=== PATIENT | female | born 1965 | race American Indian/Alaskan Native ===

== ENCOUNTER 2017-05-03 12:38 | Day surgery (SDC) | payer BC ==
[2017-05-03 13:35] LABS: BASO # 0.01 K/mm3 (0.0-2.0); BASO % 0.1 % (0.0-3.0); GRAN # 7.04 (1.4-6.5); GRAN % 89.2 % (50.0-68.0); HEMATOCRIT 32.2 % (36.0-48.0); LYMPH # 0.3 (1.2-3.4); LYMPH % 3.7 % (22.0-35.0); MEAN CELL VOLUME 77.6 fl (80.0-105.0); MEAN CORPUSCULAR HEMOGLOBIN 23.6 pg (25.0-35.0); MEAN CORPUSCULAR HGB CONC 30.4 g/dl (31.0-37.0); MEAN PLATELET VOLUME 8.8 fl (7.0-11.0); MONO # 0.6 (0.1-0.6); PLATELET COUNT 696 10^3/uL (120.0-450.0); RED CELL DISTRIBUTION WIDTH 20.5 % (11.5-14.5); WHITE BLOOD COUNT 7.9 10^3/ul (4.5-11.0)
[2017-05-03 13:39] LABS: BLOOD UREA NITROGEN 15 mg/dL (7-21); CALCIUM 9.4 mg/dL (8.4-10.5); CARBON DIOXIDE 27 mmol/L (21-33); CHLORIDE 98 mmol/L (98-107); GFR AFRICAN-AMERICAN > 60; GLUCOSE,RANDOM 92 mg/dL (70-110); POTASSIUM 3.5 mmol/L (3.6-5.0); SODIUM 139 mmol/L (132-148)
[2017-05-03 13:48] LABS: INR 1.19 (0.93-1.08); PARTIAL THROMBOPLASTIN TIME 30.7 Seconds (25.1-36.5)
[2017-05-03 14:02] VITALS: BMI 26.0
[2017-05-03 14:10] VITALS: BP 123/78; RESP 18; O2SAT 99
[2017-05-03 15:01] LABS: BAND 2 % (0-2); NEUTROPHIL 87 % (50.0-70.0); NUCLEATED RED BLOOD CELL 2 %; PLATELET ESTIMATE NORMAL (NORMAL)
[2017-05-03] MEDS ORDERED: Oxycodone/Acetaminophen 5/325 mg Tab PO PRN (15:01)
[2017-05-03 15:35] VITALS: PULSE 100; TEMP 98.5
--- NOTE | 2017-05-03 16:51 | US ---
PROCEDURE: Ultrasound guided left thoracentesis. CLINICAL HISTORY: Metastatic breast CA. New left pleural effusion. Evaluate for malignancy. Shortness of breath PHYSICIAN(S): Brennen Pool MD. TECHNIQUE: The relative risks and indications of the procedure were explained to the patient and consent obtained. The patient was placed in a sitting position on the stretcher and sonography of the right chest performed. This revealed a small leftpleural effusion. A left posterolateral intercostal approach was selected and the area prepped and draped usual sterile fashion. 1% Xylocaine was used to anesthetize the skin and soft tissues. A 7 Frisian thoracentesis catheter was trocared into the right pleural cavity and 475 ccof gallegos fluid aspirated. A cytology specimen was sent. IMPRESSION: 1. Ultrasound guided left thoracentesis. 475 cc of gallegos fluid were aspirated. A cytology specimen was sent
--- NOTE | 2017-05-04 09:17 | RAD ---
HISTORY: left thora COMPARISON: Correlations made to PET-CT performed 11/24/2015 TECHNIQUE: Chest PA and lateral FINDINGS: LUNGS: Left basilar atelectasis. PLEURA: Elevation of the left hemidiaphragm. No significant pleural effusion identified. No pneumothorax apparent. CARDIOVASCULAR: Normal. OSSEOUS STRUCTURES: No significant abnormalities. VISUALIZED UPPER ABDOMEN: Normal. OTHER FINDINGS: Right internal jugular access chest port redemonstrated. IMPRESSION: Left basilar atelectasis. No appreciable pneumothorax.
== END 2017-05-03 17:00 | disposition home or self-care (01) ==
LOC: SDS 12:38 → OPSURG 12:38
PROVIDERS: ATTEND Radiology Vascular & Interventional Radiology
DX: J90 Pleural effusion, not elsewhere classified (principal); Z85.3 Personal history of malignant neoplasm of breast
CPT/HCPCS: 32555; 36415; 71020; 80048; 85025; 85610; 85730; 88108; 88305; J2405

== ENCOUNTER 2017-06-09 16:42 | Inpatient (IN) | payer BC, MEDICARE ==
[2017-06-09 16:54] VITALS: BMI 25.8
--- NOTE | 2017-06-09 18:19 | ED PDOC ---
Arrival/HPI - General Chief Complaint: Chest Pain Time Seen by Provider: 06/09/17 17:59 Historian: Patient - History of Present Illness Narrative History of Present Illness (Text): 06/09/17 18:17 pt p/w + 1.5-2 weeks onset of worsening chest pain/pressure and weakness, + voice changes; pt states symptoms were initially intermittent, now the chest pain is constant over the last 3 days, rated at 7/10 pain; pt states + sob with exertion; + voice changes, no drooling and noted tongue deviating to the left; pt states no fever/chills/sweats, + weakness, no palpitations, no abd pain, no appetite, no n/v, no numbness/tingling, no urinary/bowel changes, no fall/trauma /sick contact, no travel; pt arrived to ED for further eval; pt's without other complaints 06/09/17 18:19 pt is an oncology patient, left Breast CA, stage 3 Time/Duration: > week Symptom Onset: Gradual Symptom Course: Worsening Quality: Tightness, Throbbing Severity Level: 7, Severe Activities at Onset: Rest Context: Home Past Medical History - Provider Review Nursing Documentation Reviewed: Yes - Travel History Have you recently traveled outside [place] w/in the past 3 mons?: No - Past History Past History: No Previous - Infectious Disease Hx of Infectious Diseases: None - Reproductive Menopause: Yes - Cardiac Hx Cardiac Disorders: No - Pulmonary Hx Respiratory Disorders: No - Neurological Hx Neurological Disorder: No - HEENT Hx HEENT Disorder: No - Renal Hx Renal Disorder: No - Endocrine/Metabolic Hx Endocrine Disorders: No - Hematological/Oncological Hx Blood Disorders: Yes Hx Cancer: Yes (BREAST CA 12/2012) Hx Chemotherapy: Yes - Integumentary Hx Dermatological Disorder: Yes Other/Comment: LEFT AXILLARY LESION - Musculoskeletal/Rheumatological Hx Musculoskeletal Disorders: No - Gastrointestinal Hx Gastrointestinal Disorders: Yes Other/Comment: CONSTIPATION - Genitourinary/Gynecological Hx Genitourinary Disorders: No - Psychiatric Hx Psychophysiologic Disorder: No Hx Substance Use: No - Surgical History Hx Mastectomy: Yes (bilateral) Other/Comment: L lynphadema - Anesthesia Hx Anesthesia Reactions: Yes (NAUSEOUS) Hx Malignant Hyperthermia: No Family/Social History - Physician Review Nursing Documentation Reviewed: Yes Family/Social History: No Known Family HX Smoking Status: Former Smoker Hx Alcohol Use: No Hx Substance Use: No Hx Substance Use Treatment: No Allergies/Home Meds Allergies/Adverse Reactions: Allergies No Known Allergies Allergy (Verified 03/26/15 13:38) Home Medications: Home Meds Medication Instructions Recorded Confirmed Percocet 10/325 mg Tab 1 tab PO Q6H PRN 05/03/17 06/09/17 Review of Systems - Review of Systems Constitutional: Fatigue. absent: Fevers Eyes: Normal ENT: Normal Respiratory: SOB Cardiovascular: Chest Pain, SALDANA Gastrointestinal: Normal Genitourinary Female: Normal Musculoskeletal: Normal Skin: Normal Neurological: Normal Endocrine: Normal Hemo/Lymphatic: Normal Psychiatric: Normal Physical Exam Vital Signs Reviewed: Yes Vital Signs Temp Pulse Resp BP Pulse Ox 06/09/17 22:00 116 H 18 118/76 97 06/09/17 20:00 113 H 18 118/70 97 06/09/17 18:50 115 H 18 114/72 97 06/09/17 16:42 9827 F H 134 H 20 110/72 97 Temperature: Afebrile Blood Pressure: Normal Pulse: Tachycardic Respiratory Rate: Normal Appearance: Positive for: Well-Appearing Pain Distress: None Mental Status: Positive for: Alert and Oriented X 3, other (uncomfortable, resting in bed, alert/awake, GCS = 15, oriented x 3, mild distress due to overall malaise, cooperative, follows commands with ease) - Systems Exam Head: Present: Atraumatic, Normocephalic Pupils: Present: PERRL, Other (wearing eyeglasses, no nystagmus, no photophobia) Extroacular Muscles: Present: EOMI Conjunctiva: Present: Normal Ears: Present: Normal Mouth: Present: Dry, Other (intact dentitions, no drooling/stridor, + slight hoarsness is noted to pt's voice, no exudate/lesions, no dysphonia, mild dry oral mucosa) Pharnyx: Present: Normal Nose (External): Present: Atraumatic Nose (Internal): Present: Normal Inspection Neck: Present: Normal Range of Motion, Trachea Midline. No: MIDLINE TENDERNESS Respiratory/Chest: Present: Clear to Auscultation, Good Air Exchange, Other ( CTA b/l, no w/r/r, faint decr breath sounds left sided; no accessory muscle use noted; + right port-a-cath is site is noted) Cardiovascular: Present: Other (+ S1, +S2, + tachy, no murmurs). No: Murmurs Abdomen: Present: Normal Bowel Sounds, Other (well nourished female, no focal tenderness, no masses/rebound/guarding/rigidity, no quintero's sign, no mcburney' s point tenderness) Back: Present: Normal Inspection. No: CVA Tenderness, Midline Tenderness Upper Extremity: Present: Other (+ left arm swelling (hx of lymphedema); intact ROM, neurovasc intact b/l, strength 5/5 grossly intact in all limbs, no focal tenderness on exam) Lower Extremity: Present: Normal Inspection, NORMAL PULSES, Normal ROM, Neurovascularly Intact, Capillary Refill < 2 s. No: Edema, CALF TENDERNESS, Chivo's Sign Neurological: Present: GCS=15, CN II-XII Intact, Speech Normal, Other (noted left tongue deviation, no slurr speech, no facial asymmetries) Skin: Present: Warm, Normal Color, Other (cap refill < 1sec, no ulcerations, no petechiae) Psychiatric: Present: Alert, Oriented x 3 Medical Decision Making ED Course and Treatment: 06/09/17 18:25 Impression: chest pain, r/o acs; tachycardia, r/o PE; r/o effusion, r/o worsening breast cancer i have consider all the differential diagnosis regarding pt's chief medical complaints/clinical findings, including but are not limited to: r/o PE, ACS, r/ o effusion, r/o infection A/P: chest pain, tachycardia - labs - iv - xray - ct - observe - supportive care 06/09/17 20:55- Discussed Case with Dr. Guzmán. Made aware of patient's complaints. Request Head CT with and without contrast be done. agrees with patient admission, to PCP/medicine 06/09/17 21:14- Dr. Pittman made aware of patient's emergent complaints, diagnostic finds, and emergency department management. Is agreeable with emergency department admission/observation placement. States that she will relinquish her admitting role on June 14, stated that hospitalist to be called for admission. I Will contact hospitalist for admission. 06/09/17 23:32 I spoke to hospitalists, Dr FOFANA mortgage operations manager, made aware, agrees with admission, would like patient admitted to DR CARDENAS (hospitalists) Dr VIERA is at bedsided/ADMITTING team is at bedside and evaluated patient pt is made aware of her medical results agrees with admission Re-evaluation Time: 23:32 Reassessment Condition: Improving,but remains with symptoms - Critical Care Critical Care Minutes: 45 minutes Critical Care Time: Excluding Proc Time Narrative Critical Care (Text): 06/09/17 23:35 critical care time: 45min, excluding procedure time, excluding time teaching residents/students/mid-level providers; including initial eval/diagnosis, diagnostic interpretation, re-eval, consultations, final disposition - Lab Interpretations Lab Results: 06/09/17 18:21 06/09/17 18:21 Lab Results 06/09/17 18:21: Phosphorus 2.3 L 06/09/17 18:21: PT 13.8 H, INR 1.21 H, APTT 56.0 H 06/09/17 18:21: Sodium 138, Chloride 94 L, Potassium 2.6 L* D, Carbon Dioxide 23 , Anion Gap 24 H, BUN 6 L, Creatinine 0.4 L, Est GFR ( Amer) > 60, Est GFR (Non-Af Amer) > 60, Random Glucose 59 L, Calcium 8.4, Total Bilirubin 0.8, AST 48 H, ALT 22, Alkaline Phosphatase 192 H, Lactate Dehydrogenase 1198 H, Total Creatine Kinase 105, Troponin I < 0.01, NT-Pro-B Natriuret Pep 228, Total Protein 6.0, Albumin 3.3, Globulin 2.7, Albumin/Globulin Ratio 1.2 06/09/17 18:21: WBC 34.2 H* D, RBC 3.78, Hgb 9.2 L, Hct 31.9 L, MCV 84.4 D, MCH 24.3 L, MCHC 28.8 L, RDW 24.3 H, Plt Count 507 H, MPV 9.3, Gran % 93.3 H, Lymph % (Auto) 2.5 L, Briscoe % (Auto) 3.9, Eos % (Auto) 0.1 L, Baso % (Auto) 0.2, Gran # 31.90 H, Lymph # 0.8 L, Briscoe # 1.4 H, Eos # 0.0, Baso # 0.07, Neutrophils % (Manual) 92 H, Band Neutrophils % 4 H, Lymphocytes % (Manual) 2 L , Monocytes % (Manual) 2, Nucleated RBC % 1, Platelet Evaluation High, Polychromasia Slight, Hypochromasia 2+, Poikilocytosis (manual Slight, Anisocytosis (manual) 1+, Tear Drop Cells Slight, Ovalocytes Slight 06/09/17 16:40: pO2 87 H, VBG pH 7.39, VBG pCO2 32.0 L, VBG HCO3 19.4 L, VBG Total CO2 20.4 L, VBG O2 Sat (Calc) 99.6 H, VBG Base Excess -4.6 L, VBG Potassium 1.8 L*, Sodium 141.0, Chloride 106.0, Glucose 53 L, Lactate 2.8 H, FiO2 21.0, Venous Blood Potassium 1.8 L* I have reviewed the lab results: Yes Interpretation: Abnormal lab values (elevated WBCs, elevated LDH, decr K) - RAD Interpretation Narrative RAD Interpretations (Text): 06/09/17 23:39 CXR: rotated, + left lung opacification, right rocio-cath, as read by me EXAM: CT Angiography Chest With Intravenous Contrast Dictated and Authenticated by: Nancy Bruno MD 06/09/2017 11:59 PM No pulmonary embolism although evaluation is limited by bolus timing (the aorta is optimally opacified rather than the pulmonary arteries). Dictated and Authenticated by: Nancy Bruno MD 06/09/2017 11:59 PM IMPRESSION: Bilateral breast implants. Loculated left pleural effusion with surrounding rim raising the possibility of empyema. Small right pleural effusion. Left axillary edema and soft tissue density. Left lower chest wall edema extending into the upper abdomen. Right lung nodules. Mediastinal and left hilar lymph nodes. Compression fractures age indeterminate. EXAM: CT Neck Without Intravenous Contrast Dictated and Authenticated by: Nancy Bruno MD 06/10/2017 12:26 AM IMPRESSION: Study limited by lack of intravenous contrast especially in patient with known malignancy. Left clavicular lymphadenopathy. Edema of the left trapezius muscle and surrounding fat. Heterogeneity C7 and T1 vertebrae EXAM: CT Head Without and With Intravenous Contrast Dictated and Authenticated by: Nancy Bruno MD 06/10/2017 1:05 AM IMPRESSION: No acute findings Radiology Orders: 06/09/17 18:12 CHEST ONE VIEW [RAD] Stat 06/09/17 18:14 ANGIO CHEST PE PROTOCOL [CT] Stat 06/09/17 18:15 NECK SOFT TISSUE W/O CONTRAST [CT] Stat 06/09/17 20:53 HEAD W/WO CONTRAST [CT] Stat Flamer After Lasting: ED Physician, Radiologist - EKG Interpretation EKG Interpretation (Text): 06/09/17 18:26 Sinus tach at 130 bpm, normal axis, no ectopy, inverted T in leads III, diffuse low voltage, non-specific st-t changes, ABNL EKG; mild changes compare with old ekg 05/201306/09/17 23:41 Interpreted by ED Physician: Yes Type: 12 lead EKG Comparison: Different from prev. EKG - Medication Orders Current Medication Orders: Famotidine (Pepcid) 40 mg PO HS KHARI Hydromorphone HCl (Dilaudid) 1 mg IVP Q4 PRN PRN Reason: Pain, severe (8-10) Last Admin: 06/10/17 10:57 Dose: 1 mg MAR Pain Assessment Document 06/10/17 10:57 [id number] (Rec: 06/10/17 10:57 [id number] [id number]) Pain Reassessment Is this a pain reassessment? No Sleep Is patient sleeping during reassessment? No Presence of Pain Presence of Pain Yes Pain Scale Used Pain Scale Used Numeric Location Left, Right or Bilateral Left Upper or Lower Upper Pain Location Body Site Arm Description Description Intermittent Intensity of Pain at present 8 Pain Behavior Perspiration Facial Grimacing Aggravating Factors None Alleviating Factors/Management Medication Techniques Position Change Alleviating Factors Medication IVP Administration Document 06/10/17 10:57 [id number] (Rec: 06/10/17 10:57 [id number] [id number]) Charges for Administration # of IVP Administrations 2 Sodium Chloride (Sodium Chloride 0.9%) 1,000 mls @ 100 mls/hr IV .Q10H KHARI Last Admin: 06/10/17 01:44 Dose: 100 mls/hr eMAR Start Stop Document 06/10/17 01:44 KTR (Rec: 06/10/17 01:44 KTR [id number]) Intravenous Solution Start Date 06/10/17 Start Time 01:44 Potassium Chloride (Potassium Chloride 10 Meq/100 Ml) 10 meq in 100 mls @ 50 mls/hr IVPB Q3H KHARI Stop: 06/10/17 16:44 Last Admin: 06/10/17 10:57 Dose: 50 mls/hr eMAR Start Stop Document 06/10/17 10:57 [id number] (Rec: 06/10/17 10:58 [id number]) Intravenous Solution Start Date 06/10/17 Start Time 10:58 Meropenem (Merrem Iv 1 Gm Premix) 50 mls @ 100 mls/hr IVPB Q8 KHARI PRN Reason: Protocol Stop: 06/19/17 14:01 Vancomycin HCl (Vancomycin 1gm) 1 gm in 250 mls @ 167 mls/hr IVPB Q12H KHARI PRN Reason: Protocol Stop: 06/19/17 10:46 Last Admin: 06/10/17 10:59 Dose: 167 mls/hr eMAR Start Stop Document 06/10/17 10:59 [id number] (Rec: 06/10/17 11:00 [email or web address] [id number]) Intravenous Solution Start Date 06/10/17 Start Time 11:00 End Date 06/10/17 Nystatin (Nystop Topical Powder) 1 gm TOP DAILY KHARI Discontinued Medications Aspirin (Aspirin Supp) 300 mg RC STAT STA Stop: 06/09/17 18:47 Last Admin: 06/09/17 19:05 Dose: 300 mg Diphenhydramine HCl (Benadryl) 10 mg IVP STAT STA Stop: 06/10/17 01:38 Last Admin: 06/10/17 01:45 Dose: 10 mg Comments: 0.2ml drawn IVP Administration Document 06/10/17 01:45 KTR (Rec: 06/10/17 01:45 KTR [id number]) Charges for Administration # of IVP Administrations 1 Diphenhydramine HCl (Benadryl) 25 mg IVP STAT STA Stop: 06/10/17 02:10 Last Admin: 06/10/17 02:19 Dose: Hydrocortisone Sodium Succinate (Solu-Cortef) 100 mg IVP ONCE ONE Stop: 06/10/17 02:12 Last Admin: 06/10/17 03:19 Dose: 100 mg IVP Administration Document 06/10/17 03:19 KTR (Rec: 06/10/17 03:19 KTR [id number]) Charges for Administration # of IVP Administrations 1 Hydromorphone HCl (Dilaudid) 1 mg IVP STAT STA Stop: 06/09/17 20:34 Last Admin: 06/09/17 20:37 Dose: 1 mg MAR Pain Assessment Document 06/09/17 20:37 JOL (Rec: 06/09/17 20:37 [id number] Pain Reassessment Is this a pain reassessment? Yes Sleep Is patient sleeping during reassessment? No Presence of Pain Presence of Pain Yes Pain Scale Used Pain Scale Used Numeric Description Intensity of Pain at present 7 IVP Administration Document 06/09/17 20:37 JOL (Rec: 06/09/17 20:37 [id number] Charges for Administration # of IVP Administrations 1 Hydromorphone HCl (Dilaudid) 1 mg IVP Q4 KHARI Potassium Chloride (Potassium Chloride 10 Meq/100 Ml) 10 meq in 100 mls @ 50 mls/hr IVPB Q2H KHARI Stop: 06/09/17 23:29 Last Admin: 06/09/17 23:01 Dose: 50 mls/hr eMAR Start Stop Document 06/09/17 23:01 JOL (Rec: 06/09/17 23:02 [id number] Intravenous Solution Start Date 06/09/17 Start Time 23:02 End Date 06/10/17 End time 01:02 Total Infusion Time 120 Lactated Ringer's (Lactated Ringer's) 1,000 mls @ 100 mls/hr IV .Q10H [facility] Last Admin: 06/09/17 23:20 Dose: 100 mls/hr eMAR Start Stop Document 06/09/17 23:20 JOL (Rec: 06/09/17 23:20 [id number] Intravenous Solution Start Date 06/09/17 Start Time 23:20 Vancomycin HCl (Vancomycin 1gm) 1 gm in 250 mls @ 167 mls/hr IVPB Q12H KHARI PRN Reason: Protocol Last Admin: 06/10/17 01:43 Dose: 167 mls/hr eMAR Start Stop Document 06/10/17 01:43 KTR (Rec: 06/10/17 01:44 KTR [id number]) Intravenous Solution Start Date 06/10/17 Start Time 01:44 Piperacillin Sod/Tazobactam Sod (Zosyn 4.5 Gm In Ns 100ml) 4.5 gm in 100 mls @ 200 mls/hr IVPB Q6 KHARI PRN Reason: Protocol Stop: 06/10/17 12:29 Last Admin: 06/10/17 06:14 Dose: 200 mls/hr eMAR Start Stop Document 06/10/17 06:14 KTR (Rec: 06/10/17 06:14 KTR [id number]) Intravenous Solution Start Date 06/10/17 Start Time 06:14 Lactated Ringer's (Lactated Ringer's) 1,000 mls @ 999 mls/hr IV .Q1H1M KHARI Stop: 06/10/17 02:30 Last Admin: 06/10/17 03:19 Dose: 999 mls/hr eMAR Start Stop Document 06/10/17 03:19 KTR (Rec: 06/10/17 03:20 KTR [id number]) Intravenous Solution Start Date 06/10/17 Start Time 03:20 Ketorolac Tromethamine (Toradol) 15 mg IVP STAT STA Stop: 06/10/17 00:35 Last Admin: 06/10/17 01:11 Dose: 15 mg MAR Pain Assessment Document 06/10/17 01:11 [place] (Rec: 06/10/17 01:13 [place] [id number]) Pain Reassessment Is this a pain reassessment? No Sleep Is patient sleeping during reassessment? No Presence of Pain Presence of Pain Yes Pain Scale Used Pain Scale Used Numeric Location Left, Right or Bilateral Left Pain Location Body Site Chest Back Arm Hip Description Description Constant Intensity of Pain at present 10 Pain Behavior Moaning IVP Administration Document 06/10/17 01:11 [place] (Rec: 06/10/17 01:13 [place] [id number]) Charges for Administration # of IVP Administrations 1 Morphine Sulfate (Morphine) 4 mg IVP STAT STA Stop: 06/09/17 18:27 Last Admin: 06/09/17 19:01 Dose: 4 mg MAR Pain Assessment Document 06/09/17 19:01 RG (Rec: 06/09/17 19:12 RG [id number]) Pain Reassessment Is this a pain reassessment? Yes Sleep Is patient sleeping during reassessment? No Presence of Pain Presence of Pain Yes Pain Scale Used Pain Scale Used Numeric Location Left, Right or Bilateral Bilateral Upper or Lower Upper Pain Location Body Site Chest Description Description Constant Pain Behavior Irritability IVP Administration Document 06/09/17 19:01 GIOVANI (Rec: 06/09/17 19:12 GIOVANI ROBERT-PC) Charges for Administration # of IVP Administrations 1 Potassium Chloride (Potassium Chloride Oral Soln) 40 meq PO ONCE ONE Stop: 06/10/17 01:32 Last Admin: 06/10/17 01:44 Dose: 40 meq Disposition/Present on Arrival - Present on Arrival Any Indicators Present on Arrival: No History of DVT/PE: No History of Uncontrolled Diabetes: No Urinary Catheter: No History of Decub. Ulcer: No History Surgical Site Infection Following: None - Disposition Have Diagnosis and Disposition been Completed?: Yes Diagnosis: Chest pain with moderate risk for cardiac etiology, Pleural effusion, Breast cancer, Dysphagia, Leukocytosis, Hypokalemia Disposition: HOSPITALIZED Disposition Time: 23:42 Patient Plan: Admission, Telemetry Patient Problems: Current Active Problems Problem Status Onset Chest pain with moderate risk for cardiac etiology Acute Pleural effusion Acute Breast cancer Acute Dysphagia Acute Leukocytosis Acute Hypokalemia Acute Condition: STABLE
[2017-06-09] MEDS ORDERED: Morphine 4 mg/ml ISec IVP STA (18:26)
[2017-06-09 18:31] LABS: BASO # 0.07 K/mm3 (0.0-2.0); BASO % 0.2 % (0.0-3.0); EOS % 0.1 % (1.5-5.0); GRAN % 93.3 % (50.0-68.0); HEMOGLOBIN 9.2 g/dL (12.0-16.0); LYMPH # 0.8 (1.2-3.4); LYMPH % 2.5 % (22.0-35.0); MEAN CELL VOLUME 84.4 fl (80.0-105.0); MEAN CORPUSCULAR HEMOGLOBIN 24.3 pg (25.0-35.0); MEAN CORPUSCULAR HGB CONC 28.8 g/dl (31.0-37.0); MEAN PLATELET VOLUME 9.3 fl (7.0-11.0); MONO # 1.4 (0.1-0.6); MONO % 3.9 % (1.0-6.0); PLATELET COUNT 507 10^3/uL (120.0-450.0); RBC 3.78 10^6/uL (3.5-6.1); RED CELL DISTRIBUTION WIDTH 24.3 % (11.5-14.5)
[2017-06-09 18:43] LABS: WHITE BLOOD COUNT 34.2 10^3/ul (4.5-11.0)
[2017-06-09 19:01] LABS: INR 1.21 (0.93-1.08); PROTHROMBIN TIME 13.8 SECONDS (9.4-12.5)
[2017-06-09 19:08] LABS: B-TYPE NATRIURETIC PEPTIDE 228 pg/mL (0-450); TROPONIN I < 0.01 ng/mL
[2017-06-09 19:18] LABS: ANISOCYTOSIS 1+; BAND 4 % (0-2); HYPOCHROMIA 2+; LYMPHOCYTE 2 % (22.0-35.0); MONOCYTE 2 % (1.0-6.0); NEUTROPHIL 92 % (50.0-70.0); NUCLEATED RED BLOOD CELL 1 %; OVALOCYTES SLIGHT; PLATELET ESTIMATE HIGH (NORMAL); POIKILOCYTOSIS SLIGHT; POLYCHROMASIA SLIGHT; TEAR DROP CELLS SLIGHT
[2017-06-09 19:19] LABS: ALB/GLOB RATIO 1.2 (1.1-1.8); ALBUMIN 3.3 g/dL (3.0-4.8); ALT/SGPT 22 U/L (7-56); AST/SGOT 48 U/L (14-36); BLOOD UREA NITROGEN 6 mg/dL (7-21); CALCIUM 8.4 mg/dL (8.4-10.5); GFR AFRICAN-AMERICAN > 60; GFR NON-AFRICAN AMERICAN > 60
[2017-06-09 19:33] LABS: VENOUS BLOOD GAS BASE EXCESS -4.6 mmol/L (0.0-2.0); VENOUS BLOOD GAS PO2 87 mm/Hg (30-55); VENOUS BLOOD PH 7.39 (7.32-7.43)
[2017-06-09] MEDS ORDERED: HYDROmorphone 0.5 mg/0.5 ml ISec IVP STA (20:33)
[2017-06-09] MEDS ORDERED: HYDROmorphone 1 mg/ml ISec ONE (20:36)
[2017-06-09] MEDS ORDERED: Iodixanol 320 mg/ml 150 ml Bottle IV ONE (21:15)
--- NOTE | 2017-06-09 21:33 | CP.PCM.HP ---
<Bari Piña - Last Filed: 06/10/17 00:35> History of Present Illness - History of Present Illness History of Present Illness: CC: Chest Discomfort + Dysphagia/hoarseness of voice Subjective: HPI: Patient is a 51 year old female with past medical history of stage 4 breast who presents to the emergency department for evaluation and treatment of chest discomfort and dysphagia/hoarseness of voice. States the dysphagia/hoarseness of voice began 3 days ago and denies specific provoking events. Admits to progressive dysphagia starting with difficultly swallowing solids and progressing to fluids. Currently is undergoing chemotherapy, last session was 2 weeks ago. Also admits to chest discomfort that remains localized to parasternal region and is described as being dull/aching with associated with diaphoresis. Denies exacerbating/remitting factors. Also admits to chronic left sided tongue deviation since April 2017. Patient states that Dr. Butts is aware of the deviation and attributes it to radiation therapy. Admits to baseline dyspnea on exertion. Admits to fungal rash in left axillary region. Denies recent travel and sick contacts. Patient denies intractable headache, fever, chills, dizziness, blurry vision, ringing in the ears, abdominal pain, nausea, vomiting, diarrhea, constipation, and urinary symptoms. ROS: 12 point review of systems negative except as indicated in HPI PMHx: stage 4 breast cancer currently undergoing chemotherapy PSHx: double mastectomy, right wall chest port instertion Family Hx: sister- breast cancer, grandparents- HTN, DM Social Hx: denies ETOH use, tobacco use, former marijuana use, quit within last year Medications: Please see medication reconciliation PMD: Dr. Obrien Pharmacy: [facility] Oncologist: Dr. Butts Physical Examination: - Constitutional Appears: Non-toxic, No Acute Distress - Head Exam Head Exam: atraumatic, normocephalic - Eye Exam Eye Exam: Normal appearance, PERRL. absent: Scleral icterus - ENT Exam ENT Exam: Mucous Membranes Moist - Neck Exam Neck exam: Normal Inspection - Respiratory Exam Respiratory Exam: Normal Breathing Pattern, diminshed breath sounds left lobe - Cardiovascular Exam Cardiovascular Exam: tachycardic +S1, +S2. absent: Gallop, JVD - GI/Abdominal Exam GI & Abdominal Exam: Normal Bowel Sounds, absent: Distended, Guarding, Pulsatile Mass, Rebound, Rigid - Extremities Exam Extremities exam: Negative for: calf tenderness - Neurological Exam Neurological exam: Patient is awake, alert, responds to verbal stimuli, answers questions appropriately, follows commands; cannot move left UE, left tongue deviation - Psychiatric Exam Psychiatric exam: Normal Affect, Normal Mood - Skin Skin Exam: right chest wall port, no erythema no swelling around port site; left arm swelling; rash present left axilla Assessment and Plan: Patient is a 51 year old female with past medical history of who was admitted for evaluation and treatment of chest discomfort and dysphagia/hoarseness of voice. Dysphagia, Hoarseness of Voice - head CT- No acute findings - soft tissue neck CT- Left clavicular lymphadenopathy. Edema of the left trapezius muscle and surrounding fat. Heterogeneity C7 and T1 vertebrae - consider soft tissue neck and chest CT with IV contrast pending findings of modified barium swallow evaluation and patient's clinical course - speech swallow evaluation - NPO - modified barium swallow ordered and pending - GI consulted- appreciate recommendations Sepsis, Empyema - tachycadia, leukocytosis, elevated lactic acid - blood cultures x 2 - urine culture - IVF NS @ 100 - vancomycin and zosyn - UA ordered and pending at the time of admission - CT surgery consulted- Dr. Balderrama, appreciate recommendations - Infectious disease consulted- appreciate recommendations Chest Pain - rule out ACS - EKG reviewed and appreciated - sinus tachycardia, low voltage QRS, HR 129, Qtc 436 - cardiac enzymes q8h x 3, first troponins negative - lipid profile and A1C pending - CT angiography- No pleural embolism, Bilateral breast implants. Loculated left pleural effusion with surrounding rim raising the possibility of empyema. Small right pleural effusion. Left axillary edema and soft tissue density. Left lower chest wall edema extending into the upper abdomen. Right lung nodules. Mediastinal and left hilar lymph nodes. Compression fractures age indeterminate. - consider cardiology consult pending patient's clinical course Rash - nystatin Stage IV Breast Cancer - hematology/oncology consulted- appreciate reocommendations Hypokalemia - repleted - monitor closely via CMP - mag/phos levels ordered and pending Elevated LFTs - avoid hepatotoxins - monitor closely via CMP Anemia - Hgb reviewed, trended, and appreciated - monitor closely via CBC Prophylaxis - DVT ppx- scds - GI ppx- famotidine Patient case discussed with and plan approved by attending physician. 06/09/17 21:29 Present on Admission - Present on Admission Any Indicators Present on Admission: No Past Patient History - Infectious Disease Hx of Infectious Diseases: None - Past Medical History & Family History Past Medical History?: Yes - Past Social History Smoking Status: Former Smoker - CARDIAC Hx Cardiac Disorders: No - PULMONARY Hx Respiratory Disorders: No - NEUROLOGICAL Hx Neurological Disorder: No - HEENT Hx HEENT Problems: No - RENAL Hx Chronic Kidney Disease: No - ENDOCRINE/METABOLIC Hx Endocrine Disorders: No - HEMATOLOGICAL/ONCOLOGICAL Hx Blood Disorders: Yes Hx Cancer: Yes (BREAST CA 12/2012) Hx Chemotherapy: Yes - INTEGUMENTARY Hx Dermatological Problems: Yes Other/Comment: LEFT AXILLARY LESION - MUSCULOSKELETAL/RHEUMATOLOGICAL Hx Musculoskeletal Disorders: No - GASTROINTESTINAL Hx Gastrointestinal Disorders: Yes Other/Comment: CONSTIPATION - GENITOURINARY/GYNECOLOGICAL Hx Genitourinary Disorders: No - PSYCHIATRIC Hx Psychophysiologic Disorder: No Hx Substance Use: No - SURGICAL HISTORY Hx Mastectomy: Yes (bilateral) Other/Comment: L lynphadema - ANESTHESIA Hx Anesthesia Reactions: Yes (NAUSEOUS) Hx Malignant Hyperthermia: No Meds Allergies/Adverse Reactions: Allergies Allergy/AdvReac Type Severity Reaction Status Date / Time No Known Allergies Allergy Verified 03/26/15 13:38 Results - Vital Signs Recent Vital Signs: Last Vital Signs Temp 9827 F H 06/09/17 16:42 Pulse 115 H 06/09/17 18:50 Resp 18 06/09/17 18:50 BP 114/72 06/09/17 18:50 Pulse Ox 97 06/09/17 18:50 - Labs Result Diagrams: 06/09/17 18:21 06/09/17 18:21 Labs: Laboratory Results - last 24 hr 06/09/17 06/09/17 06/09/17 16:40 18:21 18:21 WBC 34.2 H* D RBC 3.78 Hgb 9.2 L Hct 31.9 L MCV 84.4 D MCH 24.3 L MCHC 28.8 L RDW 24.3 H Plt Count 507 H MPV 9.3 Gran % 93.3 H Lymph % (Auto) 2.5 L [place] % (Auto) 3.9 Eos % (Auto) 0.1 L Baso % (Auto) 0.2 Gran # 31.90 H Lymph # 0.8 L [place] # 1.4 H Eos # 0.0 Baso # 0.07 Neutrophils % (Manual) 92 H Band Neutrophils % 4 H Lymphocytes % (Manual) 2 L Monocytes % (Manual) 2 Nucleated RBC % 1 Platelet Evaluation High Polychromasia Slight Hypochromasia 2+ Poikilocytosis (manual Slight Anisocytosis (manual) 1+ Tear Drop Cells Slight Ovalocytes Slight PT INR APTT pO2 87 H VBG pH 7.39 VBG pCO2 32.0 L VBG HCO3 19.4 L VBG Total CO2 20.4 L VBG O2 Sat (Calc) 99.6 H VBG Base Excess -4.6 L VBG Potassium 1.8 L* Sodium 141.0 138 Chloride 106.0 94 L Glucose 53 L Lactate 2.8 H FiO2 21.0 Potassium 2.6 L* D Carbon Dioxide 23 Anion Gap 24 H BUN 6 L Creatinine 0.4 L Est GFR ( Amer) > 60 Est GFR (Non-Af Amer) > 60 Random Glucose 59 L Calcium 8.4 Total Bilirubin 0.8 AST 48 H ALT 22 Alkaline Phosphatase 192 H Lactate Dehydrogenase 1198 H Total Creatine Kinase 105 Troponin I < 0.01 NT-Pro-B Natriuret Pep 228 Total Protein 6.0 Albumin 3.3 Globulin 2.7 Albumin/Globulin Ratio 1.2 Venous Blood Potassium 1.8 L* 06/09/17 18:21 WBC RBC Hgb Hct MCV MCH MCHC RDW Plt Count MPV Gran % Lymph % (Auto) [place] % (Auto) Eos % (Auto) Baso % (Auto) Gran # Lymph # [place] # Eos # Baso # Neutrophils % (Manual) Band Neutrophils % Lymphocytes % (Manual) Monocytes % (Manual) Nucleated RBC % Platelet Evaluation Polychromasia Hypochromasia Poikilocytosis (manual Anisocytosis (manual) Tear Drop Cells Ovalocytes PT 13.8 H INR 1.21 H APTT 56.0 H pO2 VBG pH VBG pCO2 VBG HCO3 VBG Total CO2 VBG O2 Sat (Calc) VBG Base Excess VBG Potassium Sodium Chloride Glucose Lactate FiO2 Potassium Carbon Dioxide Anion Gap BUN Creatinine Est GFR ( Amer) Est GFR (Non-Af Amer) Random Glucose Calcium Total Bilirubin AST ALT Alkaline Phosphatase Lactate Dehydrogenase Total Creatine Kinase Troponin I NT-Pro-B Natriuret Pep Total Protein Albumin Globulin Albumin/Globulin Ratio Venous Blood Potassium <Mino Ann Q - Last Filed: 06/10/17 06:21> Results - Vital Signs Recent Vital Signs: Last Vital Signs Temp 98.2 F 06/10/17 06:00 Pulse 109 H 06/10/17 06:00 Resp 2 L 06/10/17 06:00 BP 113/70 06/10/17 06:00 Pulse Ox 97 06/10/17 06:00 - Labs Result Diagrams: 06/09/17 18:21 06/09/17 18:21 Labs: Laboratory Results - last 24 hr 06/09/17 06/10/17 23:15 01:24 pO2 56 H VBG pH 7.38 VBG pCO2 41.0 VBG HCO3 24.3 VBG Total CO2 25.6 VBG O2 Sat (Calc) 93.1 H VBG Base Excess -0.8 L VBG Potassium 2.8 L Sodium 139.0 Chloride 97.0 L Glucose 62 L Lactate 3.3 H FiO2 21.0 Lactate Dehydrogenase 1095 H Total Creatine Kinase 114 Troponin I < 0.01 Venous Blood Potassium 2.8 L Attending/Attestation - Attestation I have personally seen and examined this patient.: Yes I have fully participated in the care of the patient.: Yes I have reviewed all pertinent clinical information: Yes Notes (Text): 06/10/17 06:18 I agree with the above note and exam by the resident with the addition/ exception of the followin51 y/o female with a recurrence of Breast Ca x 3 since her original diagnosis in 2009 presents to the ED with 3 days of hoarse voice and approximately 1 week of dysphagia to solids progressing to liquids. Patient underwent a noncontrast CT of her neck ordered by the ED Physician without any significant findings to explain her current symptoms; will obtain a modified barrium swallow and consider repeating CT neck/chest with IV contrast to further evaluate her posterior pharynx and larynx. Also found to have leukocytosis with an empyema which will likely need to be drained if she is not entirely responsive to IV Abx (Vanco/Zosyn started for empiric coverage). Also with profound hypokalemia, without reports of excessive diuresis or diarrhea; aggressive replacement therapy was given overnight; awaiting repeat labwork this morning.
[2017-06-09] MEDS ORDERED: Lactated Ringer's 1,000 ML IV SCH (22:30)
[2017-06-09 23:30] LABS: VENOUS BLOOD GAS BASE EXCESS -0.8 mmol/L (0.0-2.0); VENOUS BLOOD GAS PO2 56 mm/Hg (30-55); VENOUS BLOOD PH 7.38 (7.32-7.43)
--- NOTE | 2017-06-09 23:59 | CT ---
EXAM: CT Angiography Chest With Intravenous Contrast EXAM DATE/TIME: 06/09/2017 6:14 PM CLINICAL HISTORY: 51 years old, female; Signs and symptoms; Other: Stage 3 breast cancer, left cp/ r. O p. E TECHNIQUE: Axial computed tomographic angiography images of the chest with intravenous contrast using pulmonary embolism protocol. All CT scans at this facility use one or more dose reduction techniques, viz.: automated exposure control; ma/kV adjustment per patient size (including targeted exams where dose is matched to indication; i.e. head); or iterative reconstruction technique. MIP reconstructed images were created and reviewed. Coronal and sagittal reformatted images were created and reviewed. CONTRAST: 80 mL of [id number] administered intravenously. COMPARISON: DX - CHEST TWO VIEWS (PA/LAT) 2017-05-03 15:08 FINDINGS: There is a right-sided portacatheter with tip in the SVC. There is artifact from the patient's arms. There are bilateral breast implants. A loculated left pleural effusion is present. There is suggestion of a rim-enhancing tissue raising the possibility of empyema. There is a small right pleural effusion. There is edema and ill defined soft tissue density in the left axillary region. Per prior report, the patient has a history of metastatic lymph nodes in this region. There is edema and fluid in the left lateral lower chest. The fluid and edema extends into the upper abdomen. The inferior extent is not included on this study. No pulmonary embolism although evaluation is limited by bolus timing (the aorta is optimally opacified rather than the pulmonary arteries). No aortic dissection or aneurysm. There is a 8mm nodule in the right mid lung image 147 series 2 and a 9 x 13 mm nodule image 98. Recommend correlation with prior studies and subsequent follow up based on Wilfred criteria. Mediastinal and left hilar lymph nodes are present. Without prior studies, it is difficult to determine this represents a change from the patient's baseline. The visualized solid organs of the upper abdomen appear normal. There is decreased height of the T11 vertebral body with slight anterior angulation consistent with compression fracture age indeterminate. There is also slight depression of the superior endplate of T12. Heterogeneity of the C7 vertebral body IMPRESSION: Bilateral breast implants. Loculated left pleural effusion with surrounding rim raising the possibility of empyema. Small right pleural effusion. Left axillary edema and soft tissue density. Left lower chest wall edema extending into the upper abdomen. Right lung nodules. Mediastinal and left hilar lymph nodes. Compression fractures age indeterminate.
--- NOTE | 2017-06-10 00:27 | CT ---
EXAM: CT Neck Without Intravenous Contrast EXAM DATE/TIME: 06/09/2017 6:15 PM CLINICAL HISTORY: 51 years old, female; Signs and symptoms; Other: + voice change, + l side something is blocking; Additional info: + voice change, + l side something is blocking TECHNIQUE: Axial computed tomography images of the neck without intravenous contrast. All CT scans at this facility use one or more dose reduction techniques, viz.: automated exposure control; ma/kV adjustment per patient size (including targeted exams where dose is matched to indication; i.e. head); or iterative reconstruction technique. Coronal and sagittal reformatted images were created and reviewed. COMPARISON: No relevant prior studies available. FINDINGS: Catheter entering the SVC. Dental fillings produce artifact. Small amount of fluid in the mastoid air cells bilaterally. Heterogeneity of the C7 and T1 vertebrae. Metastatic disease cannot be excluded. Multiple left supraclavicular lymph nodes. Without prior studies, I cannot determine whether this represents a change from the patient's baseline. The airway is patent. A normal epiglottis is identified. There is no abnormality identified within the laryngeal region to account for the patient's reported voice change however evaluation is limited by lack of intravenous contrast. There is extensive edema of the left trapezius muscle and surrounding fat. IMPRESSION: Study limited by lack of intravenous contrast especially in patient with known malignancy. Left clavicular lymphadenopathy. Edema of the left trapezius muscle and surrounding fat. Heterogeneity C7 and T1 vertebrae.
[2017-06-10] MEDS ORDERED: HYDROmorphone 0.5 mg/0.5 ml ISec IVP PRN ×2 (00:50→18:18)
[2017-06-10] MEDS ORDERED: Dextrose 50% SYRINGE Inj (50 ml) ONE (00:59)
--- NOTE | 2017-06-10 01:06 | CT ---
EXAM: CT Head Without and With Intravenous Contrast EXAM DATE/TIME: 06/09/2017 8:53 PM CLINICAL HISTORY: 51 years old, female; Signs and symptoms; Other: R/O CVA, R/O masses/lesions TECHNIQUE: Axial computed tomography images of the head/brain without and with intravenous contrast. All CT scans at this facility use one or more dose reduction techniques, viz.: automated exposure control; ma/kV adjustment per patient size (including targeted exams where dose is matched to indication; i.e. head); or iterative reconstruction technique. Coronal and sagittal reformatted images were created and reviewed. CONTRAST: 60 mL of visipaque 320 administered intravenously. COMPARISON: No relevant prior studies available. FINDINGS: There is mild atrophy and mild chronic small vessel ischemic disease. There is no hemorrhage or edema. No abnormal areas of enhancement. No significant fluid in the sinuses. The osseous structures are normal. IMPRESSION: No acute findings.
[2017-06-10] MEDS ORDERED: Vancomycin 1gm in NS 250ml 1 GM/250 ML BAG IVPB SCH (01:30)
[2017-06-10] MEDS ORDERED: Lactated Ringer's 1,000 ML IV SCH (01:30)
[2017-06-10] MEDS ORDERED: Potassium Chloride 40 mEq/30 ml LIQ UD PO ONE ×2 (01:31→22:58)
[2017-06-10] MEDS ORDERED: DiphenhydrAMINE 50 mg/ml Inj IVP STA ×2 (01:37→02:09)
[2017-06-10] MEDS: Sodium Chloride 0.9% 1,000 ML IV SCH ×2 (01:44→22:49)
[2017-06-10 02:15] LABS: TROPONIN I < 0.01 ng/mL
[2017-06-10] MEDS: HYDROmorphone 0.5 mg/0.5 ml ISec IVP PRN ×4 (03:19→15:21)
[2017-06-10] MEDS ORDERED: HYDROmorphone 0.5 mg/0.5 ml ISec IVP SCH (04:00)
[2017-06-10] MEDS ORDERED: Piperacill/Tazo 4.5gm in NS 4.5 GM/100 ML BAG IVPB SCH (06:00)
--- NOTE | 2017-06-10 06:14 | CON ---
DATE: COVERING FOR: Dr. Butts. Consultation was requested for the patient, Teodora Cheng. HISTORY OF PRESENT ILLNESS: Teodora Cheng is a 51-year-old -Indian female with history of breast cancer dating back to 2013. In that year, the patient states that she was treated for either stage II or III breast cancer to completion, but had a relapse of her disease in the left axilla in 02/2014. She also notes that she developed metastasis to the lumbar spine in 02/2017. She also received proton beam therapy to the left chest and axilla in 12/2016. Ms. Cheng presents to the Emergency Department complaining of hoarseness for 3 days associated with dry mouth. She notes that she has had deviated tongue for sometime. She does have some dysphagia of solids and liquids over the past 3 days as well. Over the past few months, she noticed some dyspnea on exertion and this has increased in recent days. She also experienced some chest discomfort in the mid region of her chest, describes as dull and aching associated with some diaphoresis. An MRI of brain was done in 04/2017 that was negative for metastatic disease. The patient states that MRI was not performed here at [facility] The patient denies hemoptysis, cough, fevers, chills, nausea, vomiting, diarrhea, myalgias, headache, change in vision, confusion or memory loss. PAST MEDICAL HISTORY: Metastatic breast cancer. PAST SURGICAL HISTORY: Mastectomy, right internal jugular Port-A-cath. FAMILY HISTORY: Her sister has breast cancer. Grandparents have hypertension and diabetes. SOCIAL HISTORY: The patient denies ethanol abuse or drug abuse. She smoked in the remote past. CURRENT MEDICATIONS: Percocet 10/325 one tablet p.o. q.6 hours p.r.n. ALLERGIES: NO KNOWN ALLERGIES. THE PATIENT HAD CONTRAST BEFORE WITHOUT ANY PROBLEMS, SHE STATES. REVIEW OF SYSTEMS: A 12-point review of system is negative other than HPI. The patient denies history of diabetes, stroke, blood clot, bleeding disorders, or other malignancies. In the Emergency Room, the patient received Lactated Ringer's, famotidine 40 mg p.o., aspirin and Dilaudid 1 mg IV and morphine 1 mg IV push. PHYSICAL EXAMINATION GENERAL: The patient is awake, alert and oriented x3. Her voice is slightly hoarse. Speech is not slurred. There is no aphasia. HEENT: No facial droop or cranial nerve abnormality. There is deviation of the tongue; however, to the left, there is no mucosal swelling of the tongue or buccal mucosa. Lips are not swollen. VITAL SIGNS: Temperature 98, pulse rate 134 down to 115 two hours after admission, blood pressure 110/72, respirations 20 and O2 saturation 97 on room air. NECK: The right IJ Port-A-cath is palpated in the right neck. There is no JVD. Neck is supple. No swelling of the neck or face. BREASTS: Not examined. The patient was being taken to CAT scan, only partial exam was done. ABDOMEN: Soft. EXTREMITIES: No cyanosis, clubbing or edema; however, there was significant lymphedema of the left upper extremity, which is chronic. LABORATORY DATA: White count 34, hemoglobin 9.2, platelets 507, granulocytes 93.3, 2.5, eosinophil 1.0, neutrophils 92, bands 4, and lymphocytes 2. One nucleated RBC was noted on the smear evaluation with elevated platelets and some polychromasia or hypochromasia, 1+ anisocytosis and slight teardrop. PT 13.8, INR 1.21, PTT 56. Potassium was 2.6. AST was 48, alk phos 182, LDH 1198. Phosphorus was slightly low at 2.3, glucose was 59, BUN 6, creatinine 0.4, anion gap 24. PO2 on blood gas was 87, pCO2 of 32, pH 7.39. EKG read as sinus tach with low voltage, heart rate 129. First troponins were negative. IMPRESSION: Teodora Cheng is a 51-year-old female stage IV metastatic carcinoma of the breast, who presents with multiple complaints, the more acute complaints have been chest pain, progression of chronic dyspnea, and new-onset hoarseness over the last 3 days. Two weeks ago, the patient had her second dose of unknown chemotherapeutic agent. The patient has had some dysphagia of solids and then liquids. She also complained of dry mouth. The plan is to rule out pulmonary embolus, pericardial effusion, progressive malignant pleural effusion. Rule out progressive disease in the chest cavity, possibly involving laryngeal nerve, rule out metastatic disease in the neck, rule out meningeal disease to explain deviated tongue and dysphagia, rule out superior vena cava syndrome to explain hoarseness, though her arm swelling since her recent chemotherapy has improved somewhat and there was no obvious facial swelling or neck swelling, and this may be less likely. Leukocytosis, rule out sepsis, rule out filgrastim drug effect, rule out hypersensitivity to purely new chemotherapeutic agent. She has received new drugs twice, last dose was 2 weeks ago. She will also obtain her oncologic records to evaluate the exact location of her radiation port and determine if such treatment would effect her swallowing, vocal cord function. PLAN: CT angiogram test with CT head included and CT scan of the soft tissues of the neck. Chest x-ray, procalcitonin, repeat PTT. This patient requires anticoagulation therapy and will need to have accurate baseline, perhaps was heparin contamination from the port when it was drawn, and also if the patient is to undergo procedures, we would need more accurate coagulation profile, anticipating interventions. Chest x-ray shows whiteout of the left lung suggesting of pleural effusion, this was done in semi-erect position. She will need a Pulmonary consultation. We await CT scan results. The patient also need an echocardiogram due to her low voltage EKG, and after that, compare EKGs to her prior visit if possible, which will able to evaluate the precordium CT angiogram of the chest. More than likely her LDH is related to progressive metastatic disease. Trice Sosa MD
[2017-06-10 07:25] LABS: VENOUS BLOOD GAS BASE EXCESS -0.8 mmol/L (0.0-2.0); VENOUS BLOOD GAS PO2 185 mm/Hg (30-55); VENOUS BLOOD PH 7.41 (7.32-7.43)
[2017-06-10 07:31] LABS: BASO # 0.06 K/mm3 (0.0-2.0); BASO % 0.2 % (0.0-3.0); GRAN # 34.93 (1.4-6.5); GRAN % 95.5 % (50.0-68.0); HEMOGLOBIN 9.1 g/dL (12.0-16.0); LYMPH # 0.8 (1.2-3.4); LYMPH % 2.1 % (22.0-35.0); MEAN CELL VOLUME 84.1 fl (80.0-105.0); MEAN CORPUSCULAR HEMOGLOBIN 24.6 pg (25.0-35.0); MEAN CORPUSCULAR HGB CONC 29.3 g/dl (31.0-37.0); MONO # 0.8 (0.1-0.6); MONO % 2.2 % (1.0-6.0); RBC 3.7 10^6/uL (3.5-6.1); RED CELL DISTRIBUTION WIDTH 24.1 % (11.5-14.5)
[2017-06-10 07:38] LABS: PH,URINE 6.5 (4.7-8.0); URINE BILIRUBIN SMALL (NEGATIVE); URINE BLOOD NEGATIVE (NEGATIVE); URINE GLUCOSE (UA) NEGATIVE (NEGATIVE); URINE LEUKOCYTE ESTERASE NEGATIVE Leu/uL (NEGATIVE); URINE NITRATE NEGATIVE (NEGATIVE); URINE PROTEIN TRACE mg/dL (<30 mg/dL); URINE UROBILINOGEN 0.2 E.U./dL (<1 E.U./dL)
[2017-06-10 07:39] LABS: WHITE BLOOD COUNT 36.6 10^3/ul (4.5-11.0)
[2017-06-10 07:40] LABS: INR 1.14 (0.93-1.08); PARTIAL THROMBOPLASTIN TIME 30.1 Seconds (25.1-36.5); PROTHROMBIN TIME 13.1 SECONDS (9.4-12.5)
[2017-06-10 07:42] LABS: URINE APPEARANCE CLEAR (CLEAR); URINE COLOR YELLOW (YELLOW)
[2017-06-10 07:57] LABS: BLOOD UREA NITROGEN 4 mg/dL (7-21); CALCIUM 8.7 mg/dL (8.4-10.5); GFR AFRICAN-AMERICAN > 60; GFR NON-AFRICAN AMERICAN > 60; HDL CHOLESTEROL 30 mg/dL (29-60)
[2017-06-10 07:58] LABS: ALB/GLOB RATIO 1.2 (1.1-1.8); ALBUMIN 3.4 g/dL (3.0-4.8); ALT/SGPT 23 U/L (7-56); AST/SGOT 46 U/L (14-36)
[2017-06-10 08:00] LABS: LDL CHOLESTEROL 47 mg/dL (0-129); TROPONIN I < 0.01 ng/mL
[2017-06-10 08:15] LABS: URINE RBC NEGATIVE /hpf (0-2); URINE WBC NEGATIVE /hpf (0-6)
[2017-06-10 08:16] LABS: URINE BACTERIA TRACE (NEG); URINE EPITHELIAL CELLS 0 - 2 /hpf (0-5)
--- NOTE | 2017-06-10 09:43 | RAD ---
PROCEDURE: CHEST RADIOGRAPH, 1 VIEW HISTORY: sob, hx of left breast cancer COMPARISON: 05/03/2017 FINDINGS: The right MediPort terminates at the cavoatrial junction. LUNGS: There is complete opacification of the left hemithorax and a large pleural-based opacity in the lower lobe. The right lung is clear. PLEURA: No pneumothorax or pleural fluid seen. CARDIOVASCULAR: Normal. OSSEOUS STRUCTURES: No significant abnormalities. VISUALIZED UPPER ABDOMEN: Normal. OTHER FINDINGS: None. IMPRESSION: Worsening large left pleural effusion with likely loculated fluid versus pleural based mass in the left lower lobe.
--- NOTE | 2017-06-10 10:14 | CP.PCM.CON ---
History of Present Illness - History of Present Illness History of Present Illness: Thoracic Surgery Consult note. Dr. Das 51yo F with PMHx of metastatic breast CA on Chemo/Radiation, here for evaluation of dysphagia (solids), worsening dyspnea, and dysphasia (hoarseness) . Patient states that she has had worsening SOB for 1 week now and difficulty swallowing for the past 3 days, also associated with hoarseness of voice. She denies any F/C. No N/V/D. Difficulty swallowing solids at this time and getting worse to where she is unable to swallow thick liquids. She denies any recent illness. She does report similar shortness of breath last month and had a thoracenthesis performed at that time by Dr. Brennen Pool, IR. 500cc of gallegos colored fluid removed at that time. She denies any headaches. She is currently still receiving chemo and radiation as per Dr. Butts, her primary oncologist. In ED, CT chest shows evidence of left-sided loculated pleural effusion PMHx: Metastatic breast CA PSHx: Bilateral Mastectomy 2013, Portacath placement 2013, Left sided thoracenthesis Social Hx: Lives at home, decreased mobility due to lower extremity weakness 2/ 2 spinal met. Denies Tobacco; Denies ETOH; Previous Marijuana use NKDA Review of Systems - Constitutional Constitutional: absent: Chills, Fever - EENT Nose/Mouth/Throat: Change in Voice, Dysphagia, Hoarsness - Cardiovascular Cardiovascular: Dyspnea, Dyspnea on Exertion - Respiratory Respiratory: Dyspnea - Gastrointestinal Gastrointestinal: absent: Abdominal Pain, Nausea, Vomiting - Genitourinary Genitourinary: absent: Dysuria - Musculoskeletal Musculoskeletal: Back Pain Past Patient History - Infectious Disease Hx of Infectious Diseases: None - Past Medical History & Family History Past Medical History?: Yes - Past Social History Smoking Status: Former Smoker - CARDIAC Hx Cardiac Disorders: No - PULMONARY Hx Respiratory Disorders: No - NEUROLOGICAL Hx Neurological Disorder: No - HEENT Hx HEENT Problems: No - RENAL Hx Chronic Kidney Disease: No - ENDOCRINE/METABOLIC Hx Endocrine Disorders: No - HEMATOLOGICAL/ONCOLOGICAL Hx Blood Disorders: Yes Hx Cancer: Yes (BREAST CA 12/2012) Hx Chemotherapy: Yes - INTEGUMENTARY Hx Dermatological Problems: Yes Other/Comment: LEFT AXILLARY LESION - MUSCULOSKELETAL/RHEUMATOLOGICAL Hx Musculoskeletal Disorders: No - GASTROINTESTINAL Hx Gastrointestinal Disorders: Yes Other/Comment: CONSTIPATION - GENITOURINARY/GYNECOLOGICAL Hx Genitourinary Disorders: No - PSYCHIATRIC Hx Psychophysiologic Disorder: No Hx Substance Use: No - SURGICAL HISTORY Hx Mastectomy: Yes (bilateral) Other/Comment: L lynphadema - ANESTHESIA Hx Anesthesia Reactions: Yes (NAUSEOUS) Hx Malignant Hyperthermia: No Meds Allergies/Adverse Reactions: Allergies Allergy/AdvReac Type Severity Reaction Status Date / Time No Known Allergies Allergy Verified 03/26/15 13:38 - Medications Medications: Current Medications Famotidine (Pepcid) 40 mg PO HS KHARI Hydromorphone HCl (Dilaudid) 1 mg IVP Q4 PRN PRN Reason: Pain, severe (8-10) Last Admin: 06/10/17 07:05 Dose: 1 mg Vancomycin HCl (Vancomycin 1gm) 1 gm in 250 mls @ 167 mls/hr IVPB Q12H KHARI PRN Reason: Protocol Last Admin: 06/10/17 01:43 Dose: 167 mls/hr Piperacillin Sod/Tazobactam Sod (Zosyn 4.5 Gm In Ns 100ml) 4.5 gm in 100 mls @ 200 mls/hr IVPB Q6 KHARI PRN Reason: Protocol Stop: 06/10/17 12:29 Last Admin: 06/10/17 06:14 Dose: 200 mls/hr Sodium Chloride (Sodium Chloride 0.9%) 1,000 mls @ 100 mls/hr IV .Q10H KHARI Last Admin: 06/10/17 01:44 Dose: 100 mls/hr Potassium Chloride (Potassium Chloride 10 Meq/100 Ml) 10 meq in 100 mls @ 50 mls/hr IVPB Q3H KHARI Stop: 06/10/17 16:44 Last Admin: 06/10/17 09:32 Dose: 50 mls/hr Nystatin (Nystop Topical Powder) 1 gm TOP DAILY KHARI Physical Exam - Constitutional Appears: Older Than Stated Age, Chronically Ill - Head Exam Head Exam: ATRAUMATIC, NORMAL INSPECTION, NORMOCEPHALIC - Eye Exam Eye Exam: EOMI. absent: Scleral icterus - ENT Exam ENT Exam: Mucous Membranes Dry Additional comments: symmetrical elevation of posterior palate. Tongue deviation to left No apparent palpable lymphadenopathy in neck region - Neck Exam Neck exam: Positive for: Full Rom - Respiratory Exam Additional comments: mildly short of breath during patient encounter Dullness to percussion on left lower bases decreased breath sounds left base No accessory muscle use - Cardiovascular Exam Cardiovascular Exam: absent: JVD - GI/Abdominal Exam GI & Abdominal Exam: Soft. absent: Distended, Firm, Guarding, Rebound, Rigid, Tenderness - Extremities Exam Extremities exam: Negative for: calf tenderness Additional comments: left upper extremity axillary lymphadenopathy with lymphedema - Neurological Exam Neurological exam: Alert, Oriented x3 - Psychiatric Exam Psychiatric exam: Flat Affect - Skin Skin Exam: Dry, Intact, Normal Color, Warm Results - Vital Signs Recent Vital Signs: Last Vital Signs Temp 98.2 F 06/10/17 06:00 Pulse 109 H 06/10/17 06:00 Resp 2 L 06/10/17 06:00 BP 113/70 06/10/17 06:00 Pulse Ox 97 06/10/17 06:00 - Labs Result Diagrams: 06/10/17 07:10 06/10/17 07:10 Labs: Laboratory Results - last 24 hr 06/09/17 06/10/17 06/10/17 23:15 00:18 01:24 WBC RBC Hgb Hct MCV MCH MCHC RDW Plt Count MPV Gran % Lymph % (Auto) Mason % (Auto) Eos % (Auto) Baso % (Auto) Gran # Lymph # Mason # Eos # Baso # PT INR APTT pO2 56 H VBG pH 7.38 VBG pCO2 41.0 VBG HCO3 24.3 VBG Total CO2 25.6 VBG O2 Sat (Calc) 93.1 H VBG Base Excess -0.8 L VBG Potassium 2.8 L Sodium 139.0 Chloride 97.0 L Glucose 62 L Lactate 3.3 H FiO2 21.0 Potassium Carbon Dioxide Anion Gap BUN Creatinine Est GFR ( Amer) Est GFR (Non-Af Amer) POC Glucose (mg/dL) 61 L Random Glucose Calcium Phosphorus Magnesium Total Bilirubin AST ALT Alkaline Phosphatase Lactate Dehydrogenase 1095 H Total Creatine Kinase 114 Troponin I < 0.01 Total Protein Albumin Globulin Albumin/Globulin Ratio Triglycerides Cholesterol LDL Cholesterol Direct HDL Cholesterol Venous Blood Potassium 2.8 L Urine Color Urine Appearance Urine pH Ur Specific Lenox Urine Protein Urine Glucose (UA) Urine Ketones Urine Blood Urine Nitrate Urine Bilirubin Urine Urobilinogen Ur Leukocyte Esterase Urine RBC Urine WBC Ur Epithelial Cells Urine Bacteria Urine Other 06/10/17 06/10/17 06/10/17 06:30 07:10 07:10 WBC 36.6 H* RBC 3.70 Hgb 9.1 L Hct 31.1 L MCV 84.1 MCH 24.6 L MCHC 29.3 L RDW 24.1 H Plt Count 508 H MPV 9.0 Gran % 95.5 H Lymph % (Auto) 2.1 L Mason % (Auto) 2.2 Eos % (Auto) 0.0 L Baso % (Auto) 0.2 Gran # 34.93 H Lymph # 0.8 L Mason # 0.8 H Eos # 0.0 Baso # 0.06 PT INR APTT pO2 VBG pH VBG pCO2 VBG HCO3 VBG Total CO2 VBG O2 Sat (Calc) VBG Base Excess VBG Potassium Sodium 140 Chloride 98 Glucose Lactate FiO2 Potassium 2.8 L* Carbon Dioxide 24 Anion Gap 22 H BUN 4 L Creatinine 0.4 L Est GFR ( Amer) > 60 Est GFR (Non-Af Amer) > 60 POC Glucose (mg/dL) Random Glucose 84 Calcium 8.7 Phosphorus 2.3 L Magnesium 2.0 Total Bilirubin 0.8 AST 46 H ALT 23 Alkaline Phosphatase 170 H Lactate Dehydrogenase 1128 H Total Creatine Kinase 110 Troponin I < 0.01 Total Protein 6.4 Albumin 3.4 Globulin 3.0 Albumin/Globulin Ratio 1.2 Triglycerides 270 H Cholesterol 120 L LDL Cholesterol Direct 47 HDL Cholesterol 30 Venous Blood Potassium Urine Color Yellow Urine Appearance Clear Urine pH 6.5 Ur Specific Lenox 1.010 Urine Protein Trace H Urine Glucose (UA) Negative Urine Ketones >=80 Urine Blood Negative Urine Nitrate Negative Urine Bilirubin Small H Urine Urobilinogen 0.2 Ur Leukocyte Esterase Negative Urine RBC Negative Urine WBC Negative Ur Epithelial Cells 0 - 2 Urine Bacteria Trace Urine Other Uyeast 06/10/17 06/10/17 07:10 07:10 WBC RBC Hgb Hct MCV MCH MCHC RDW Plt Count MPV Gran % Lymph % (Auto) Mason % (Auto) Eos % (Auto) Baso % (Auto) Gran # Lymph # Mason # Eos # Baso # PT 13.1 H INR 1.14 H APTT 30.1 pO2 185 H VBG pH 7.41 VBG pCO2 37.0 L VBG HCO3 23.5 VBG Total CO2 24.6 VBG O2 Sat (Calc) 100.3 H VBG Base Excess -0.8 L VBG Potassium 2.7 L Sodium 140.0 Chloride 100.0 Glucose 84 Lactate 3.3 H FiO2 21.0 Potassium Carbon Dioxide Anion Gap BUN Creatinine Est GFR ( Amer) Est GFR (Non-Af Amer) POC Glucose (mg/dL) Random Glucose Calcium Phosphorus Magnesium Total Bilirubin AST ALT Alkaline Phosphatase Lactate Dehydrogenase Total Creatine Kinase Troponin I Total Protein Albumin Globulin Albumin/Globulin Ratio Triglycerides Cholesterol LDL Cholesterol Direct HDL Cholesterol Venous Blood Potassium 2.7 L Urine Color Urine Appearance Urine pH Ur Specific Lenox Urine Protein Urine Glucose (UA) Urine Ketones Urine Blood Urine Nitrate Urine Bilirubin Urine Urobilinogen Ur Leukocyte Esterase Urine RBC Urine WBC Ur Epithelial Cells Urine Bacteria Urine Other Assessment & Plan - Assessment and Plan (Free Text) Assessment: 51yo F with left sided loculated pleural effusion, progressive dysphagia and dyspasia - CT Chest noted - CT neck noted - Severe leukocytosis Plan: - Continue Abx as per ID - Recommend Pulmonology consult - Recommend IR thoracenthesis for evaluation of pleural fluid analysis - F/u GI recs - May consider ENT eval if patient would like aggressive workup - Further surgical recs pending pleural fluid analysis - We will follow Further recs as per Dr. Pippa Lieberman PGY1 surgery pager: [phone]
[2017-06-10] MEDS: Vancomycin 1gm in NS 250ml 1 GM/250 ML BAG IVPB SCH ×2 (10:59→22:17)
[2017-06-10] MEDS: Nystatin 100,000 Units/gm Topical Pow(15 gm) TOP SCH (11:32)
[2017-06-10] MEDS: Meropenem IV 1 gm in NS 50 ML IVPB SCH ×2 (15:21→21:19)
--- NOTE | 2017-06-10 15:29 | CP.PCM.PN ---
<Dino Mar - Last Filed: 06/10/17 15:20> Subjective - Date & Time of Evaluation Date of Evaluation: 06/10/17 Time of Evaluation: 08:15 - Subjective Subjective: IM Progress Note for Hospitalist Service Patient seen and examined at bedside. No acute events overnight since admission. Today, complains of some persisting hoarseness and difficultly swallowing, as well as dry throat. Denies acute chest pain, shortness of breath , productive cough, nausea, emesis, diarrhea, or focal weakness. Baseline left arm swelling and immobility 2/2 lymphedema as per pt. Has very poor insight into her condition and overall prognosis, as she states her only goal is "to get better." Objective - Vital Signs/Intake and Output Vital Signs (last 24 hours): Temp Pulse Resp BP Pulse Ox 99 F 137 H 24 125/83 98 06/10/17 14:09 06/10/17 14:09 06/10/17 14:09 06/10/17 14:09 06/10/17 14:09 - Medications Medications: Current Medications Famotidine (Pepcid) 40 mg PO HS KHARI Hydromorphone HCl (Dilaudid) 1 mg IVP Q4 PRN PRN Reason: Pain, severe (8-10) Last Admin: 06/10/17 10:57 Dose: 1 mg Sodium Chloride (Sodium Chloride 0.9%) 1,000 mls @ 100 mls/hr IV .Q10H KHARI Last Admin: 06/10/17 01:44 Dose: 100 mls/hr Potassium Chloride (Potassium Chloride 10 Meq/100 Ml) 10 meq in 100 mls @ 50 mls/hr IVPB Q3H KHARI Stop: 06/10/17 16:44 Last Admin: 06/10/17 10:57 Dose: 50 mls/hr Meropenem (Merrem Iv 1 Gm Premix) 50 mls @ 100 mls/hr IVPB Q8 KHARI PRN Reason: Protocol Stop: 06/19/17 14:01 Vancomycin HCl (Vancomycin 1gm) 1 gm in 250 mls @ 167 mls/hr IVPB Q12H KHARI PRN Reason: Protocol Stop: 06/19/17 10:46 Last Admin: 06/10/17 10:59 Dose: 167 mls/hr Nystatin (Nystop Topical Powder) 1 gm TOP DAILY KHARI Last Admin: 06/10/17 11:32 Dose: 1 appl - Labs Labs: 06/10/17 07:10 06/10/17 07:10 PT 13.1 SECONDS (9.4-12.5) H 06/10/17 07:10 INR 1.14 (0.93-1.08) H 06/10/17 07:10 APTT 30.1 Seconds (25.1-36.5) 06/10/17 07:10 - Constitutional Appears: Non-toxic, No Acute Distress - Head Exam Head Exam: ATRAUMATIC, NORMAL INSPECTION, NORMOCEPHALIC - Eye Exam Eye Exam: EOMI, Normal appearance. absent: Conjunctival injection, Scleral icterus Pupil Exam: absent: Irregular, Unequal - ENT Exam ENT Exam: Mucous Membranes Moist Additional comments: no oral thrush appreciated - Neck Exam Neck Exam: absent: Lymphadenopathy, Tenderness Additional comments: fullness/edematousness at region of left SCM and scalene muscles - Respiratory Exam Respiratory Exam: Decreased Breath Sounds (mildly decreased breath sounds along bilateral bases, L>R), NORMAL BREATHING PATTERN. absent: Accessory Muscle Use, Chest Wall Tenderness, Clear to Ausculation Bilateral, Rales, Rhonchi, Wheezes - Cardiovascular Exam Cardiovascular Exam: REGULAR RHYTHM, RRR, +S1, +S2. absent: Bradycardia, Tachycardia, Irregular Rhythm, JVD, +S4 - GI/Abdominal Exam GI & Abdominal Exam: Soft, Normal Bowel Sounds. absent: Distended, Firm, Rigid , Tenderness - Extremities Exam Extremities Exam: absent: Calf Tenderness, Pedal Edema Additional comments: grossly edematous and taut left upper extremity (as per patient, edematous at baseline, arm is currently at mildly better than baseline, no acute changes) non-edematous bilateral lower extremities - Neurological Exam Additional comments: awake and alert, moving RUE and bilateral LE spontaneously, some spontaneous movement of left hand uses right hand and arm to lift left arm when auscultating left lateral lung denis - Psychiatric Exam Psychiatric exam: Normal Affect, Normal Mood - Skin Skin Exam: Dry, Intact, Normal Color, Warm Additional comments: increased warmth along left arm and shoulder, where extremity is grossly edematous Assessment and Plan - Assessment and Plan (Free Text) Assessment: Patient is a 51 year old female with past medical history of who was admitted for evaluation and treatment of chest discomfort and dysphagia/hoarseness of voice. She is currently being managed for odonophagia and hoarseness in setting of metastatic breast cancer, and left sided pleural effusion vs possible empyema. Plan: 1) Dysphagia, Hoarseness of Voice - head CT- No acute findings - soft tissue neck CT- Left clavicular lymphadenopathy. Edema of the left trapezius muscle and surrounding fat. Heterogeneity C7 and T1 vertebrae - consider soft tissue neck and chest CT with IV contrast pending findings of modified barium swallow evaluation and patient's clinical course - Seen by speech, requires Barium swallow study, pureed with thin liquids okay' ed prior to barium study - GI consulted- appreciate recommendations - ENT consulted 2) Sepsis, Empyema - tachycadia, leukocytosis, elevated lactic acid; worsening leukocytosis today - blood cultures x 2, urine culture pending, procal pending - IVF NS @ 100 - UA not indicative of urinary infection - CT surgery consulted- Dr. Balderrama, appreciate recommendations; recs Pulm consult, IR to diagnostic tap to confirm if empyema; if positive for empyema will likely require thoracotomy; dysphagia/odonophagia likely requires EGD, defer to GI for this - Infectious disease consulted- appreciate recommendations; pt now on Vanc/ Merrem - Pulm consulted, appreciate all recs 3) Chest Pain - rule out ACS - EKG reviewed and appreciated - sinus tachycardia, low voltage QRS, HR 129, Qtc 436; repeat EKG today shows sinus tachy to 139 - trops x3 negative - lipid profile reviewed, elevated TG at 270, HDL low at 30; A1C pending - CT angiography- No pleural embolism, Bilateral breast implants. Loculated left pleural effusion with surrounding rim raising the possibility of empyema. Small right pleural effusion. Left axillary edema and soft tissue density. Left lower chest wall edema extending into the upper abdomen. Right lung nodules. Mediastinal and left hilar lymph nodes. Compression fractures age indeterminate. 4) Rash - continue nystatin 5) Stage IV Breast Cancer - hematology/oncology consulted- appreciate recommendations - prognosis is poor, palliative consulted - per pt, was pending another chemotherapy tx on Sunday06/13/17; will likely need to be deferred given possible empyema 6) Hypokalemia - repleted overnight, but still hypoK to 2.8, additional PO and IV potassium ordered - continue to monitor 7) Elevated LFTs - stable - essentially unchanged from admission, continue to monitor - avoid hepatotoxins 8) Anemia - stable - Hgb 9.1, was 9.2 - continue to monitor 9) Left upper extremity swell Dispo: Tele; pending IR eval and possible thoracentesis, pending Heme-onc recs, pending palliative eval and recs FEN: Pureed with thin liquids, pending barium swallow study Access: Peripheral IV, R chest port Consults: GI, ENT, Heme-onc, CT surgery, Palliative, IR, Pulm Ppx: Protonix for GI, Heparin for DVT (will transfer to [facility] after potential procedures completed) Patient seen, reviewed, and discussed with attending, Dr. Major <Jermaine Major - Last Filed: 06/10/17 16:35> Objective - Vital Signs/Intake and Output Vital Signs (last 24 hours): Temp Pulse Resp BP Pulse Ox 99 F 137 H 24 125/83 98 06/10/17 14:09 06/10/17 14:09 06/10/17 14:09 06/10/17 14:09 06/10/17 14:09 - Medications Medications: Current Medications Famotidine (Pepcid) 40 mg PO HS KHARI Heparin Sodium (Porcine) (Heparin) 5,000 units SC Q8 KHARI PRN Reason: Protocol Hydromorphone HCl (Dilaudid) 1 mg IVP Q4 PRN PRN Reason: Pain, severe (8-10) Last Admin: 06/10/17 15:21 Dose: 1 mg Sodium Chloride (Sodium Chloride 0.9%) 1,000 mls @ 100 mls/hr IV .Q10H KHARI Last Admin: 06/10/17 01:44 Dose: 100 mls/hr Potassium Chloride (Potassium Chloride 10 Meq/100 Ml) 10 meq in 100 mls @ 50 mls/hr IVPB Q3H KHARI Stop: 06/10/17 16:44 Last Admin: 06/10/17 15:19 Dose: 50 mls/hr Meropenem (Merrem Iv 1 Gm Premix) 50 mls @ 100 mls/hr IVPB Q8 KHARI PRN Reason: Protocol Stop: 06/19/17 14:01 Last Admin: 06/10/17 15:21 Dose: 100 mls/hr Vancomycin HCl (Vancomycin 1gm) 1 gm in 250 mls @ 167 mls/hr IVPB Q12H KHARI PRN Reason: Protocol Stop: 06/19/17 10:46 Last Admin: 06/10/17 10:59 Dose: 167 mls/hr Nystatin (Nystop Topical Powder) 1 gm TOP DAILY KHARI Last Admin: 06/10/17 11:32 Dose: 1 appl - Labs Labs: 06/10/17 07:10 PT 13.1 SECONDS (9.4-12.5) H 06/10/17 07:10 INR 1.14 (0.93-1.08) H 06/10/17 07:10 APTT 30.1 Seconds (25.1-36.5) 06/10/17 07:10 Attending/Attestation - Attestation I have personally seen and examined this patient.: Yes I have fully participated in the care of the patient.: Yes I have reviewed all pertinent clinical information, including history, physical exam and plan: Yes Notes (Text): 06/10/17 16:30 Patient was seen and examined with medical scientific liaison. Family is at bed side Agreed with resident assessment and plan. 51 yrs old female with a recurrence of Breast Cancer since her original diagnosis in 2009 presents to the ED yesterday with 3 days of hoarse voice and approximately 1 week of dysphagia to solids progressing to liquids Patient has odynophagia, no H/O nausea or vomiting, has mild hoarseness, Patient underwent a noncontrast CT of her neck ordered by the ED Physician last night is without any significant findings to explain her current symptoms; CT chest showed loculated left Pleural effusion,we will consult IR for thoracentesis to , rule out empyema .Patient has Leukocytosis, on IV antibiotics as per ID.We will follow up cultures. We will also get 2D Echo. Prognosis is guarded. Management plan was discussed in detail with patient Education was provided. .
--- NOTE | 2017-06-10 15:33 | RAD ---
PROCEDURE: Radiographs of the Left Shoulder HISTORY: Metastatic breast to bone and pain left arm and shoulder COMPARISON: No prior. FINDINGS: BONES: There is diffuse bone demineralization. There is no acute displaced fracture or bone destruction. Bone alignment is normal. JOINTS: There is mild degenerative osteoarthrosis in the acromioclavicular joint. The glenohumeral joint is normal SOFT TISSUES: Normal. OTHER FINDINGS: None. IMPRESSION: No acute fracture or bone destruction.
--- NOTE | 2017-06-10 15:37 | RAD ---
PROCEDURE: Radiographs of the Chest and Left Ribs. HISTORY: pain left chest COMPARISON: CTA chest from 06/09/2017 TECHNIQUE: Frontal radiograph of the chest and multiple oblique radiographs of the left ribs were obtained. FINDINGS: LEFT RIBS: There is no acute rib fracture or bone destruction. LUNGS: There is redemonstration of small left pleural effusion and large loculated effusion along the lateral chest wall with compressive atelectasis in the left lung. PLEURA: No pneumothorax . CARDIOVASCULAR: Normal sized heart. No pulmonary vascular congestion. OTHER FINDINGS: None. IMPRESSION: No acute rib fracture or bone destruction. Large loculated effusion along the left lateral chest wall with compressive atelectasis of the lung and small left pleural effusion.
[2017-06-10 16:04] LABS: VENOUS BLOOD GAS BASE EXCESS -1.5 mmol/L (0.0-2.0); VENOUS BLOOD GAS PO2 49 mm/Hg (30-55)
[2017-06-10 16:27] LABS: TROPONIN I < 0.01 ng/mL
[2017-06-10 16:45] LABS: BLOOD UREA NITROGEN 5 mg/dL (7-21); CALCIUM 8.6 mg/dL (8.4-10.5); GFR AFRICAN-AMERICAN > 60; GFR NON-AFRICAN AMERICAN > 60
[2017-06-10] MEDS ORDERED: HYDROmorphone 1 mg/ml ISec IVP STA (18:17)
[2017-06-10] MEDS ORDERED: HYDROmorphone 0.5 mg/0.5 ml ISec IVP STA (18:25)
--- NOTE | 2017-06-10 19:10 | CARD ---
APPROVED REPORT EKG Measurement Heart [id number] <Conclusion> Poor data quality, interpretation may be adversely affected Sinus tachycardia Low voltage QRS Nonspecific T wave abnormality Abnormal ECG
--- NOTE | 2017-06-10 19:34 | CARD ---
APPROVED REPORT EKG Measurement Heart [id number] ID [id number] <Conclusion> Sinus tachycardia Low voltage QRS Septal infarct, age undetermined Abnormal ECG
--- NOTE | 2017-06-10 19:36 | CARD ---
APPROVED REPORT EKG Measurement Heart [id number] <Conclusion> Sinus tachycardia T wave abnormality, consider inferior ischemia T wave abnormality, consider anterior ischemia Abnormal ECG
[2017-06-10] MEDS: HYDROmorphone 1 mg/ml ISec IVP PRN (21:19)
--- NOTE | 2017-06-10 22:15 | CON ---
DATE: 06/10/2017 LOCATION: The patient was seen earlier today in 374, bed 2. CHIEF COMPLAINT: Left-sided arm edema, erythema and chest pain. HISTORY OF PRESENT ILLNESS: This is a 51-year-old female with history of breast cancer and who had bilateral mastectomy in the past resulting in a left arm chronic lymphedema. The patient was seen in the emergency room. The patient has undergone chemotherapy for her stage IV breast cancer with diabetes and hypertension. PAST MEDICAL HISTORY: Metastatic stage IV breast cancer. The patient had low-grade fevers. No chills, no abdominal pain. She did have chest pain. Past medical history is significant for stage IV breast cancer and left arm chronic lymphedema. PAST SURGICAL HISTORY: Significant for bilateral mastectomy, had a right chest wall Port-A-Cath. ALLERGIES: THE PATIENT HAS NO KNOWN ALLERGIES. FAMILY HISTORY: Significant for diabetes and hypertension. The patient is currently on chemotherapy. PHYSICAL EXAMINATION VITAL SIGNS: The patient's temperature is 98, blood pressure is 113/70, respiratory rate of 20, heart rate of 111. HEENT: Unremarkable. NECK: Supple. LUNGS: Have decreased breath sounds. HEART: Normal S1 and S2. ABDOMEN: Soft and nontender. No rebound or guarding. EXTREMITIES: Examination of the left arm reveals edema and erythema and warm to touch. Pulse is intact. LABORATORY DATA: Laboratory examination reveals a white count of 34,000, hemoglobin of 9, platelets of 507, 93% granulocytosis. Coagulation is noted. Chemistries reveal a BUN of 4, creatinine of 0.4 and urinalysis is noted. The patient had a chest x-ray, which shows a complete opacification of left hemithorax and right lung is clear. There is pleural based opacity noted in the left lower lobe. The patient had a CAT scan of the chest, loculated left pleural effusion, possibility of an empyema, small right pleural effusion, breast implants. There is a right-sided [id number] seen in the tip in SVC. ASSESSMENT AND PLAN: This is a 51-year-old female with stage IV breast cancer, who is status post chemotherapy, left arm chronic lymphedema, presenting with left-sided pleuritic chest pain and left arm erythema and edema with positive chest x-ray with sepsis with left arm cellulitis and healthcare-associated pneumonia. We will treat the patient with vancomycin and meropenem. Discontinue the Zosyn and we will order a procalcitonin. Blood and urine cultures have been ordered. We will review the CAT scan of the chest and we will make further recommendations pending panculture results, procalcitonin, and review of the old microbiology. If there is no microbiology available, we will also order an HIV test because of the patient's age of 51. Arthur Rodriguez MD
[2017-06-10 22:44] LABS: VENOUS BLOOD GAS BASE EXCESS -1.7 mmol/L (0.0-2.0); VENOUS BLOOD GAS PO2 65 mm/Hg (30-55); VENOUS BLOOD PH 7.34 (7.32-7.43)
[2017-06-11] MEDS: HYDROmorphone 1 mg/ml ISec IVP PRN ×8 (00:57→23:32)
--- NOTE | 2017-06-11 01:23 | CON ---
DATE: 06/10/2017 REQUESTING PHYSICIAN: CHIEF COMPLAINT: She presented with dysphagia and worsening dyspnea and has a history of breast CA. HISTORY OF PRESENT ILLNESS: Ms. Cheng, she is a 51-year-old -Italian female with history of breast CA and bilateral mastectomy in 2013. The patient also was treated with radiation and chemotherapy. The patient presents to the emergency room for dysphagia with solid foods and worsening shortness of breath on exertion. She also has noted hoarseness over the last several days as well. The patient states that she is having trouble swallowing solids for 3 days as well as hoarseness in her voice. She has shortness of breath over the last week or so that is increased with exertion. No fever, chills. No nausea or vomiting. No severe chest pain, abdominal pain or diarrhea. The patient does have history of spinal mets and decreased mobility due to extremity weakness. She on CAT scan is noted to have large loculated left pleural effusion and a small right-sided pleural effusion. There is also a right lung nodule and left hilar and mediastinal lymph nodes. It has been recommended by surgery that she has thoracentesis by IR and for evaluation of possible empyema. Note, that with the hoarseness and dysphagia, it is possible that there is left-sided recurrent laryngeal nerve involvement as the etiology of the hoarseness. PAST MEDICAL HISTORY: As above. ALLERGIES: SHE HAS NO KNOWN ALLERGIES. CURRENT MEDICATIONS: Can be evaluated as per the nurse's intake form. SOCIAL HISTORY: Patient has a history of smoking in the past as well as previous marijuana and no EtOH abuse. No drug abuse. FAMILY HISTORY: Noncontributory. REVIEW OF SYSTEMS: CONSTITUTIONAL: All negative. HEENT: Note that she has the hoarseness and the dysphagia. CARDIOVASCULAR: Does have some dyspnea on exertion. RESPIRATORY: There is dyspnea on exertion as well. GASTROINTESTINAL: All negative. MUSCULOSKELETAL: Has weakness in the lower extremities and back pain. GENITALIA: All negative. NEUROPSYCHIATRIC: Note that she has the dysphagia and hoarseness as well as weakness in the lower extremities. ENDOCRINE: All negative. HEMATOLOGIC: All negative. INTEGRITY: All negative. PHYSICAL EXAMINATION: VITAL SIGNS: Note that her temperature is 97.1, her pulse is 74, respirations are 20, and BP is 130/87. SKIN: Warm and dry. HEENT: Head is atraumatic, normocephalic. Eyes are reactive to light. Ears, nose, and throat seem to be within normal limits. NECK: Supple. No JVD. No thyroid enlargement. No lymph nodes. HEART: Has regular rate and rhythm. Normal S1, S2. LUNGS: Revealed decreased breath sounds on the left at the base, no significant rhonchi. ABDOMEN: Soft, decreased bowel sounds. GENITALIA AND RECTAL: Deferred. MUSCULOSKELETAL: No joint deformities. EXTREMITIES: Revealed trace lower extremity edema. NEUROLOGICALLY: She does have the weakness in lower extremities. She does have the hoarseness. LABORATORY DATA: As far as her laboratories are concerned, her white count is 36.6, hemoglobin is 9.1, hematocrit of 31.1 with platelets of 508,000. The patient's PT is 13.1, INR is 1.14, and PTT is 30.1. Venous blood gas reveals a pH of 7.41, pO2 of 100 and 85 and a pCO2 of 37. Note that may be an arterial blood gas. Her sodium is 140, potassium 2.8, chloride 98, CO2 of 24 with a BUN of 4 and creatinine of 0.4, glucose of 84. As far as her CT of the chest, it reveals bilateral left breast implants. The patient has a loculated left pleural effusion with surrounding rim rising the possibility of empyema. She has a small right pleural effusion, left axilla edema and soft tissue densities and left lower chest wall edema extending into the upper abdomen. There is a right lung nodule and there are mediastinal and left hilar lymph nodes and there is compression fractures age indeterminate. IMPRESSION: This patient has a large left loculated pleural effusion, rule out empyema. There is a left-sided hilar as well as mediastinal lymph nodes. The patient has a small right-sided pleural effusion and right lung nodule as well. She has a history of breast CA, bilateral mastectomy and presents with hoarseness, dyspnea on exertion, and dysphagia. Note that with the hoarseness, there may be involvement of the left recurrent laryngeal nerve due to the left hilar and mediastinal lymph nodes involvement. The patient has spinal mets as well with lower extremity weakness. PLAN: We will continue with O2 p.r.n. and bronchodilators if needed. The patient will be scheduled for IR for thoracentesis to evaluate for possible empyema and we will continue with aggressive pulmonary toilet. We will follow closely and treat aggressively along with the other consultants and the primary care doctor. Mino Genao MD
--- NOTE | 2017-06-11 01:56 | CON ---
DATE: 06/10/2017 GASTROENTEROLOGY CONSULTATION REQUESTING PHYSICIAN: Jermaine Major MD REASON FOR CONSULTATION: I have been asked to see this 51-year-old female with history of breast cancer diagnosed back in 2012, who was initially diagnosed with stage II disease and apparently had recurrent cancer in her left axilla in 2013 as well as recently diagnosed as having metastasis to the lumbar spine in 02/2017 who comes to the hospital with chest discomfort, hoarseness, dysphagia to solids and liquids for approximately the last week. HISTORY OF PRESENT ILLNESS: She states that she has been worse for approximately the last 3 days. She also admits to some dyspnea on exertion. The patient had radiation to the left chest and neck and axilla in 12/2016. The patient apparently had a thoracentesis for pleural effusion several months' ago. I have been asked to see this patient for dysphagia. PAST MEDICAL HISTORY: Notable for stage IV breast cancer. PAST SURGICAL HISTORY: Notable for mastectomy and Port-A-Cath placement. SOCIAL HISTORY: She denies cigarette smoking or alcohol use. FAMILY HISTORY: Noncontributory. REVIEW OF SYSTEMS: A 14-point review of systems is notable for oropharyngeal dysphagia, hoarseness in her voice dyspnea on exertion, and chest discomfort. MEDICATIONS AT HOME: Includes Percocet 1 tablet q. 6 hours. PHYSICAL EXAMINATION: GENERAL: A well-developed female lying in bed in no acute distress. VITAL SIGNS: Reveal temperature of 98.2, blood pressure of 113/70, and heart rate of 109. HEENT: Reveals sclerae to be white. Conjunctivae are pink. There is no thrush or lesions in the oral mucosa or throat. Her tongue on protrusion deviates to the left. NECK: Supple. There were no palpable nodes. CHEST: Revealed decreased breath sounds at the bases with some scattered rhonchi. HEART: Exam reveals a regular rate and rhythm. GASTROINTESTINAL: Abdomen is soft and nontender. No mass. EXTREMITIES: Show no edema. LABORATORY DATA: Revealed white blood cell count of 36.6 and hemoglobin of 9.1. Chemistries revealed potassium of 2.8, BUN of 4, and creatinine of 0.4. AST of 46, ALT of 23, and alkaline phosphatase of 170. LDH of 1128. DIAGNOSTIC DATA: A CT scan of the chest reveals a loculated left pleural effusion with surrounding rim with small right pleural effusion with left lower chest wall edema and left axillary edema, mediastinal and left hilar lymph nodes compression fracture of T11 as well as 8 mm to 9 mm nodules in the right mid lung. IMPRESSION: This is a 51-year-old female with: 1. Stage IV breast cancer with left pleural effusion elevated white blood cell count, one must rule out empyema. 2. Oropharyngeal dysphagia possibly related to radiation therapy, her tongue does deviate to the left on protrusion. This may be related to soft tissue swelling in the oropharynx. RECOMMENDATIONS: 1. We will request ENT evaluation for oropharyngeal dysphagia. 2. Continue IV antibiotics for possible empyema. 3. CT-guided thoracentesis of the loculated left pleural effusion. 4. Infectious Diseases evaluation for elevated white blood cell count. Jesus Rodriguez MD
[2017-06-11] MEDS: Meropenem IV 1 gm in NS 50 ML IVPB SCH ×3 (05:28→21:53)
[2017-06-11 07:07] LABS: BASO # 0.04 K/mm3 (0.0-2.0); BASO % 0.1 % (0.0-3.0); GRAN # 35.55 (1.4-6.5); GRAN % 94.2 % (50.0-68.0); LYMPH # 0.4 (1.2-3.4); MEAN CELL VOLUME 84.5 fl (80.0-105.0); MEAN CORPUSCULAR HEMOGLOBIN 24.4 pg (25.0-35.0); MEAN CORPUSCULAR HGB CONC 28.8 g/dl (31.0-37.0); MEAN PLATELET VOLUME 8.9 fl (7.0-11.0); MONO # 1.8 (0.1-0.6); MONO % 4.7 % (1.0-6.0); RBC 3.16 10^6/uL (3.5-6.1); RED CELL DISTRIBUTION WIDTH 24.7 % (11.5-14.5)
[2017-06-11 07:25] LABS: VENOUS BLOOD GAS BASE EXCESS -0.5 mmol/L (0.0-2.0); VENOUS BLOOD GAS PO2 70 mm/Hg (30-55); VENOUS BLOOD PH 7.32 (7.32-7.43)
[2017-06-11 07:32] LABS: ALB/GLOB RATIO 1.1 (1.1-1.8); ALT/SGPT 20 U/L (7-56); AST/SGOT 45 U/L (14-36); BLOOD UREA NITROGEN 6 mg/dL (7-21); CALCIUM 8.1 mg/dL (8.4-10.5); GFR AFRICAN-AMERICAN > 60; GFR NON-AFRICAN AMERICAN > 60
--- NOTE | 2017-06-11 07:59 | CP.PCM.PN ---
Subjective - Date & Time of Evaluation Date of Evaluation: 06/11/17 Time of Evaluation: 07:25 - Subjective Subjective: Thoracic Surgery consult note. Dr. Das Pt seen and examined at bedside. Does report increased pain and states that the pain meds do not last as long. Denies N/V/D. No Abd pain, no new complaints. Objective - Vital Signs/Intake and Output Vital Signs (last 24 hours): Temp Pulse Resp BP Pulse Ox 98.7 F 120 H 19 132/88 98 06/11/17 06:00 06/11/17 06:00 06/11/17 06:00 06/11/17 06:00 06/11/17 06:00 Intake and Output: 06/11/17 06/11/17 06:59 18:59 Intake Total 1320 Output Total 900 Balance 420 - Medications Medications: Current Medications Famotidine (Pepcid) 40 mg PO HS [facility] Last Admin: 06/10/17 21:18 Dose: 40 mg Heparin Sodium (Porcine) (Heparin) 5,000 units SC Q8 [facility] PRN Reason: Protocol Last Admin: 06/11/17 05:26 Dose: 5,000 units Hydromorphone HCl (Dilaudid) 1 mg IVP Q3 PRN PRN Reason: PAIN SEVERE [8-10] Last Admin: 06/11/17 06:50 Dose: 1 mg Sodium Chloride (Sodium Chloride 0.9%) 1,000 mls @ 100 mls/hr IV .Q10H [facility] Last Admin: 06/10/17 22:49 Dose: Not Given Meropenem (Merrem Iv 1 Gm Premix) 50 mls @ 100 mls/hr IVPB Q8 [facility] PRN Reason: Protocol Stop: 06/19/17 14:01 Last Admin: 06/11/17 05:28 Dose: 100 mls/hr Vancomycin HCl (Vancomycin 1gm) 1 gm in 250 mls @ 167 mls/hr IVPB Q12H [facility] PRN Reason: Protocol Stop: 06/19/17 10:46 Last Admin: 06/10/17 22:17 Dose: 167 mls/hr Nystatin (Nystop Topical Powder) 1 gm TOP DAILY [facility] Last Admin: 06/10/17 11:32 Dose: 1 appl - Labs Labs: 06/10/17 07:10 06/11/17 06:30 PT 13.1 SECONDS (9.4-12.5) H 06/10/17 07:10 INR 1.14 (0.93-1.08) H 06/10/17 07:10 APTT 30.1 Seconds (25.1-36.5) 06/10/17 07:10 - Constitutional Appears: No Acute Distress, Older Than Stated Age, Chronically Ill - Head Exam Head Exam: ATRAUMATIC, NORMAL INSPECTION, NORMOCEPHALIC - Eye Exam Eye Exam: EOMI - ENT Exam ENT Exam: Mucous Membranes Moist - Respiratory Exam Respiratory Exam: NORMAL BREATHING PATTERN. absent: Accessory Muscle Use, Respiratory Distress Additional comments: Decreased breath sounds left base. Dullness to percussion on left base. - GI/Abdominal Exam GI & Abdominal Exam: Soft. absent: Distended, Firm, Guarding, Rigid, Tenderness - Extremities Exam Extremities Exam: Normal Inspection. absent: Calf Tenderness - Neurological Exam Neurological Exam: Alert, Awake, Oriented x3 - Psychiatric Exam Psychiatric exam: Flat Affect, Normal Mood - Skin Skin Exam: Dry, Intact, Normal Color, Warm Assessment and Plan - Assessment and Plan (Free Text) Assessment: 51yo F with left sided loculated pleural effusion, progressive dysphagia and dyspasia Plan: - To IR suite for left thoracenthesis today. Send for fluid analysis - Continue Abx as per ID - F/u GI recs - f/u Pulmonology recs - f/u ENT recs - Further surgical recs pending pleural fluid analysis Further recs as per Dr. Pippa Lieberman PGY1 surgery pager: [phone]
[2017-06-11 08:16] LABS: WHITE BLOOD COUNT 37.8 10^3/ul (4.5-11.0)
[2017-06-11 08:17] LABS: HEMOGLOBIN 7.7 g/dL (12.0-16.0)
[2017-06-11] MEDS: Sodium Chloride 0.9% 1,000 ML IV SCH ×2 (08:25→17:30)
--- NOTE | 2017-06-11 08:53 | US ---
PROCEDURE: Left upper extremity venous ultrasound HISTORY: Arm pain and swelling. Evaluate for deep venous thrombosis. PHYSICIAN(S): Brennen Pool MD. FINDINGS: The exam is limited by edematous tissues. The visualized leftinternal jugular vein is sonographically normal and compressible. No evidence of obstruction or thrombus is seen. The visualized segments of the left subclavian vein are patent with normal waveforms. No sonographic evidence of obstruction or thrombosis is seen. The visualized deep venous system of the proximal leftupper extremity is sonographically normal and compressible. IMPRESSION: 1. No sonographic evidence for deep venous thrombosis in the visualized segments of the left upper extremity.
[2017-06-11] MEDS: Nystatin 100,000 Units/gm Topical Pow(15 gm) TOP SCH (09:07)
[2017-06-11] MEDS: Oxycodone/Acetaminophen 5/325 mg Tab PO PRN ×3 (09:21→21:30)
[2017-06-11 11:11] LABS: VENOUS BLOOD GAS BASE EXCESS 0.5 mmol/L (0.0-2.0); VENOUS BLOOD GAS PO2 74 mm/Hg (30-55); VENOUS BLOOD PH 7.38 (7.32-7.43)
[2017-06-11] MEDS: Vancomycin 1gm in NS 250ml 1 GM/250 ML BAG IVPB SCH ×2 (11:42→21:54)
--- NOTE | 2017-06-11 11:49 | CP.PCM.PN ---
Subjective - Date & Time of Evaluation Date of Evaluation: 06/11/17 Time of Evaluation: 07:35 Objective - Vital Signs/Intake and Output Vital Signs (last 24 hours): Temp Pulse Resp BP Pulse Ox 98.7 F 134 H 19 132/88 98 06/11/17 06:00 06/11/17 10:00 06/11/17 06:00 06/11/17 06:00 06/11/17 06:00 Intake and Output: 06/11/17 06/11/17 06:59 18:59 Intake Total 1320 Output Total 900 Balance 420 - Medications Medications: Current Medications Famotidine (Pepcid) 40 mg PO HS [facility] Last Admin: 06/10/17 21:18 Dose: 40 mg Heparin Sodium (Porcine) (Heparin) 5,000 units SC Q8 [facility] PRN Reason: Protocol Last Admin: 06/11/17 05:26 Dose: 5,000 units Hydromorphone HCl (Dilaudid) 1 mg IVP Q3 PRN PRN Reason: PAIN SEVERE [8-10] Last Admin: 06/11/17 10:15 Dose: 1 mg Sodium Chloride (Sodium Chloride 0.9%) 1,000 mls @ 100 mls/hr IV .Q10H [facility] Last Admin: 06/11/17 08:25 Dose: 100 mls/hr Meropenem (Merrem Iv 1 Gm Premix) 50 mls @ 100 mls/hr IVPB Q8 [facility] PRN Reason: Protocol Stop: 06/19/17 14:01 Last Admin: 06/11/17 05:28 Dose: 100 mls/hr Vancomycin HCl (Vancomycin 1gm) 1 gm in 250 mls @ 167 mls/hr IVPB Q12H [facility] PRN Reason: Protocol Stop: 06/19/17 10:46 Last Admin: 06/10/17 22:17 Dose: 167 mls/hr Potassium Chloride (Potassium Chloride 20 Meq/100 Ml) 20 meq in 100 mls @ 50 mls/hr IVPB Q2H [facility] Stop: 06/11/17 13:29 Last Admin: 06/11/17 09:34 Dose: 50 mls/hr Nystatin (Nystop Topical Powder) 1 gm TOP DAILY [facility] Last Admin: 06/11/17 09:07 Dose: 1 appl Oxycodone/Acetaminophen (Percocet 5/325 Mg Tab) 1 tab PO Q6H PRN PRN Reason: Pain, moderate (4-7) Stop: 06/14/17 07:59 Last Admin: 06/11/17 09:21 Dose: 1 tab Polyethylene Glycol (Miralax) 17 gm PO BID [facility] - Labs Labs: 06/11/17 06:30 06/11/17 06:30 PT 13.1 SECONDS (9.4-12.5) H 06/10/17 07:10 INR 1.14 (0.93-1.08) H 06/10/17 07:10 APTT 30.1 Seconds (25.1-36.5) 06/10/17 07:10
[2017-06-11] MEDS: POLYETHYLENE GLYCOL 3350 17 GM/Dose PACKET PO SCH ×2 (12:29→19:00)
--- NOTE | 2017-06-11 13:12 | CP.PCM.PN ---
<Lary Dodd - Last Filed: 06/11/17 13:06> Subjective - Date & Time of Evaluation Date of Evaluation: 06/11/17 Time of Evaluation: 13:06 - Subjective Subjective: Medicine note for Dr. Greer Patient seen and examined at bedside. Patient resting in bed but appears uncomfortable. Patient is complaining of pain in her left arm and low back that is only relieved for 1 hour by her current pain management regimen. She is asking for something to help with breakthrough pain. She also complains of left sided chest pain that only occurs when her left arm pain has been uncontrolled for too long. Patient does not want to undergo anymore testing without adequate pain control. She is asking about lymphadema therapy for her left arm. She denies SOB, cough, palpitations, headaches, abdominal pain, n/v/d/c, and LE pain /swelling. Objective - Vital Signs/Intake and Output Vital Signs (last 24 hours): Temp Pulse Resp BP Pulse Ox 98.2 F 116 H 16 113/74 98 06/11/17 12:00 06/11/17 12:00 06/11/17 12:00 06/11/17 12:00 06/11/17 06:00 Intake and Output: 06/11/17 06/11/17 06:59 18:59 Intake Total 1320 Output Total 900 Balance 420 - Medications Medications: Current Medications Darbepoetin Joe (Aranesp) 100 mcg IVP QWK [facility] Famotidine (Pepcid) 40 mg PO HS [facility] Last Admin: 06/10/17 21:18 Dose: 40 mg Heparin Sodium (Porcine) (Heparin) 5,000 units SC Q8 [facility] PRN Reason: Protocol Last Admin: 06/11/17 05:26 Dose: 5,000 units Hydromorphone HCl (Dilaudid) 1 mg IVP Q3 PRN PRN Reason: PAIN SEVERE [8-10] Last Admin: 06/11/17 10:15 Dose: 1 mg Sodium Chloride (Sodium Chloride 0.9%) 1,000 mls @ 100 mls/hr IV .Q10H [facility] Last Admin: 06/11/17 08:25 Dose: 100 mls/hr Meropenem (Merrem Iv 1 Gm Premix) 50 mls @ 100 mls/hr IVPB Q8 [facility] PRN Reason: Protocol Stop: 06/19/17 14:01 Last Admin: 06/11/17 05:28 Dose: 100 mls/hr Vancomycin HCl (Vancomycin 1gm) 1 gm in 250 mls @ 167 mls/hr IVPB Q12H [facility] PRN Reason: Protocol Stop: 06/19/17 10:46 Last Admin: 06/11/17 11:42 Dose: 167 mls/hr Potassium Chloride (Potassium Chloride 20 Meq/100 Ml) 20 meq in 100 mls @ 50 mls/hr IVPB Q2H [facility] Stop: 06/11/17 13:29 Last Admin: 06/11/17 09:34 Dose: 50 mls/hr Nystatin (Nystop Topical Powder) 1 gm TOP DAILY [facility] Last Admin: 06/11/17 09:07 Dose: 1 appl Oxycodone/Acetaminophen (Percocet 5/325 Mg Tab) 1 tab PO Q6H PRN PRN Reason: Pain, moderate (4-7) Stop: 06/14/17 07:59 Last Admin: 06/11/17 09:21 Dose: 1 tab Polyethylene Glycol (Miralax) 17 gm PO BID [facility] Last Admin: 06/11/17 12:29 Dose: 17 gm - Labs Labs: 06/11/17 06:30 06/11/17 06:30 PT 13.1 SECONDS (9.4-12.5) H 06/10/17 07:10 INR 1.14 (0.93-1.08) H 06/10/17 07:10 APTT 30.1 Seconds (25.1-36.5) 06/10/17 07:10 - Constitutional Appears: Non-toxic, No Acute Distress - Head Exam Head Exam: ATRAUMATIC, NORMAL INSPECTION, NORMOCEPHALIC - Eye Exam Eye Exam: EOMI, Normal appearance, PERRL - ENT Exam ENT Exam: Mucous Membranes Moist - Respiratory Exam Respiratory Exam: Clear to Ausculation Bilateral. absent: Accessory Muscle Use , Rales, Rhonchi, Wheezes, Respiratory Distress Additional comments: breath sounds R>L - Cardiovascular Exam Cardiovascular Exam: Tachycardia, REGULAR RHYTHM, +S1, +S2. absent: Murmur - GI/Abdominal Exam GI & Abdominal Exam: Soft, Normal Bowel Sounds. absent: Distended, Tenderness - Extremities Exam Extremities Exam: Tenderness (LUE ). absent: Calf Tenderness, Pedal Edema Additional comments: Left arm lymphedema - Neurological Exam Neurological Exam: Alert, Awake, Oriented x3 - Psychiatric Exam Psychiatric exam: Normal Affect, Normal Mood - Skin Skin Exam: Dry, Intact, Normal Color, Warm Assessment and Plan - Assessment and Plan (Free Text) Assessment: 51 year old female with PMH of metastatic breast CA to lung and bone who was admitted for evaluation and treatment of chest discomfort and dysphagia/ hoarseness of voice. CT chest shows left sided pleural effusion vs possible empyema. Plan: Dysphagia, Hoarseness of Voice - head CT- No acute findings - soft tissue neck CT- Left clavicular lymphadenopathy. Edema of the left trapezius muscle and surrounding fat. Heterogeneity C7 and T1 vertebrae - consider soft tissue neck and chest CT with IV contrast pending findings of modified barium swallow evaluation and patient's clinical course - Seen by speech * f/u barium swallow study * pureed with thin liquids recommended per speech - GI consulted (Michael), recs appreciated * will do EGD when anemia improved - ENT consulted (Ledy), recs appreciated Empyema vs pleural effusion - tachycadia, leukocytosis, elevated lactic acid - currently afebrile - blood cultures negative x 2, - urine culture negative - procal elevated at 0.80 - IVF NS @ 100 - UA not indicative of urinary infection - CT surgery consulted (Dr. Balderrama), recs Pulm consult, IR to diagnostic tap to confirm if empyema; if positive for empyema will likely require thoracotomy; dysphagia/odonophagia likely requires EGD, defer to GI for this -IR consilted (Dr. Pool), recs appreciated - Infectious disease consulted, recs appreciated * Currently on Vanc/Merrem - Pulm consulted (Mary Anne), recs appreciated Chest Pain - ACS ruled out - EKG reviewed and appreciated - sinus tachycardia, low voltage QRS, HR 129, Qtc 436; repeat EKG today shows sinus tachy to 139 - trops x3 negative - lipid profile reviewed, elevated TG at 270, HDL low at 30 -A1C 5.4 - CT angiography- No pleural embolism, Bilateral breast implants. Loculated left pleural effusion with surrounding rim raising the possibility of empyema. Small right pleural effusion. Left axillary edema and soft tissue density. Left lower chest wall edema extending into the upper abdomen. Right lung nodules. Mediastinal and left hilar lymph nodes. Compression fractures age indeterminate. - f/u 2D echo Anemia - stable - Hgb dropped to 7.7 from 9.1 * will repeat - Pt refusing blood transfusion - f/u iron studies, vit B12, and folate - f/u FOBT - Heme/Onc (Beckie) consulted, recs appreciated * started Aranesp 100 mg weekly - continue to monitor Rash - continue nystatin Stage IV Breast Cancer - hematology/oncology consulted- appreciate recommendations - prognosis is poor, palliative consulted due to lack of patient insight - per pt, was pending another chemotherapy tx on Sunday06/13/17; will likely need to be deferred given possible empyema -pain control: dilaudid and percocet Lymphedema of LUE -secondary to above -compression stocking for LUE -elevation - f/u venous duplex -pain control as above Hypokalemia - repleted but remains low at 2.9, additional potassium ordered - continue to monitor Elevated LFTs - stable - essentially unchanged from admission, continue to monitor - avoid hepatotoxins Dispo: Tele; pending palliative care eval and recs due to lack of insight on severity of disease FEN: Pureed with thin liquids, pending barium swallow study Access: Peripheral IV, R chest port Consults: GI, ENT, Heme-onc, CT surgery, Palliative, IR, Pulm Ppx: Protonix for GI, Heparin for DVT (will transfer to [facility] after potential procedures completed) Patient seen, reviewed, and discussed with attending, Dr. Greer <Christi Greer - Last Filed: 06/11/17 15:02> Objective - Vital Signs/Intake and Output Vital Signs (last 24 hours): Temp Pulse Resp BP Pulse Ox 98.2 F 116 H 16 113/74 98 06/11/17 12:00 06/11/17 12:00 06/11/17 12:00 06/11/17 12:00 06/11/17 06:00 Intake and Output: 06/11/17 06/11/17 06:59 18:59 Intake Total 1320 Output Total 900 Balance 420 - Medications Medications: Current Medications Darbepoetin Joe (Aranesp) 100 mcg IVP QWK [facility] Famotidine (Pepcid) 40 mg PO HS [facility] Last Admin: 06/10/17 21:18 Dose: 40 mg Heparin Sodium (Porcine) (Heparin) 5,000 units SC Q8 [facility] PRN Reason: Protocol Last Admin: 06/11/17 13:21 Dose: 5,000 units Hydromorphone HCl (Dilaudid) 1 mg IVP Q3 PRN PRN Reason: PAIN SEVERE [8-10] Last Admin: 06/11/17 13:21 Dose: 1 mg Sodium Chloride (Sodium Chloride 0.9%) 1,000 mls @ 100 mls/hr IV .Q10H [facility] Last Admin: 06/11/17 08:25 Dose: 100 mls/hr Meropenem (Merrem Iv 1 Gm Premix) 50 mls @ 100 mls/hr IVPB Q8 [facility] PRN Reason: Protocol Stop: 06/19/17 14:01 Last Admin: 06/11/17 13:22 Dose: 100 mls/hr Vancomycin HCl (Vancomycin 1gm) 1 gm in 250 mls @ 167 mls/hr IVPB Q12H [facility] PRN Reason: Protocol Stop: 06/19/17 10:46 Last Admin: 06/11/17 11:42 Dose: 167 mls/hr Nystatin (Nystop Topical Powder) 1 gm TOP DAILY [facility] Last Admin: 06/11/17 09:07 Dose: 1 appl Oxycodone/Acetaminophen (Percocet 5/325 Mg Tab) 1 tab PO Q6H PRN PRN Reason: Pain, moderate (4-7) Stop: 06/14/17 07:59 Last Admin: 06/11/17 09:21 Dose: 1 tab Polyethylene Glycol (Miralax) 17 gm PO BID [facility] Last Admin: 06/11/17 12:29 Dose: 17 gm - Labs Labs: 06/11/17 14:14 06/11/17 14:14 PT 13.1 SECONDS (9.4-12.5) H 06/10/17 07:10 INR 1.14 (0.93-1.08) H 06/10/17 07:10 APTT 30.1 Seconds (25.1-36.5) 06/10/17 07:10 Attending/Attestation - Attestation I have personally seen and examined this patient.: Yes I have fully participated in the care of the patient.: Yes I have reviewed all pertinent clinical information, including history, physical exam and plan: Yes Notes (Text): 06/11/17 14:56 51 year old female with past medical history of metastatic breast cancer who presented with dysphagia and chest discomfort. CT chest was obtained which showed left sided pleural effusion vs possible empyema. GI evaluation was appreciated; recommended barium stud and possible EGD. ENT and pulmonary evaluation were also requested along with IR for possible thoracocentesis. Continue with iv antiobiotics as per ID. Will follow up with pulmonary recommendations. Hematology/oncology evaluation was requested for breast cancer, anemia and leukocytosis. Anemia workup is ordered along with aranesp as per pizza maker. Patient refused blood transfusion. Will replete and repeat potassium. Continue to monitor LFTs closely. Christi Greer MD Hospitalist.
[2017-06-11] MEDS ORDERED: Darbepoetin Alfa 100 mcg/ml Inj IVP SCH (13:47)
[2017-06-11 14:18] LABS: BASO # 0.06 K/mm3 (0.0-2.0); BASO % 0.2 % (0.0-3.0); GRAN # 35.98 (1.4-6.5); GRAN % 94.6 % (50.0-68.0); LYMPH # 0.5 (1.2-3.4); LYMPH % 1.3 % (22.0-35.0); MEAN CELL VOLUME 84.4 fl (80.0-105.0); MEAN CORPUSCULAR HEMOGLOBIN 24.7 pg (25.0-35.0); MEAN CORPUSCULAR HGB CONC 29.3 g/dl (31.0-37.0); MEAN PLATELET VOLUME 8.6 fl (7.0-11.0); MONO # 1.5 (0.1-0.6); MONO % 3.9 % (1.0-6.0); RBC 3.2 10^6/uL (3.5-6.1); RED CELL DISTRIBUTION WIDTH 24.4 % (11.5-14.5)
[2017-06-11 14:26] LABS: IRON 51 ug/dL (45-180); MAGNESIUM 1.9 mg/dL (1.7-2.2)
[2017-06-11 14:32] LABS: HEMOGLOBIN 7.9 g/dL (12.0-16.0)
[2017-06-11 14:35] LABS: % IRON SATURATION 25 % (20-55); TOTAL IRON BINDING CAPACITY 206 ug/dL (265-497)
[2017-06-11 15:31] LABS: VENOUS BLOOD GAS BASE EXCESS 1.2 mmol/L (0.0-2.0); VENOUS BLOOD GAS PO2 95 mm/Hg (30-55); VENOUS BLOOD PH 7.39 (7.32-7.43)
--- NOTE | 2017-06-11 15:52 | PN ---
DATE: 06/11/2017 SUBJECTIVE: The patient is lying in bed. She complains of pain throughout her torso and body. She has no appetite due to her pain. She has not had a bowel movement in several days. She denies any fevers, chills, or shortness of breath. MEDICATIONS: Currently, include Dilaudid 1 mg IV q. 3 hours p.r.n. pain, meropenem 1 g IV q. 8 hours, Pepcid 40 mg at bedtime, oxycodone 5/325 one tab q. 6 hours p.r.n. pain, potassium chloride 20 mEq IV, and vancomycin 1 g IV q. 12 hours. PHYSICAL EXAMINATION: VITAL SIGNS: Reveal temperature of 98.7, blood pressure 132/88, heart rate of 120. HEENT: Reveals sclerae to be white. Conjunctivae pink. Her tongue deviates to the left on extrusion. NECK: Supple. CHEST: Reveals decreased breath sounds in the left base. HEART: Reveals a tachycardia. ABDOMEN: Soft, nontender. EXTREMITIES: Show 2+ edema of her left arm to the left shoulder. There is no pedal edema. LABORATORY DATA: Reveal white blood cell count 37.8, hemoglobin 7.7. Chemistries reveal potassium 2.9, AST 45, alkaline phosphatase of 142. IMPRESSION: This is a 51-year-old female with a history of breast cancer, now with metastasis with dysphagia, elevated white blood cell count, loculated pleural effusion on CAT scan, rule out empyema, and swelling of her left arm, one must rule out deep vein thrombosis in the left subclavian vein or left arm. RECOMMENDATIONS: 1. ENT evaluation for oropharyngeal dysphagia. 2. I will start the patient on MiraLax 17 g twice a day for constipation. 3. We will request a left upper extremity venous and arterial duplex scan to rule out DVT. Her prognosis is unfortunately poor. Jesus Rodriguez MD MTDMakenzie
[2017-06-11] MEDS: Darbepoetin Alfa 100 mcg/ml Inj IVP SCH (17:17)
[2017-06-11 18:41] LABS: BODY FLUID TYPE PLEURAL
--- NOTE | 2017-06-11 18:41 | CP.PCM.PN ---
Subjective - Date & Time of Evaluation Date of Evaluation: 06/11/17 Time of Evaluation: 11:20 - Subjective Subjective: Still with left arm swelling but a little better, no fevers overnight, still having problems with swallowing. Objective - Vital Signs/Intake and Output Vital Signs (last 24 hours): Temp Pulse Resp BP Pulse Ox 98.2 F 125 H 16 113/74 98 06/11/17 12:00 06/11/17 14:00 06/11/17 12:00 06/11/17 12:00 06/11/17 06:00 Intake and Output: 06/11/17 06/11/17 06:59 18:59 Intake Total 1320 Output Total 900 Balance 420 - Medications Medications: Current Medications Darbepoetin Joe (Aranesp) 100 mcg IVP MON [facility] Last Admin: 06/11/17 17:17 Dose: 100 mcg Famotidine (Pepcid) 40 mg PO HS [facility] Last Admin: 06/10/17 21:18 Dose: 40 mg Heparin Sodium (Porcine) (Heparin) 5,000 units SC Q8 [facility] PRN Reason: Protocol Last Admin: 06/11/17 13:21 Dose: 5,000 units Hydromorphone HCl (Dilaudid) 1 mg IVP Q3 PRN PRN Reason: PAIN SEVERE [8-10] Last Admin: 06/11/17 17:13 Dose: 1 mg Sodium Chloride (Sodium Chloride 0.9%) 1,000 mls @ 100 mls/hr IV .Q10H [facility] Last Admin: 06/11/17 08:25 Dose: 100 mls/hr Meropenem (Merrem Iv 1 Gm Premix) 50 mls @ 100 mls/hr IVPB Q8 [facility] PRN Reason: Protocol Stop: 06/19/17 14:01 Last Admin: 06/11/17 13:22 Dose: 100 mls/hr Vancomycin HCl (Vancomycin 1gm) 1 gm in 250 mls @ 167 mls/hr IVPB Q12H [facility] PRN Reason: Protocol Stop: 06/19/17 10:46 Last Admin: 06/11/17 11:42 Dose: 167 mls/hr Nystatin (Nystop Topical Powder) 1 gm TOP DAILY [facility] Last Admin: 06/11/17 09:07 Dose: 1 appl Oxycodone/Acetaminophen (Percocet 5/325 Mg Tab) 1 tab PO Q6H PRN PRN Reason: Pain, moderate (4-7) Stop: 06/14/17 07:59 Last Admin: 06/11/17 15:25 Dose: 1 tab Polyethylene Glycol (Miralax) 17 gm PO BID [facility] Last Admin: 06/11/17 12:29 Dose: 17 gm - Labs Labs: 06/11/17 14:14 06/11/17 14:14 PT 13.1 SECONDS (9.4-12.5) H 06/10/17 07:10 INR 1.14 (0.93-1.08) H 06/10/17 07:10 APTT 30.1 Seconds (25.1-36.5) 06/10/17 07:10 - Constitutional Appears: Chronically Ill - Head Exam Head Exam: NORMAL INSPECTION - Neck Exam Neck Exam: absent: Meningismus - Respiratory Exam Respiratory Exam: Decreased Breath Sounds - Cardiovascular Exam Cardiovascular Exam: +S1, +S2 - GI/Abdominal Exam GI & Abdominal Exam: Soft. absent: Tenderness - Extremities Exam Additional comments: left arm with sleeve in place, with swelling Assessment and Plan - Assessment and Plan (Free Text) Plan: Assessment Sepsis due to left arm cellulitis in this patient with chronic lymphedema breasst cancer stage 4 S/P bilateral mastectomy S/P chest port placement DM HTN Plan Blood cx are negative x 1 day - continue Vancomycin and Merrem for now will continue to monitor clinical response overall prognosis is poor
[2017-06-11] MEDS ORDERED: Albuterol-Ipratrop 3 mg / 0.5 (3 ml) UD IH PRN (20:43)
[2017-06-11 20:46] LABS: BF GROSS APPEARANCE CLOUDY (CLEAR)
[2017-06-11 20:47] LABS: BODY FLUID MONO/MACROPHAGE 0 % (0-0); BODY FLUID TOTAL COUNT 100 (0-0)
[2017-06-11 21:38] LABS: FOLATE 5.4 ng/mL
--- NOTE | 2017-06-12 01:34 | CON ---
DATE: 06/11/2017 REASON FOR CONSULTATION: Dysphagia. HISTORY OF PRESENT ILLNESS: The patient is a 51-year-old female with a history of breast cancer. She was initially treated for her breast cancer few years ago, and subsequently had sudden development of supraclavicular lymphadenopathy. She was then treated with Proton radiation therapy to this area which completed in 12/2016. She continues to suffer from lymphedema related to her breast cancer diagnosis. She presented to the emergency room with complaints of chest tightness as well as dysphagia and hoarseness that has developed over the past 10 days or so. She is currently undergoing chemotherapy. The last session was about two weeks ago. Upon admission, she underwent a CT of the neck which did not demonstrate any tumor burden within the neck. It did show some left supraclavicular lymphadenopathy as well as some edema to the left trapezius muscle and . This CAT scan of note was reviewed with the radiologist. Upon our evaluation, the patient notes that she has had some intermittent dysphonia for the past 10 days. She feels like her voice quality has changed and has become slightly breathy in quality. She also notes dysphagia more to liquids and to solids and notes coughing with swallowing liquids. This has also been present for the about the past 10 days. She also notes that her tongue motion has changed. This has been present for about one month. Otherwise, she denies other odynophagia or pain in the throat or odynophonia or other ear, nose, and throat complaints at this time. PAST MEDICAL HISTORY: As above. PAST SURGICAL HISTORY: Significant for mastectomy. ALLERGIES: NO KNOWN DRUG ALLERGIES. PHYSICAL EXAMINATION: VITAL SIGNS: Blood pressure 113/74, heart rate 116, temperature 98.2, respiratory rate 16, saturating 98% on room air. GENERAL: The patient is awake and alert. She is oriented x3. Slightly breathy quality of voice but able to be understood easily. Able to speak in full sentences and answers questions appropriately. HEENT: Head: Normocephalic, atraumatic. Ears: External auricles without mass or lesions. Nose: Nares are patent bilaterally. No purulent discharge noted. Oral cavity/Oropharynx: Moist mucous membranes. Upon extrusion of the tongue, there is left deviation of the tip of the tongue and marked atrophy of the left hand side of the tongue. On palpation, no masses or lesions are felt at the base of tongue or along the glossotonsillar sulcus bilaterally. There is symmetric palate elevation. NECK: No tenderness. Trachea midline. There is a small palpable node in level 5 on the left hand side as well as some non discrete fullness within the left supraclavicular area. Left trapezius is enlarged and contagious with lymphedema extending down the entirety of her left upper extremity, which has a compression dressing on it. ASSESSMENT: 1. Flexible fiberoptic laryngoscopy. 2. Flexible fiberoptic scope was then inserted into the right naris. No mass or lesions were seen in the middle meatus. The scope was then passed posteriorly to the nasopharynx. No masses or lesions were seen. The scope was then flexed down and entered the oropharynx. There was noted to be some pooling of secretions which were cleared. Base of tongue was noted to be normal in appearance without obvious mass or lesion of the epiglottis, questionable both lingular and laryngeal surfaces. Arytenoids were normal in appearance. AE folds normal in appearance. True vocal cords were without masses or lesions. However, the left true cord was slightly medialized and did not move with phonation or respiration. It did have some slightly paretic motion and was not completely paralyzed however had very minimal motion; and there was some glottic gapping posteriorly with phonation. The right cord had full mobility. Piriform sinuses were without obvious masses or lesions. At this point, the scope was withdrawn. The patient tolerated the procedure well with no complications. IMAGING: CT of the neck as described above. It was reviewed with the radiologist who does not see any obvious tumor burden within the neck to explain the patient's physical exam finding although of note the study was performed without contrast. The patient's most recent PET CT was back in 2016. 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 The above findings would suggest patient's current symptoms of dysphonia and dysphagia. We would recommend a barium swallow to evaluate the patient's swallowing status. We would recommend also evaluation by the speech and swallow team and patient may need aspiration precautions pending these findings. The patient may also benefit from a PET CT scan to further delineate and rule out any tumor causing these nerve dysfunction, would also recommend that patient follow up as an outpatient with the ear, nose, and throat team. Should she not improve, she may benefit from an injection laryngoplasty to improve her voice and swallowing function. This was discussed extensively with the patient and her family at the bedside and discussed with the patient's nurse as well. Thank you for allowing us to participate in this patient's care. Marcelo Abel DO
[2017-06-12] MEDS: HYDROmorphone 1 mg/ml ISec IVP PRN ×3 (02:43→08:50)
--- NOTE | 2017-06-12 03:32 | CON ---
DATE: 06/11/2017 PULMONARY CONSULTATION REFERRING PHYSICIAN: Dr. Greer. REASON FOR CONSULT: Shortness of breath, cough, left pleural effusion. HISTORY OF PRESENT ILLNESS: This is a 51-year-old female with stage IV breast cancer with left upper extremity lymphedema, originally admitted to the hospital with dysphagia and hoarseness. She is on chemotherapy. The patient sees Dr. Butts as an outpatient, found to have a large pleural effusion on the left side. She had a history of pleural effusion before and had a volume thoracentesis, but reoccurred, presently scheduled to go for thoracentesis today. No hemoptysis. No hematochezia. No hematuria. No diarrhea reported. PAST MEDICAL HISTORY: Metastatic breast cancer, on chemotherapy. Otherwise, no cardiopulmonary disease before this. FAMILY HISTORY: Positive for breast cancer, hypertension, and diabetes. SOCIAL HISTORY: No history of smoking or alcohol use. In the past, she uses marijuana. ALLERGIES: NONE KNOWN. MEDICATIONS: She is on Aranesp 100 mcg weekly, Dilaudid 1 mg q. 3 hours p.r.n., heparin 5000 units subcu q. 8 hours, meropenem 1 gm IV q. 8 hours, MiraLax 17 gm p.o. twice a day, Pepcid 40 mg at bedtime, Percocet 5/325 one tab q. 6 hours p.r.n., IV fluids normal saline at 100 mL per hour, vancomycin 1 gm q. 12 hours. REVIEW OF SYSTEMS: No headache. Not much rhinitis. Had some issue with swallowing discomfort. No nausea or vomiting. No diarrhea. No leg pain or swelling. She has left upper extremity lymphedema. PHYSICAL EXAMINATION: GENERAL: Lying in bed, in no acute distress. VITAL SIGNS: Temperature is 98, heart rate is 160, respiratory rate is 16, blood pressure 113/74, and pulse oximetry is 97% on nasal cannula. HEENT: Moist mucous membranes. Crowded airway. NECK: Supple. No JVD. LUNGS: Have two-third of decreased breath sounds on the left side, has bilateral mastectomy. HEART: S1 and S2. ABDOMEN: Soft, nontender, no organomegaly. EXTREMITIES: No edema of the lower extremity. Left upper extremity has lymphedema. NEUROLOGICAL: Awake, alert, follows simple commands. LABORATORY DATA: Shows hemoglobin 7.9, .hematocrit 27.7, WBC 38,000, platelet count is 403. VBG shows pH of 7.39, pCO2 of 44, O2 of 95, potassium 3.3, iron is 51, ferritin is pending. Sodium 143, chloride 102, bicarbonate 25, BUN 6, creatinine 0.4, glucose 77, calcium 8.1, AST 45, ALT 20, alkaline phosphatase is 142, albumin is 3.0, procalcitonin is 0.80. Urinalysis shows wbc negative, rbc negative. Microbiology, blood culture and urine culture, there is no growth. Had a rib x-ray done yesterday, which shows large loculated effusion along the left lateral chest wall with progressive atelectasis of the lung and small left pleural effusion. Also, the left shoulder x-ray done yesterday which shows no acute fracture or bone destruction. CAT scan of the head done, which shows no acute finding. CT scan of the chest done, which shows bilateral breast implants, loculated left pleural effusion with surrounding rim raising the possibility of empyema, small right pleural effusion, left axillary edema and soft tissue densities, left lower chest wall edema extending into the upper abdomen, right lung nodule, mediastinal and left hilar lymph node, compression of fracture, age indeterminate. IMPRESSION AND PLAN: Metastatic breast cancer, recurrent pleural effusion with shortness of breath, odynophagia, being followed by Infectious Disease, Gastroenterology, scheduled for volume thoracentesis. This is a reoccurring pleural effusion. If this is not empyema, we will consider PleurX catheter or pleurodesis. I spoke to the patient about it. Continue bronchodilator, keep head at 45 degrees, gastric prophylaxis and deep venous thrombosis prophylaxis. Thank you and we will follow with you. Jermaine North MD
[2017-06-12] MEDS: Meropenem IV 1 gm in NS 50 ML IVPB SCH ×3 (05:46→21:18)
[2017-06-12 06:19] LABS: BASO # 0.05 K/mm3 (0.0-2.0); BASO % 0.2 % (0.0-3.0); GRAN # 30.08 (1.4-6.5); LYMPH # 0.7 (1.2-3.4); LYMPH % 2.2 % (22.0-35.0); MEAN CELL VOLUME 84.8 fl (80.0-105.0); MEAN CORPUSCULAR HEMOGLOBIN 24.5 pg (25.0-35.0); MEAN CORPUSCULAR HGB CONC 28.9 g/dl (31.0-37.0); MEAN PLATELET VOLUME 8.7 fl (7.0-11.0); MONO # 1.2 (0.1-0.6); MONO % 3.6 % (1.0-6.0); RBC 3.22 10^6/uL (3.5-6.1); RED CELL DISTRIBUTION WIDTH 24.7 % (11.5-14.5)
[2017-06-12 06:25] LABS: HEMOGLOBIN 7.9 g/dL (12.0-16.0)
[2017-06-12 06:55] LABS: ALB/GLOB RATIO 1.1 (1.1-1.8); ALBUMIN 2.9 g/dL (3.0-4.8); ALT/SGPT 24 U/L (7-56); AST/SGOT 44 U/L (14-36); BLOOD UREA NITROGEN 6 mg/dL (7-21); CALCIUM 7.9 mg/dL (8.4-10.5); GFR AFRICAN-AMERICAN > 60; GFR NON-AFRICAN AMERICAN > 60
[2017-06-12 07:09] LABS: VENOUS BLOOD GAS BASE EXCESS 1.5 mmol/L (0.0-2.0); VENOUS BLOOD GAS PO2 101 mm/Hg (30-55); VENOUS BLOOD PH 7.38 (7.32-7.43)
[2017-06-12] MEDS: Oxycodone/Acetaminophen 5/325 mg Tab PO PRN ×2 (07:50→18:08)
--- NOTE | 2017-06-12 09:10 | RAD ---
HISTORY: S/P Thoracentesis-left COMPARISON: 06/09/2017 FINDINGS: LUNGS: Persistent almost complete opacification of left bethany thorax. PLEURA: Left pleural effusion. Decreased from prior. No pneumothorax. CARDIOVASCULAR: Right central venous infusion port. No cardiomegaly. OSSEOUS STRUCTURES: No significant abnormalities. VISUALIZED UPPER ABDOMEN: Normal. OTHER FINDINGS: None. IMPRESSION: Decreased left pleural effusion.
[2017-06-12] MEDS: POLYETHYLENE GLYCOL 3350 17 GM/Dose PACKET PO SCH ×2 (09:22→17:12)
[2017-06-12] MEDS: Nystatin 100,000 Units/gm Topical Pow(15 gm) TOP SCH (09:22)
--- NOTE | 2017-06-12 09:52 | US ---
PROCEDURE: Ultrasound guided left thoracentesis. CLINICAL HISTORY: Metastatic breast CA. Complex left pleural effusion with shortness of breath. Needs thoracentesis. PHYSICIAN(S): Brennen Pool MD. TECHNIQUE: The relative risks and indications of the procedure were explained to the patient and consent obtained. The patient was placed in a sitting position on the stretcher and sonography of the right chest performed. This revealed a small to moderate complex leftpleural effusion. A left posterolateral intercostal approach was selected and the area prepped and draped usual sterile fashion. 1% Xylocaine was used to anesthetize the skin and soft tissues. A 7 [place] thoracentesis catheter was trocared into the left pleural cavity and 3 and 50 cc of thin chocolate fluid aspirated. The appropriate labs were sent IMPRESSION: 1. Ultrasound guided left thoracentesis. 350 cc of fluid were removed
[2017-06-12] MEDS: Vancomycin 1gm in NS 250ml 1 GM/250 ML BAG IVPB SCH ×2 (11:39→23:07)
[2017-06-12] MEDS ORDERED: HYDROmorphone 2 mg/ml ISec IVP PRN (11:54)
[2017-06-12] MEDS: HYDROmorphone 2 mg/ml ISec IVP PRN ×5 (12:10→23:07)
--- NOTE | 2017-06-12 12:49 | CARD ---
APPROVED REPORT EXAM: Two-dimensional and M-mode echocardiogram with Doppler and color Doppler. INDICATION RVSP/SOB/LV FX 2D DIMENSIONS Left Atrium (2D)2.6 (1.6-4.0cm)IVSd1.0 (0.7-1.1cm) LVDd3.6 (3.9-5.9cm)PWd1.0 (0.7-1.1cm) LVDs2.5 (2.5-4.0cm)FS (%) 29.3 % LVEF (%)57.2 (>50%) M-Mode DIMENSIONS Aortic Root2.50 (2.2-3.7cm)Aortic Cusp Exc.2.00 (1.5-2.0cm) Aortic Valve AoV Peak Afudzjjw885.0cm/Anita Peak GR.6mmHg Mitral Valve MV E Kax[place]78.8cm/sMV A Odsvlmqi07.1cm/sE/A ratio0.6 TDI E/Lateral E'0.0E/Medial E'0.0 Tricuspid Valve TR Peak [id number]/sRAP [id number] Peak Gr.27mmHg [id number] LEFT VENTRICLE The left ventricle is normal size. There is normal left ventricular wall thickness. The left ventricular function is normal.EF-55-60% There is normal LV segmental wall motion. Transmitral Doppler flow pattern is Grade III-reversible restrictive diastolic dysfunction. No left ventricle thrombus noted on this study. There is no ventricular septal defect visualized. There is no left ventricular aneurysm. There is no mass noted in the left ventricle. RIGHT VENTRICLE The right ventricle is normal size. There is normal right ventricular wall thickness. The right ventricular systolic function is normal. ATRIA The left atrium size is normal. The right atrium size is normal. The interatrial septum is intact with no evidence for an atrial septal defect. AORTIC VALVE The aortic valve is not well visualized. There is trace aortic regurgitation. There is no aortic valvular stenosis. There is no aortic valvular vegetation. MITRAL VALVE The mitral valve is thickened but opens well. Mitral regurgitation is trace. There is no mitral valve stenosis. There is no evidence of mitral valve prolapse. TRICUSPID VALVE The tricuspid valve leaflets are thickened , but open well. There is trace to mild tricuspid regurgitation.RVSDP-27 mm of Hg. There is no tricuspid valve stenosis. There is no tricuspid valve prolapse or vegetation. PULMONIC VALVE The pulmonary valve is normal in structure. There is trace pulmonic valvular regurgitation. There is no pulmonic valvular stenosis. GREAT VESSELS The aortic root is normal in size. The ascending aorta is normal in size. The pulmonary artery is normal. The IVC is normal in size and collapses >50% with inspiration. PERICARDIAL EFFUSION There is no pleural effusion. There is no pericardial effusion. <Conclusion> Normal chamber Size. EF-55-60% Trace MR/AR/PI Trace to mild TR. RVSP-27 mmofHg. No vegetation Poor Sonic window, Pt has breast Implant. No Obvious vegetation noted.
--- NOTE | 2017-06-12 12:51 | CP.PCM.PN ---
Subjective - Date & Time of Evaluation Date of Evaluation: 06/12/17 Time of Evaluation: 07:25 - Subjective Subjective: Thoracic surgery Progress note. Dr. Das Pt seen and examined at bedside. No acute events overnight. s/p thoracenthesis by IR yesterday with 300cc or serosang output, pending fluid analysis. Patient report mild improvement in dyspnea, pain well controlled. No N/V/D. No Abd pain. Objective - Vital Signs/Intake and Output Vital Signs (last 24 hours): Temp Pulse Resp BP Pulse Ox 98.1 F 119 H 20 130/85 96 06/12/17 06:00 06/12/17 06:00 06/12/17 06:00 06/12/17 06:00 06/12/17 06:00 Intake and Output: 06/12/17 06/12/17 06:59 18:59 Intake Total 2350 360 Balance 2350 360 - Medications Medications: Current Medications Albuterol/Ipratropium (Duoneb 3 Mg/0.5 Mg (3 Ml) Ud) 3 ml IH [id number] PRN PRN Reason: Shortness of Breath Darbepoetin Joe (Aranesp) 100 mcg IVP MON [facility] Last Admin: 06/11/17 17:17 Dose: 100 mcg Famotidine (Pepcid) 40 mg PO HS [facility] Last Admin: 06/11/17 21:53 Dose: 40 mg Heparin Sodium (Porcine) (Heparin) 5,000 units SC Q8 [facility] PRN Reason: Protocol Last Admin: 06/12/17 05:40 Dose: 5,000 units Hydromorphone HCl (Dilaudid) 1 mg IVP Q3H PRN PRN Reason: Pain, severe (8-10) Last Admin: 06/12/17 12:10 Dose: 1 mg Sodium Chloride (Sodium Chloride 0.9%) 1,000 mls @ 100 mls/hr IV .Q10H [facility] Last Admin: 06/11/17 17:30 Dose: Not Given Meropenem (Merrem Iv 1 Gm Premix) 50 mls @ 100 mls/hr IVPB Q8 [facility] PRN Reason: Protocol Stop: 06/19/17 14:01 Last Admin: 06/12/17 05:46 Dose: 100 mls/hr Vancomycin HCl (Vancomycin 1gm) 1 gm in 250 mls @ 167 mls/hr IVPB Q12H [facility] PRN Reason: Protocol Stop: 06/19/17 10:46 Last Admin: 06/12/17 11:39 Dose: 167 mls/hr Potassium Chloride (Potassium Chloride 20 Meq/100 Ml) 20 meq in 100 mls @ 50 mls/hr IVPB Q2H [facility] Stop: 06/12/17 16:29 Nystatin (Nystop Topical Powder) 1 gm TOP DAILY [facility] Last Admin: 06/12/17 09:22 Dose: 1 appl Oxycodone/Acetaminophen (Percocet 5/325 Mg Tab) 1 tab PO Q6H PRN PRN Reason: Pain, moderate (4-7) Stop: 06/14/17 07:59 Last Admin: 06/12/17 07:50 Dose: 1 tab Polyethylene Glycol (Miralax) 17 gm PO BID [facility] Last Admin: 06/12/17 09:22 Dose: 17 gm - Labs Labs: 06/12/17 06:14 06/12/17 06:14 PT 13.1 SECONDS (9.4-12.5) H 06/10/17 07:10 INR 1.14 (0.93-1.08) H 06/10/17 07:10 APTT 30.1 Seconds (25.1-36.5) 06/10/17 07:10 - Constitutional Appears: Non-toxic - Head Exam Head Exam: ATRAUMATIC, NORMAL INSPECTION, NORMOCEPHALIC - Eye Exam Eye Exam: EOMI, Normal appearance - ENT Exam ENT Exam: Mucous Membranes Moist - Respiratory Exam Respiratory Exam: NORMAL BREATHING PATTERN. absent: Accessory Muscle Use, Respiratory Distress - Cardiovascular Exam Cardiovascular Exam: absent: JVD - GI/Abdominal Exam GI & Abdominal Exam: Soft. absent: Distended, Firm, Guarding, Tenderness - Extremities Exam Extremities Exam: Normal Inspection. absent: Calf Tenderness - Neurological Exam Neurological Exam: Alert, Awake, Oriented x3 - Skin Skin Exam: Dry, Intact, Normal Color, Warm Assessment and Plan - Assessment and Plan (Free Text) Assessment: 51yo F with left sided loculated pleural effusion, progressive dysphagia and dyspasia. S/p thoracenthesis on 06/12 by IR. Plan: - f/u Thoracenthesis fluid analysis - Continue Abx as per ID - F/u GI recs - f/u Pulmonology recs - f/u ENT recs - No plans for acute surgical intervention at this time Further recs as per Dr. Pippa Lieberman PGY1 surgery pager: [phone]
[2017-06-12] MEDS: Sodium Chloride 0.9% 1,000 ML IV SCH ×2 (13:30→23:13)
[2017-06-12] MEDS ORDERED: Barium Sulfate for Susp 96% w/w 176g Bottle PR ONE (15:13)
--- NOTE | 2017-06-12 16:00 | US ---
PROCEDURE: Upper extremity wrist-brachial index and PVR exam HISTORY: Peripheral vascular disease. Pain. Previous smoker. PHYSICIAN(S): Brennen Pool MD. FINDINGS: The resting WBI's are normal: right, 1.01and left, 1.04. No significant segmental gradients are seen. Upper arm PVR waveforms are normal and symmetric. The right forearm and wrist PVR waveforms are normal. The left forearm and wrist PVR waveforms are moderately blunted. This could represent occlusive disease in the left brachial artery or trifurcation. However, without a pressure drop its clinical significance is uncertain. IMPRESSION: 1. Normal wrist-brachial indices at rest 2. The left forearm and wrist PVR waveforms are blunted compared to the right. This could represent occlusive disease the left brachial level or trifurcation. Correlation with the pulse exam is recommended
[2017-06-12] MEDS ORDERED: HYDROmorphone 2 mg/ml ISec IM PRN (18:39)
--- NOTE | 2017-06-12 18:55 | PN ---
DATE: 06/12/2017 SUBJECTIVE: Patient continues to feel weak. She has no appetite. She underwent a thoracentesis yesterday by Interventional Radiology, which revealed presence of a dark chocolate-colored fluid. Venous duplex scan of left upper extremity was negative for DVT. MEDICATIONS: Her medications currently include Aranesp 100 mcg weekly, Dilaudid 1 mg IV q. 3 hours as needed, DuoNeb 3 mL inhaled q. 6 hours as needed for shortness of breath, heparin 5000 units subcu q. 8 hours, meropenem 1 g IV q. 8 hours, polyethylene glycol 17 g b.i.d., Pepcid 40 mg at bedtime, Percocet 5/325 one q. 6 hours as needed for pain, potassium chloride 20 mEq IV piggyback, and vancomycin 1 g IV q. 12. PHYSICAL EXAMINATION: VITAL SIGNS: Reveal temperature of 98.1, blood pressure 130/85, and heart rate 119. HEENT: Reveals sclerae to be white. Conjunctivae pale. NECK: Supple. CHEST: Reveals distant breath sounds. HEART: Exam reveals tachycardia. ABDOMEN: Soft and nontender. EXTREMITIES: Reveal 2+ pitting edema of the left arm to the shoulder. LABORATORY DATA: Revealed white blood cell count 32,000, hemoglobin 7.9, and platelet count 443,000. Pleural fluid showed 11 wbc's per high-power field with a total cell count of 100, 80% neutrophils. It was dark in color. Pleural pH was 10. Chemistries revealed potassium of 3.2. AST 44, ALT 24, and alkaline phosphatase of 131. 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 There were secretions in the hypopharynx, which were suctioned. IMPRESSION: 1. Breast cancer with metastasis. 2. Oropharyngeal dysphagia. 3. Loculated left pleural effusion, rule out empyema. 4. Left upper extremity edema secondary to lymphedema. RECOMMENDATIONS: 1. We will request a modified video barium swallow. 2. Continue IV antibiotics and await cultures of pleural fluid for possible empyema. 3. I have asked the patient to wear a compression sleeve on her left arm for her lymphedema. 4. Continue Pepcid at bedtime. Her long-term prognosis unfortunately is extremely poor. 5. We will request that the patient be placed on a pureed diet. Jesus Rodriguez MD [facility] # [id number]
--- NOTE | 2017-06-12 19:04 | CP.PCM.PN ---
<Lary Dodd - Last Filed: 06/12/17 20:18> Subjective - Date & Time of Evaluation Date of Evaluation: 06/12/17 Time of Evaluation: 19:01 - Subjective Subjective: Patient seen and examined at bedside. Patient resting in bed with no new complaints at this time. Patient still complaining of left arm, chest, and low back pain. Patient still having difficulty swallowing. She denies SOB, abdominal pain, n/v/d/c. Objective - Vital Signs/Intake and Output Vital Signs (last 24 hours): Temp Pulse Resp BP Pulse Ox 98.1 F 119 H 20 130/85 96 06/12/17 06:00 06/12/17 06:00 06/12/17 06:00 06/12/17 06:00 06/12/17 06:00 Intake and Output: 06/12/17 06/13/17 18:59 06:59 Intake Total 360 Balance 360 - Medications Medications: Current Medications Albuterol/Ipratropium (Duoneb 3 Mg/0.5 Mg (3 Ml) Ud) 3 ml IH [id number] PRN PRN Reason: Shortness of Breath Darbepoetin Joe (Aranesp) 100 mcg IVP MON [facility] Last Admin: 06/11/17 17:17 Dose: 100 mcg Famotidine (Pepcid) 40 mg PO HS [facility] Last Admin: 06/11/17 21:53 Dose: 40 mg Heparin Sodium (Porcine) (Heparin) 5,000 units SC Q8 [facility] PRN Reason: Protocol Last Admin: 06/12/17 13:21 Dose: 5,000 units Hydromorphone HCl (Dilaudid) 2 mg IM Q2H PRN PRN Reason: Pain, moderate (4-7) Sodium Chloride (Sodium Chloride 0.9%) 1,000 mls @ 100 mls/hr IV .Q10H [facility] Last Admin: 06/12/17 13:30 Dose: Not Given Meropenem (Merrem Iv 1 Gm Premix) 50 mls @ 100 mls/hr IVPB Q8 [facility] PRN Reason: Protocol Stop: 06/19/17 14:01 Last Admin: 06/12/17 13:20 Dose: 100 mls/hr Vancomycin HCl (Vancomycin 1gm) 1 gm in 250 mls @ 167 mls/hr IVPB Q12H [facility] PRN Reason: Protocol Stop: 06/19/17 10:46 Last Admin: 06/12/17 11:39 Dose: 167 mls/hr Nystatin (Nystop Topical Powder) 1 gm TOP DAILY [facility] Last Admin: 06/12/17 09:22 Dose: 1 appl Oxycodone/Acetaminophen (Percocet 5/325 Mg Tab) 1 tab PO Q6H PRN PRN Reason: Pain, moderate (4-7) Stop: 06/14/17 07:59 Last Admin: 06/12/17 18:08 Dose: 1 tab Polyethylene Glycol (Miralax) 17 gm PO BID [facility] Last Admin: 06/12/17 17:12 Dose: 17 gm - Labs Labs: 06/12/17 06:14 06/12/17 06:14 PT 13.1 SECONDS (9.4-12.5) H 06/10/17 07:10 INR 1.14 (0.93-1.08) H 06/10/17 07:10 APTT 30.1 Seconds (25.1-36.5) 06/10/17 07:10 - Additional Findings Additional findings: - Constitutional Appears: Non-toxic, No Acute Distress - Head Exam Head Exam: ATRAUMATIC, NORMAL INSPECTION, NORMOCEPHALIC - Eye Exam Eye Exam: EOMI, Normal appearance, PERRL - ENT Exam ENT Exam: Mucous Membranes Moist - Respiratory Exam Respiratory Exam: Clear to Ausculation Bilateral. absent: Accessory Muscle Use , Rales, Rhonchi, Wheezes, Respiratory Distress Additional comments: breath sounds R>L - Cardiovascular Exam Cardiovascular Exam: Tachycardia, REGULAR RHYTHM, +S1, +S2. absent: Murmur - GI/Abdominal Exam GI & Abdominal Exam: Soft, Normal Bowel Sounds. absent: Distended, Tenderness - Extremities Exam Extremities Exam: Tenderness (LUE ). absent: Calf Tenderness, Pedal Edema Additional comments: Left arm lymphedema - Neurological Exam Neurological Exam: Alert, Awake, Oriented x3 - Psychiatric Exam Psychiatric exam: Normal Affect, Normal Mood - Skin Skin Exam: Dry, Intact, Normal Color, Warm Assessment and Plan - Assessment and Plan (Free Text) Assessment: 51 year old female with PMH of metastatic breast CA to lung and bone who was admitted for evaluation and treatment of chest discomfort and dysphagia/ hoarseness of voice. CT chest showed left sided pleural effusion vs possible empyema which was drained 06/11/17. Plan: Dysphagia, Hoarseness of Voice - head CT- No acute findings - soft tissue neck CT- Left clavicular lymphadenopathy. Edema of the left trapezius muscle and surrounding fat. Heterogeneity C7 and T1 vertebrae - consider soft tissue neck and chest CT with IV contrast pending findings of modified barium swallow evaluation and patient's clinical course - Seen by speech * f/u barium swallow study * pureed with thin liquids recommended per speech - GI consulted (Michael), recs appreciated * will do EGD when anemia improved - ENT consulted (Ledy), recs appreciated * recommends barium swallow study Empyema vs pleural effusion - tachycadia, leukocytosis, elevated lactic acid - currently afebrile - blood cultures negative x 2, - urine culture negative - procal elevated at 0.80 - IVF NS @ 100 - UA not indicative of urinary infection - CT surgery consulted (Dr. Balderrama), recs Pulm consult, IR to diagnostic tap to confirm if empyema; if positive for empyema will likely require thoracotomy; dysphagia/odonophagia likely requires EGD, defer to GI for this * Pleural fluid appeared dark brown and cloudy , awaiting protein and LDH for Light's criteria -IR consilted (Dr. Pool), recs appreciated - Infectious disease consulted, recs appreciated * Currently on Vanc/Merrem - Pulm consulted (Mary Anne), recs appreciated Chest Pain - ACS ruled out - EKG reviewed and appreciated - sinus tachycardia, low voltage QRS, HR 129, Qtc 436; repeat EKG today shows sinus tachy to 139 - trops x3 negative - lipid profile reviewed, elevated TG at 270, HDL low at 30 -A1C 5.4 - CT angiography- No pleural embolism, Bilateral breast implants. Loculated left pleural effusion with surrounding rim raising the possibility of empyema. Small right pleural effusion. Left axillary edema and soft tissue density. Left lower chest wall edema extending into the upper abdomen. Right lung nodules. Mediastinal and left hilar lymph nodes. Compression fractures age indeterminate. - echo shows EF 55-60% Anemia - stable - Hgb low but stable * will follow with H&H - Pt refusing blood transfusion - iron studies: iron 51, TIBC 206, %sat 25, transferrin 147.44, Ferritin 1800 - vit B12 >1000 and folate 5.4 - f/u FOBT - Heme/Onc (Beckie) consulted, recs appreciated * started Aranesp 100 mg weekly - continue to monitor Rash - continue nystatin Stage IV Breast Cancer - hematology/oncology consulted- appreciate recommendations - prognosis is poor, palliative consulted due to lack of patient insight - per pt, was pending another chemotherapy tx on Sunday06/13/17; will likely need to be deferred given possible empyema -pain control: dilaudid and percocet Lymphedema of LUE -secondary to above -compression stocking for LUE -elevation - venous duplex normal - f/u arterial doppler -pain control as above Hypokalemia - repleted but remains low, additional potassium ordered - continue to monitor Elevated LFTs - stable - essentially unchanged from admission, continue to monitor - avoid hepatotoxins Disposition: Tele; pending palliative care eval and recs due to lack of insight on severity of disease Ppx: Protonix for GI, Heparin for DVT Patient seen, reviewed, and discussed with attending, Dr. Greer <Christi Greer - Last Filed: 06/12/17 21:33> Objective - Vital Signs/Intake and Output Vital Signs (last 24 hours): Temp Pulse Resp BP Pulse Ox 98.3 F 129 H 22 121/80 96 06/12/17 18:00 06/12/17 18:00 06/12/17 18:00 06/12/17 18:00 06/12/17 18:00 Intake and Output: 06/12/17 06/13/17 18:59 06:59 Intake Total 360 Balance 360 - Medications Medications: Current Medications Albuterol/Ipratropium (Duoneb 3 Mg/0.5 Mg (3 Ml) Ud) 3 ml IH [id number] PRN PRN Reason: Shortness of Breath Darbepoetin Joe (Aranesp) 100 mcg IVP MON [facility] Last Admin: 06/11/17 17:17 Dose: 100 mcg Famotidine (Pepcid) 40 mg PO HS [facility] Last Admin: 06/11/17 21:53 Dose: 40 mg Heparin Sodium (Porcine) (Heparin) 5,000 units SC Q8 [facility] PRN Reason: Protocol Last Admin: 06/12/17 13:21 Dose: 5,000 units Hydromorphone HCl (Dilaudid) 2 mg IVP Q2H PRN PRN Reason: Pain, moderate (4-7) Sodium Chloride (Sodium Chloride 0.9%) 1,000 mls @ 100 mls/hr IV .Q10H [facility] Last Admin: 06/12/17 13:30 Dose: Not Given Meropenem (Merrem Iv 1 Gm Premix) 50 mls @ 100 mls/hr IVPB Q8 [facility] PRN Reason: Protocol Stop: 06/19/17 14:01 Last Admin: 06/12/17 13:20 Dose: 100 mls/hr Vancomycin HCl (Vancomycin 1gm) 1 gm in 250 mls @ 167 mls/hr IVPB Q12H [facility] PRN Reason: Protocol Stop: 06/19/17 10:46 Last Admin: 06/12/17 11:39 Dose: 167 mls/hr Nystatin (Nystop Topical Powder) 1 gm TOP DAILY [facility] Last Admin: 06/12/17 09:22 Dose: 1 appl Oxycodone/Acetaminophen (Percocet 5/325 Mg Tab) 1 tab PO Q6H PRN PRN Reason: Pain, moderate (4-7) Stop: 06/14/17 07:59 Last Admin: 06/12/17 18:08 Dose: 1 tab Polyethylene Glycol (Miralax) 17 gm PO BID [facility] Last Admin: 06/12/17 17:12 Dose: 17 gm - Labs Labs: 06/12/17 06:14 06/12/17 06:14 PT 13.1 SECONDS (9.4-12.5) H 06/10/17 07:10 INR 1.14 (0.93-1.08) H 06/10/17 07:10 APTT 30.1 Seconds (25.1-36.5) 06/10/17 07:10 Attending/Attestation - Attestation I have personally seen and examined this patient.: Yes I have fully participated in the care of the patient.: Yes I have reviewed all pertinent clinical information, including history, physical exam and plan: Yes Notes (Text): 06/12/17 21:30 51 year old female with past medical history of metastatic breast cancer who presented with dysphagia and chest discomfort. CT chest was obtained which showed left sided pleural effusion vs possible empyema. She is currently on iv antibiotics as per ID. CT surgery and pulmonary are following. She is s/p thoracocentesis yesterday; will follow up on results. GI and ENT are following; recommended barium study which was cancelled per oncologist. She still complains of chronic pain; dilaudid dose/frequency is increased today. Overall prognosis is poor; consider palliative evaluation. Anemia workup is ordered along with aranesp as per admission nurse. Patient refused blood transfusion. Will replete and repeat potassium. Continue to monitor LFTs closely. Christi Greer MD Hospitalist.
--- NOTE | 2017-06-13 00:32 | PN ---
DATE: 06/12/2017 SUBJECTIVE: The patient is in bed, in no acute distress, and nontoxic. PHYSICAL EXAMINATION: VITAL SIGNS: Temperature is 98, blood pressure is 120/80, and respiratory rate is 16. HEENT: Unremarkable. NECK: Supple. LUNGS: Have decreased breath sounds. HEART: Normal S1 and S2. ABDOMEN: Soft. LABORATORY DATA: Reveals white count of 32,000, hemoglobin of 7.9, and platelets of 443. BUN of 6, creatinine of 0.3, and procalcitonin is 0.8. Microbiology reveals the blood cultures negative. Urine cultures negative. Review of orders reveals the patient to be on meropenem and vancomycin. ASSESSMENT AND PLAN: This is a 51-year-old with sepsis due to left arm cellulitis, chronic lymphedema, breast cancer stage IV, status post bilateral mastectomy, status post port placement, diabetic, and hypertensive. Continue vancomycin and meropenem. The patient's chest x-ray consistent almost complete opacification of left hemithorax. report not available, Dr. Rodriguez's progress note is reviewed showed left-sided loculated pleural effusion and progressive dysphagia and dyspepsia and status post thoracentesis by Interventional Radiologist, by Dr. Brennen Pool. We will check on those cultures, on meropenem and vancomycin. Arthur Rodriguez MD
--- NOTE | 2017-06-13 00:58 | PN ---
DATE: 06/12/2017 REFERRING PHYSICIAN: Dr. Greer. SUBJECTIVE: She is lying in the bed, friend at bedside. Night was unremarkable. Status post thoracentesis with removal of 350 mL of discolored fluid. Still having chest, upper back left upper extremity discomfort, getting her Dilaudid [id number]. No hemoptysis, no hematemesis, no hematuria. No diarrhea reported. OBJECTIVE: GENERAL: [id number] distress secondary to pain. VITAL SIGNS: Temperature is 98, heart rate is 119, respiratory rate is 20, blood pressure 130/85, pulse ox 96% on room air. HEENT: Moist mucous membrane. Crowded airway. NECK: Supple. No JVD. LUNGS: Has decreased breath sounds the left side. HEART: S1 and S2. ABDOMEN: Soft, nontender, no organomegaly. EXTREMITIES: No edema. Left upper extremity has a lymphedema. NEUROLOGICAL: Awake, alert, follows simple command. MEDICATIONS: She is on Aricept 100 mcg weekly, Dilaudid 2 mg IV q. 2 hours p.r.n., DuoNeb q. 6 hours p.r.n., heparin 5000 units subcu q. 8 hours, Merrem is 1 gm IV q.8 hours, MiraLax 17 gm twice a day, Pepcid 40 mg at bedtime, Percocet 5/225 1 tablet q .6 hours p.r.n., IV fluid normal saline 100 mL per hour, vancomycin 1 gm IV q. 12 hours. LABORATORY DATA: Shows hemoglobin 7.9, hematocrit 27.3, WBC 32,000, platelet is 443. ABG show pH 7.38, pCO2 is 46, O2 101. Sodium 145, potassium 3.2, chloride 105, bicarbonate 26, BUN 6, creatinine 0.3, glucose 89, calcium is 7.9, AST 44, ALT 24, alk phos is 131. LDH is 1110, albumin is 2.9. Pleural fluid shows WBC 11, RBC 440. So far cultures has been negative. Chest x-ray done today shows decrease perfusion on the left after thoracentesis. Echocardiogram is unremarkable. IMPRESSION AND PLAN: Metastatic breast cancer, recurrent pleural effusion status post thoracentesis, odynophagia. Pulmonary point of view, doing okay. Continue supplemental oxygen. Keep head 45 degrees. Being treated with broad spectrum antibiotics, pain management. Elevate left upper extremity. Gastric prophylaxis, deep venous thrombosis prophylaxis. If pleural effusion is recurrent may need to consider pleurodesis versus PleurX catheter in the future. Thank you, I will follow with you. Jermaine North MD
[2017-06-13] MEDS: HYDROmorphone 2 mg/ml ISec IVP PRN ×7 (01:16→15:32)
[2017-06-13] MEDS: Meropenem IV 1 gm in NS 50 ML IVPB SCH ×2 (06:22→13:18)
[2017-06-13 07:23] LABS: BASO # 0.07 K/mm3 (0.0-2.0); BASO % 0.2 % (0.0-3.0); GRAN # 29.25 (1.4-6.5); GRAN % 92.5 % (50.0-68.0); LYMPH # 1.2 (1.2-3.4); LYMPH % 3.6 % (22.0-35.0); MEAN CELL VOLUME 85.6 fl (80.0-105.0); MEAN CORPUSCULAR HEMOGLOBIN 24.2 pg (25.0-35.0); MEAN CORPUSCULAR HGB CONC 28.3 g/dl (31.0-37.0); MEAN PLATELET VOLUME 9.3 fl (7.0-11.0); MONO # 1.2 (0.1-0.6); MONO % 3.7 % (1.0-6.0); PLATELET COUNT 470 10^3/uL (120.0-450.0); RBC 3.26 10^6/uL (3.5-6.1); RED CELL DISTRIBUTION WIDTH 25.1 % (11.5-14.5)
[2017-06-13 07:57] LABS: ALB/GLOB RATIO 1.1 (1.1-1.8); ALT/SGPT 29 U/L (7-56); AST/SGOT 45 U/L (14-36); BLOOD UREA NITROGEN 8 mg/dL (7-21); CALCIUM 7.9 mg/dL (8.4-10.5); GFR AFRICAN-AMERICAN > 60; GFR NON-AFRICAN AMERICAN > 60; HEMOGLOBIN 7.9 g/dL (12.0-16.0); WHITE BLOOD COUNT 31.7 10^3/ul (4.5-11.0)
[2017-06-13 09:21] LABS: ANISOCYTOSIS 2+; HYPOCHROMIA 2+; LYMPHOCYTE 5 % (22.0-35.0); MONOCYTE 5 % (1.0-6.0); NEUTROPHIL 90 % (50.0-70.0); OVALOCYTES 1+; PLATELET ESTIMATE HIGH (NORMAL); POIKILOCYTOSIS SLIGHT; POLYCHROMASIA SLIGHT; TEAR DROP CELLS SLIGHT
[2017-06-13 09:22] LABS: HELMET CELLS SLIGHT; TOXIC GRANULATION 1+
[2017-06-13] MEDS: Vancomycin 1gm in NS 250ml 1 GM/250 ML BAG IVPB SCH (10:21)
[2017-06-13] MEDS: POLYETHYLENE GLYCOL 3350 17 GM/Dose PACKET PO SCH ×2 (10:22→17:52)
[2017-06-13] MEDS: Sodium Chloride 0.9% 1,000 ML IV SCH (10:22)
[2017-06-13] MEDS: Nystatin 100,000 Units/gm Topical Pow(15 gm) TOP SCH (10:26)
[2017-06-13] MEDS: Dexamethasone 4 mg/1 ml IVP SCH ×2 (11:02→21:23)
--- NOTE | 2017-06-13 11:09 | CP.PCM.CON ---
History of Present Illness - History of Present Illness History of Present Illness: Palliative consult requested by Dr Rajni Greer Reason: Goals of care 51 year old female with history of metastatic colon cancer who presented with dry mouth, mild dysphagia and hoarseness of 3 day duration.She also reported some dyspnea on exertion and intermitted chest discomfort. She has history of low back pain.She denied cough, fever, chills hemoptysis, nausea, vomiting, headache or memory loss. CT of cheats showed a left located pleural effusion possible empyema,small right pleural effusion, lower chest wall edema extending into the upper abdomen, right lung nodules and mediastinal and left hilar lymph nodes. CT of head showed no acute findings. PMHX: metastatic breast cancer ongoing chemotherapy,s/p proton beam RT, bilateral mastectomy, bilateral breasts implants, left thoracentisis, lymphedema of LUE.. Social History: Former smoker, denies alcohol, occasional marijuana use. Lives with family Family History: Her sister has breast cancer. Advance Care Planning: The patient does not have an Advanced Directive. Review of Systems: As per HPI, review otherwise negative Past Patient History - Infectious Disease Hx of Infectious Diseases: None - Past Medical History & Family History Past Medical History?: Yes - Past Social History Smoking Status: Former Smoker - CARDIAC Hx Cardiac Disorders: No - PULMONARY Hx Respiratory Disorders: No - NEUROLOGICAL Hx Neurological Disorder: No - HEENT Hx HEENT Problems: No - RENAL Hx Chronic Kidney Disease: No - ENDOCRINE/METABOLIC Hx Endocrine Disorders: No - HEMATOLOGICAL/ONCOLOGICAL Hx Blood Disorders: Yes Hx Cancer: Yes (BREAST CA 12/2012) Hx Chemotherapy: Yes - INTEGUMENTARY Hx Dermatological Problems: Yes Other/Comment: LEFT AXILLARY LESION - MUSCULOSKELETAL/RHEUMATOLOGICAL Hx Musculoskeletal Disorders: No - GASTROINTESTINAL Hx Gastrointestinal Disorders: Yes Other/Comment: CONSTIPATION - GENITOURINARY/GYNECOLOGICAL Hx Genitourinary Disorders: No - PSYCHIATRIC Hx Psychophysiologic Disorder: No Hx Substance Use: No - SURGICAL HISTORY Hx Mastectomy: Yes (bilateral) Other/Comment: L lynphadema - ANESTHESIA Hx Anesthesia Reactions: Yes (NAUSEOUS) Hx Malignant Hyperthermia: No Meds Allergies/Adverse Reactions: Allergies Allergy/AdvReac Type Severity Reaction Status Date / Time No Known Allergies Allergy Verified 03/26/15 13:38 - Medications Medications: Current Medications Albuterol/Ipratropium (Duoneb 3 Mg/0.5 Mg (3 Ml) Ud) 3 ml IH [id number] PRN PRN Reason: Shortness of Breath Darbepoetin Joe (Aranesp) 100 mcg IVP MON [facility] Last Admin: 06/11/17 17:17 Dose: 100 mcg Famotidine (Pepcid) 40 mg PO HS [facility] Last Admin: 06/12/17 21:17 Dose: 40 mg Heparin Sodium (Porcine) (Heparin) 5,000 units SC Q8 [facility] PRN Reason: Protocol Last Admin: 06/13/17 06:23 Dose: 5,000 units Hydromorphone HCl (Dilaudid) 2 mg IVP Q2H PRN PRN Reason: Pain, moderate (4-7) Last Admin: 06/13/17 09:00 Dose: 2 mg Sodium Chloride (Sodium Chloride 0.9%) 1,000 mls @ 100 mls/hr IV .Q10H [facility] Last Admin: 06/13/17 10:22 Dose: 100 mls/hr Meropenem (Merrem Iv 1 Gm Premix) 50 mls @ 100 mls/hr IVPB Q8 [facility] PRN Reason: Protocol Stop: 06/19/17 14:01 Last Admin: 06/13/17 06:22 Dose: 100 mls/hr Vancomycin HCl (Vancomycin 1gm) 1 gm in 250 mls @ 167 mls/hr IVPB Q12H [facility] PRN Reason: Protocol Stop: 06/19/17 10:46 Last Admin: 06/13/17 10:21 Dose: 167 mls/hr Nystatin (Nystop Topical Powder) 1 gm TOP DAILY [facility] Last Admin: 06/13/17 10:26 Dose: 1 appl Oxycodone/Acetaminophen (Percocet 5/325 Mg Tab) 1 tab PO Q6H PRN PRN Reason: Pain, moderate (4-7) Stop: 06/14/17 07:59 Last Admin: 06/12/17 18:08 Dose: 1 tab Polyethylene Glycol (Miralax) 17 gm PO BID [facility] Last Admin: 06/13/17 10:22 Dose: 17 gm Physical Exam - Constitutional Appears: No Acute Distress, Chronically Ill - Head Exam Head Exam: NORMAL INSPECTION - Eye Exam Eye Exam: Normal appearance, PERRL - ENT Exam ENT Exam: Mucous Membranes Moist, Normal Oropharynx - Neck Exam Neck exam: Positive for: Normal Inspection - Respiratory Exam Respiratory Exam: Chest Wall Tenderness, Decreased Breath Sounds, NORMAL BREATHING PATTERN - Cardiovascular Exam Cardiovascular Exam: REGULAR RHYTHM, +S1 Additional comments: no JVD - GI/Abdominal Exam GI & Abdominal Exam: Normal Bowel Sounds, Soft - Extremities Exam Extremities exam: Positive for: normal capillary refill Additional comments: LUE edema - Back Exam Back exam: vertebral tenderness - Neurological Exam Neurological exam: Alert, Oriented x3 - Skin Skin Exam: Dry, Warm - Additional Findings Additional findings: Palliative performance scale rating 60 % Results - Vital Signs Recent Vital Signs: Last Vital Signs Temp 98.3 F 06/12/17 18:00 Pulse 118 H 06/13/17 02:00 Resp 20 06/12/17 18:00 BP 121/80 06/12/17 18:00 Pulse Ox 96 06/12/17 18:00 - Labs Result Diagrams: 06/13/17 06:30 06/13/17 06:30 Labs: Laboratory Results - last 24 hr 06/13/17 06/13/17 06:30 06:30 WBC 31.7 H* RBC 3.26 L Hgb 7.9 L Hct 27.9 L MCV 85.6 MCH 24.2 L MCHC 28.3 L RDW 25.1 H Plt Count 470 H MPV 9.3 Gran % 92.5 H Lymph % (Auto) 3.6 L [place] % (Auto) 3.7 Eos % (Auto) 0.0 L Baso % (Auto) 0.2 Gran # 29.25 H Lymph # (Auto) 1.2 [place] # (Auto) 1.2 H Eos # (Auto) 0.0 Baso # (Auto) 0.07 Neutrophils % (Manual) 90 H Lymphocytes % (Manual) 5 L Monocytes % (Manual) 5 Toxic Granulation 1+ Platelet Evaluation High Polychromasia Slight Hypochromasia 2+ Poikilocytosis (manual Slight Anisocytosis (manual) 2+ Tear Drop Cells Slight Ovalocytes 1+ Helmet Cells Slight Sodium 144 Potassium 3.2 L Chloride 106 Carbon Dioxide 25 Anion Gap 16 BUN 8 Creatinine 0.4 L Est GFR ( Amer) > 60 Est GFR (Non-Af Amer) > 60 Random Glucose 94 Calcium 7.9 L Total Bilirubin 0.5 AST 45 H ALT 29 Alkaline Phosphatase 143 H Total Protein 5.7 L Albumin 3.0 Globulin 2.7 Albumin/Globulin Ratio 1.1 Assessment & Plan - Assessment and Plan (Free Text) Assessment: 51 year old female with history of metastatic breast cancer, left pleural effusion who is admitted with dyspnea, chest wall pain, left pleural effusions vs empyema,dysphagia, leukocytosis, anemia, lymphedema of LUE. The patient is alert, Complains of fatigue, HANS discomfort. She states she has been receiving chemotherapy until recently. She expressed that dealing with her illness has been a long difficult [place]o. She expressed that she is tired of being ill. She states that her family is supportive but that she gains most of her strength from prayer and god. Although he treatment is on hold, she expressed that she would be willing to continue treatment when offered. I asked if there was a family member or friend that she relied on to make her decisions. She did not commit to naming someone. Encouraged her to consider naming health care surrogate. Advance care planning also discussed. Living will explained. Patient states she is not comfortable in speaking about this topic today. Again, encouraged her to think about her wishes and to share with her family when ready. Patient exhibits psychosocial distress related to burdens of her illness. Reassured that we could revisit this at another time. She is appreciative of my visit. Will also have toys and games hand finisher visit in order to provide spiritual support. Time spent in goals of care and advance care planning discussion, 20 minutes Plan: Palliative support in establishing goals of care and advance care planning
--- NOTE | 2017-06-13 12:11 | PN ---
DATE: 06/13/2017 SUBJECTIVE: The patient is lying in bed. She complains of significant amount of pain in her arm as well as in her chest and upper back. She has been getting Dilaudid 1 mg q.4 hours, which does not relieve her pain for more than an hour each time. She also had a thoracentesis, only 350 mL of bloody fluid was extracted as the effusion is loculated. She continuous to have difficulty swallowing. PHYSICAL EXAMINATION: GENERAL: She is in [id number] pain. She does seem to be in distress. VITAL SIGNS: Temperature is 98, heart rate 119, respiratory rate 20, blood pressure 130/80, her O2 sats are 96% on room air. HEENT: Head and Neck: Normocephalic and atraumatic. Eyes: Pupils equal, round, and reactive to light and accommodation. Extraocular muscles are intact. There is marked pallor. No icterus is noted. NECK: Supple with no adenopathy. No JVD. No thyromegaly. LUNGS: Markedly decreased breath sounds on the left side, almost absent. HEART: S1 and S2 heard. The patient is tachycardic. ABDOMEN: Positive bowel sounds. Soft, nontender, and nondistended. No organomegaly is palpated. EXTREMITIES: There is marked edema of the left upper extremity secondary to lymph edema. NEUROLOGIC: The patient is alert, awake, oriented x3. LABORATORY DATA: Her labs reveal a white count of 31.7, hemoglobin 7.9, hematocrit 27.9, MCV of 85.6, and a platelet count of 470,000. Chemistries are within normal limits. ASSESSMENT AND PLAN: A middle-aged female with stage IV triple negative breast cancer, widely metastatic disease with progression. She has not been responding to any chemotherapeutic agents as of recently. She was started on Ixempra a few weeks ago with doubling of her cancer antigen 27-29 and now with a recurrent pleural effusion as well as recurrent laryngeal nerve involvement and difficulty swallowing. Overall prognosis is guarded. Have had multiple discussions with the patient and family in the past regarding this continued pain management. Discussed with the patient regarding packed red blood cells transfusion, which she is agreeable to. We will arrange for the above. We will also discuss with the patient regarding hospice care. Thank you for the consult. We will follow. Duyen Butts MD [facility] # [id number]
--- NOTE | 2017-06-13 14:01 | CP.PCM.PN ---
<Lary Dodd - Last Filed: 06/13/17 13:55> Subjective - Date & Time of Evaluation Date of Evaluation: 06/13/17 Time of Evaluation: 13:55 - Subjective Subjective: Patient seen and examined at bedside. Patient resting comfortably in bed and says her pain has improved some. Patient feels short of breath since this morning after her dose of dilaudid and antibiotics. Patient is still having difficulty swallowing. She has not had a BM since last Sunday. Denies headache, dizziness, abdominal pain, n/v, LE pain. Objective - Vital Signs/Intake and Output Vital Signs (last 24 hours): Temp Pulse Resp BP Pulse Ox 98.5 F 127 H 21 129/82 96 06/13/17 12:00 06/13/17 12:00 06/13/17 12:00 06/13/17 12:00 06/13/17 12:00 - Medications Medications: Current Medications Albuterol/Ipratropium (Duoneb 3 Mg/0.5 Mg (3 Ml) Ud) 3 ml IH [id number] PRN PRN Reason: Shortness of Breath Darbepoetin Joe (Aranesp) 100 mcg IVP MON [facility] Last Admin: 06/11/17 17:17 Dose: 100 mcg Dexamethasone (Decadron Inj) 4 mg IVP Q12 [facility] Last Admin: 06/13/17 11:02 Dose: 4 mg Famotidine (Pepcid) 40 mg PO HS [facility] Last Admin: 06/12/17 21:17 Dose: 40 mg Heparin Sodium (Porcine) (Heparin) 5,000 units SC Q8 [facility]ARI PRN Reason: Protocol Last Admin: 06/13/17 13:18 Dose: 5,000 units Hydromorphone HCl (Dilaudid) 2 mg IVP Q2H PRN PRN Reason: Pain, moderate (4-7) Last Admin: 06/13/17 13:18 Dose: 2 mg Sodium Chloride (Sodium Chloride 0.9%) 1,000 mls @ 100 mls/hr IV .Q10H [facility] Last Admin: 06/13/17 10:22 Dose: 100 mls/hr Meropenem (Merrem Iv 1 Gm Premix) 50 mls @ 100 mls/hr IVPB Q8 KHARI PRN Reason: Protocol Stop: 06/19/17 14:01 Last Admin: 06/13/17 13:18 Dose: 100 mls/hr Vancomycin HCl (Vancomycin 1gm) 1 gm in 250 mls @ 167 mls/hr IVPB Q12H K[facility]ARI PRN Reason: Protocol Stop: 06/19/17 10:46 Last Admin: 06/13/17 10:21 Dose: 167 mls/hr Nystatin (Nystop Topical Powder) 1 gm TOP DAILY [facility] Last Admin: 06/13/17 10:26 Dose: 1 appl Oxycodone/Acetaminophen (Percocet 5/325 Mg Tab) 1 tab PO Q6H PRN PRN Reason: Pain, moderate (4-7) Stop: 06/14/17 07:59 Last Admin: 06/12/17 18:08 Dose: 1 tab Polyethylene Glycol (Miralax) 17 gm PO BID [facility] Last Admin: 06/13/17 10:22 Dose: 17 gm - Labs Labs: 06/13/17 06:30 06/13/17 06:30 PT 13.1 SECONDS (9.4-12.5) H 06/10/17 07:10 INR 1.14 (0.93-1.08) H 06/10/17 07:10 APTT 30.1 Seconds (25.1-36.5) 06/10/17 07:10 - Additional Findings Additional findings: - Constitutional Appears: Non-toxic, No Acute Distress - Head Exam Head Exam: ATRAUMATIC, NORMAL INSPECTION, NORMOCEPHALIC - Eye Exam Eye Exam: EOMI, Normal appearance, PERRL - ENT Exam ENT Exam: Mucous Membranes Moist - Respiratory Exam Respiratory Exam: Clear to Ausculation Bilateral. absent: Accessory Muscle Use , Rales, Rhonchi, Wheezes, Respiratory Distress Additional comments: breath sounds R>L - Cardiovascular Exam Cardiovascular Exam: Tachycardia, REGULAR RHYTHM, +S1, +S2. absent: Murmur - GI/Abdominal Exam GI & Abdominal Exam: Soft, Normal Bowel Sounds. absent: Distended, Tenderness - Extremities Exam Extremities Exam: Tenderness (LUE ). absent: Calf Tenderness, Pedal Edema Additional comments: Left arm lymphedema, pulses palpable in both arms - Neurological Exam Neurological Exam: Alert, Awake, Oriented x3 - Psychiatric Exam Psychiatric exam: Normal Affect, Normal Mood - Skin Skin Exam: Dry, Intact, Normal Color, Warm Assessment and Plan - Assessment and Plan (Free Text) Assessment: 51 year old female with PMH of metastatic breast CA to lung and bone who was admitted for evaluation and treatment of chest discomfort and dysphagia/ hoarseness of voice. CT chest showed left sided pleural effusion vs possible empyema which was drained 06/11/17. Plan: Dysphagia, Hoarseness of Voice - head CT- No acute findings - soft tissue neck CT- Left clavicular lymphadenopathy. Edema of the left trapezius muscle and surrounding fat. Heterogeneity C7 and T1 vertebrae - barium swallow study needed - Seen by speech * pureed with thin liquids recommended per speech - GI consulted (Michael), recs appreciated * will do EGD when anemia improved - ENT consulted (Ledy), recs appreciated * recommends barium swallow study Empyema vs pleural effusion - tachycadia, leukocytosis, elevated lactic acid - currently afebrile - blood cultures negative x 2, - urine culture negative - procal elevated at 0.80 - IVF NS @ 100 - UA not indicative of urinary infection - CT surgery consulted (Dr. Balderrama), recs Pulm consult, IR to diagnostic tap to confirm if empyema; if positive for empyema will likely require thoracotomy; dysphagia/odonophagia likely requires EGD, defer to GI for this * Pleural fluid appeared dark brown and cloudy , awaiting protein and LDH for Light's criteria -IR consilted (Dr. Pool), recs appreciated - Infectious disease consulted, recs appreciated * Currently on Vanc/Merrem - Pulm consulted (Mary Anne), recs appreciated Shortness of breath * possible recurrence of empyema/plearal effusion * will f/u CXR Chest Pain - ACS ruled out - EKG reviewed and appreciated - sinus tachycardia, low voltage QRS, HR 129, Qtc 436; repeat EKG today shows sinus tachy to 139 - trops x3 negative - lipid profile reviewed, elevated TG at 270, HDL low at 30 -A1C 5.4 - CT angiography- No pleural embolism, Bilateral breast implants. Loculated left pleural effusion with surrounding rim raising the possibility of empyema. Small right pleural effusion. Left axillary edema and soft tissue density. Left lower chest wall edema extending into the upper abdomen. Right lung nodules. Mediastinal and left hilar lymph nodes. Compression fractures age indeterminate. - echo shows EF 55-60% Anemia - stable - Hgb low but stable * will follow with H&H - Pt refusing blood transfusion - iron studies: iron 51, TIBC 206, %sat 25, transferrin 147.44, Ferritin 1800 - vit B12 >1000 and folate 5.4 - f/u FOBT - Heme/Onc (Beckie) consulted, recs appreciated * started Aranesp 100 mg weekly - continue to monitor Rash - continue nystatin Stage IV Breast Cancer - hematology/oncology consulted- appreciate recommendations - prognosis is poor, palliative consulted due to lack of patient insight - per pt, was pending another chemotherapy tx on Sunday06/13/17; will likely need to be deferred given possible empyema -pain control: dilaudid and percocet Lymphedema of LUE -secondary to above -palpable pulses -compression stocking for LUE -elevation - venous duplex normal - arterial doppler: PVR waveforms blunted but discussed with IR and currently ok to observe since she has good pulses -pain control as above Constipation -likely 2/2 chronic opiate use -patient having difficulty tolerating miralax -will try relestor and talk with GI regarding use Hypokalemia - repleted but remains low, additional potassium ordered - continue to monitor Elevated LFTs - stable - essentially unchanged from admission, continue to monitor - avoid hepatotoxins Disposition: Tele; pending palliative care eval and recs due to lack of insight on severity of disease Ppx: Protonix for GI, Heparin for DVT Patient seen, reviewed, and discussed with attending, Dr. Greer <Christi Greer - Last Filed: 06/13/17 14:44> Objective - Vital Signs/Intake and Output Vital Signs (last 24 hours): Temp Pulse Resp BP Pulse Ox 98.5 F 127 H 21 129/82 96 06/13/17 12:00 06/13/17 12:00 06/13/17 12:00 06/13/17 12:00 06/13/17 12:00 - Medications Medications: Current Medications Albuterol/Ipratropium (Duoneb 3 Mg/0.5 Mg (3 Ml) Ud) 3 ml IH [id number] PRN PRN Reason: Shortness of Breath Darbepoetin Joe (Aranesp) 100 mcg IVP MON [facility] Last Admin: 06/11/17 17:17 Dose: 100 mcg Dexamethasone (Decadron Inj) 4 mg IVP Q12 [facility] Last Admin: 06/13/17 11:02 Dose: 4 mg Famotidine (Pepcid) 40 mg PO HS [facility]I Last Admin: 06/12/17 21:17 Dose: 40 mg Heparin Sodium (Porcine) (Heparin) 5,000 units SC Q8 KHARI PRN Reason: Protocol Last Admin: 06/13/17 13:18 Dose: 5,000 units Hydromorphone HCl (Dilaudid) 2 mg IVP Q2H PRN PRN Reason: Pain, moderate (4-7) Last Admin: 06/13/17 13:18 Dose: 2 mg Sodium Chloride (Sodium Chloride 0.9%) 1,000 mls @ 100 mls/hr IV .Q10H [facility] Last Admin: 06/13/17 10:22 Dose: 100 mls/hr Meropenem (Merrem Iv 1 Gm Premix) 50 mls @ 100 mls/hr IVPB Q8 KHARI PRN Reason: Protocol Stop: 06/19/17 14:01 Last Admin: 06/13/17 13:18 Dose: 100 mls/hr Vancomycin HCl (Vancomycin 1gm) 1 gm in 250 mls @ 167 mls/hr IVPB Q12H [facility]ARI PRN Reason: Protocol Stop: 06/19/17 10:46 Last Admin: 06/13/17 10:21 Dose: 167 mls/hr Potassium Chloride (Potassium Chloride 20 Meq/100 Ml) 20 meq in 100 mls @ 50 mls/hr IVPB Q2H [facility]I Stop: 06/13/17 18:14 Nystatin (Nystop Topical Powder) 1 gm TOP DAILY [facility] Last Admin: 06/13/17 10:26 Dose: 1 appl Oxycodone/Acetaminophen (Percocet 5/325 Mg Tab) 1 tab PO Q6H PRN PRN Reason: Pain, moderate (4-7) Stop: 06/14/17 07:59 Last Admin: 06/12/17 18:08 Dose: 1 tab Polyethylene Glycol (Miralax) 17 gm PO BID [facility] Last Admin: 06/13/17 10:22 Dose: 17 gm - Labs Labs: 06/13/17 06:30 06/13/17 06:30 PT 13.1 SECONDS (9.4-12.5) H 06/10/17 07:10 INR 1.14 (0.93-1.08) H 06/10/17 07:10 APTT 30.1 Seconds (25.1-36.5) 06/10/17 07:10 Attending/Attestation - Attestation I have personally seen and examined this patient.: Yes I have fully participated in the care of the patient.: Yes I have reviewed all pertinent clinical information, including history, physical exam and plan: Yes Notes (Text): 06/13/17 14:42 51 year old female with past medical history of metastatic breast cancer who presented with dysphagia and chest discomfort. CT chest was obtained which showed left sided pleural effusion vs possible empyema. She is s/p thoracocentesis. She is currently on iv antibiotics as per ID. CT surgery and pulmonary are following. Will repeat CXR today. GI and ENT are following the patient as well; recommended barium study which will be re-ordered for tomorrow. She is on aranesp for anemia as per yard spotter. Patient refused blood transfusion. Will replete and repeat potassium. Continue to monitor LFTs closely. She is on miralax for constipation; trial of one dose of relistor. Overall prognosis is poor; palliative evaluation evaluation was appreciated. Christi Greer MD Hospitalist.
--- NOTE | 2017-06-13 15:26 | RAD ---
HISTORY: SOB COMPARISON: 06/12/2017 TECHNIQUE: Chest PA and lateral FINDINGS: LUNGS: There is near complete opacification of the left lung. CT shows this to be due to loculated pleural effusions. The finding is unchanged. Right lung remains clear PLEURA: No significant pleural effusion identified. No pneumothorax apparent. CARDIOVASCULAR: Normal. OSSEOUS STRUCTURES: No significant abnormalities. VISUALIZED UPPER ABDOMEN: Normal. OTHER FINDINGS: None. IMPRESSION: No change in appearance of large left-sided pleural effusions
--- NOTE | 2017-06-13 16:06 | PN ---
DATE: 06/13/2017 SUBJECTIVE: The patient remains weak. She continues to have poor appetite, poor oral intake and saying she cannot swallow even liquids. A modified barium swallow is pending. The patient has occasional cough. She has refused a blood transfusion for anemia. PHYSICAL EXAMINATION VITAL SIGNS: Reveal temperature of 98.4, blood pressure 129/82, heart rate of 127. HEENT: Reveal sclerae to be white. Conjunctivae pale. NECK: Supple. CHEST: Revealed decreased breath sounds at the left base with scattered rhonchi. She has some edema of the chest wall. ABDOMEN: Soft, nontender. EXTREMITIES: Show 3+ swelling of her left arm, which is in a compressive sleeve. LABORATORY DATA: Revealed white blood cell count 31.7, hemoglobin 7.9, potassium 3.2. IMPRESSION: 1. Breast cancer with diffuse metastasis. 2. Loculated left pleural effusion. 3. Oropharyngeal dysphagia. 4. Anorexia. 5. Anemia. RECOMMENDATIONS: 1. Continue IV antibiotics. 2. Await modified barium swallow with video. 3. I will schedule the patient for an upper endoscopy for the morning as the patient continues to have inability to be swallow. Jesus Rodriguez MD [facility]
--- NOTE | 2017-06-13 17:27 | US ---
PROCEDURE: Right upper extremity venous US CLINICAL HISTORY: Arm pain and swelling Evaluate for deep venous thrombosis. PHYSICIAN(S): Brennen Pool M.D FINDINGS: The visualized rightinternal jugular vein is sonographically normal and compressible. No evidence of obstruction or thrombus is seen. The visualized segments of the right subclavian vein are patent with normal waveforms. No sonographic evidence of obstruction or thrombosis is seen. The visualized deep venous system of the proximal right upper extremity is sonographically normal and compressible. IMPRESSION: 1. No sonographic evidence for deep venous thrombosis in the visualized segments of the right upper extremity.
[2017-06-13] MEDS: Oxycodone/Acetaminophen 5/325 mg Tab PO PRN (17:52)
[2017-06-13] MEDS ORDERED: HYDROmorphone 2 mg/ml ISec IVP PRN (19:08)
--- NOTE | 2017-06-13 19:40 | PN ---
PULMONARY PROGRESS NOTE DATE: 06/13/2017 REFERRING PHYSICIAN: Jermaine Major MD SUBJECTIVE: She is lying in the bed, head at 45 degrees. Night was unremarkable. She has short of breath with exertion, has left-sided pain and left upper extremity pain. No nausea. No vomiting. No diarrhea. No leg swelling. OBJECTIVE: GENERAL: In no acute distress. VITAL SIGNS: Temperature is 98, heart rate is 120, respiratory rate is 20, blood pressure is 129/82, and pulse ox is 96% on room air. HEENT: Moist mucous membrane. No ulcer or thrush. NECK: Supple. No JVD. LUNGS: Has decreased breath sounds in the left lung. Has lymphedema of the left upper extremity. HEART: S1 and S2. ABDOMEN: Soft and nontender. No organomegaly. EXTREMITIES: No edema of lower extremity. NEUROLOGICAL: Awake, alert, and follows simple command. MEDICATIONS: She is on Aranesp 100 mcg IV weekly, also Decadron 4 mg q.12 hours, Dilaudid 2 mg q.2 hours p.r.n., DuoNeb q.6 hours p.r.n., heparin 5000 units subcutaneously q.8 hours, meropenem 1 g IV q.8 hours, MiraLax 17 g p.o. twice a day, Pepcid 40 mg daily, Percocet 5/325 one tablet q.6 hours p.r.n., potassium supplement, also getting IV fluid normal saline at 100 mL per hour, and vancomycin 1 g IV q.12 hours. LABORATORY DATA: Shows hemoglobin 7.9, hematocrit 27.9, WBC 31.7, and platelet is 470. Sodium 144, potassium 3.2, chloride 106, bicarbonate 25, BUN 8, creatinine 0.4, glucose 94, and calcium is 7.9. AST 44, ALT 29, alk phos is 143, and albumin is 3.0. HIV being nonreactive. Microbiology, pleural fluid so far there is no growth. IMPRESSION AND PLAN: Metastatic breast cancer, recurrent pleural effusion, status post thoracentesis. Pulmonary point of view, doing okay, keep head at 45 degrees, incentive spirometer, bronchodilator, pain management, gastric prophylaxis and deep venous thrombosis prophylaxis, and Oncology followup. Thank you and we will follow with you. Jermaine North MD [facility] # [id number]
--- NOTE | 2017-06-14 00:23 | PN ---
DATE: 06/13/2017 SUBJECTIVE: The patient is in bed, in no acute distress. PHYSICAL EXAMINATION: VITAL SIGNS: Temperature is 98, blood pressure is 129/80, respiratory rate of 21, and heart rate of 120. HEENT: Unremarkable. NECK: Supple. LUNGS: Have decreased breath sounds. HEART: Normal S1 and S2. ABDOMEN: Soft and nontender. LABORATORY DATA: Reveals a white count of 31,000 and hemoglobin of 7. Chemistry reveals a BUN of 8 and creatinine of 0.4. Urinalysis is noted and serology for HIV is negative. Microbiology reveals the pleural fluid cultures are negative. Blood cultures, there are no growth. Urine cultures, there are no growth. ASSESSMENT AND PLAN: This is a 51-year-old female who was seen early this morning in [facility], bed 2 with sepsis, left arm cellulitis is currently resolved with chronic lymphedema, breast cancer stage IV, status post bilateral mastectomy, and the patient also with healthcare-associated pneumonia, complete opacification of left hemithorax with a left-sided loculated pleural effusion and progressive dysphagia and dyspepsia, status post thoracentesis by invasive radiology, currently on vancomycin and meropenem with cultures negative. Procalcitonin is elevated at 0.8 patient for bacterial pneumonia. We will repeat procalcitonin. We will order a vancomycin trough level. The patient received vancomycin at 10:45 and we will order a vancomycin trough level at 9:45 tomorrow morning. We will follow closely with you. The patient also has a chest x-ray today, it was read by Dr. Mauricio Fernandes, near complete opacification of the left lung due to loculated pleural effusions, findings are unchanged. We will follow with you. Arthur Rodriguez MD
[2017-06-14 00:58] LABS: TOTAL PROTEIN PLEURAL FLUID 3.1 g/dL
[2017-06-14] MEDS: Meropenem IV 1 gm in NS 50 ML IVPB SCH (01:45)
[2017-06-14] MEDS: Vancomycin 1gm in NS 250ml 1 GM/250 ML BAG IVPB SCH ×3 (02:28→23:40)
[2017-06-14 08:41] LABS: BASO # 0.07 K/mm3 (0.0-2.0); BASO % 0.2 % (0.0-3.0); GRAN # 31.08 (1.4-6.5); GRAN % 92.6 % (50.0-68.0); LYMPH # 0.9 (1.2-3.4); LYMPH % 2.8 % (22.0-35.0); MEAN CORPUSCULAR HEMOGLOBIN 26.8 pg (25.0-35.0); MEAN CORPUSCULAR HGB CONC 30.8 g/dl (31.0-37.0); MONO # 1.5 (0.1-0.6); MONO % 4.4 % (1.0-6.0); RBC 3.99 10^6/uL (3.5-6.1); RED CELL DISTRIBUTION WIDTH 21.8 % (11.5-14.5)
[2017-06-14 08:48] LABS: HEMOGLOBIN 10.7 g/dL (12.0-16.0)
[2017-06-14 08:49] LABS: WHITE BLOOD COUNT 33.6 10^3/ul (4.5-11.0)
[2017-06-14 09:00] LABS: ALB/GLOB RATIO 1.2 (1.1-1.8); ALBUMIN 3.2 g/dL (3.0-4.8); ALT/SGPT 28 U/L (7-56); AST/SGOT 53 U/L (14-36); BLOOD UREA NITROGEN 10 mg/dL (7-21); CALCIUM 7.7 mg/dL (8.4-10.5); GFR AFRICAN-AMERICAN > 60; GFR NON-AFRICAN AMERICAN > 60
[2017-06-14] MEDS: Dexamethasone 4 mg/1 ml IVP SCH ×2 (09:27→22:34)
[2017-06-14] MEDS: POLYETHYLENE GLYCOL 3350 17 GM/Dose PACKET PO SCH ×3 (09:27→17:20)
[2017-06-14] MEDS: Nystatin 100,000 Units/gm Topical Pow(15 gm) TOP SCH (09:28)
[2017-06-14] MEDS ORDERED: Barium Sulfate for Susp 96% w/w 176g Bottle PR ONE (12:50)
--- NOTE | 2017-06-14 14:26 | CP.PCM.PN ---
<Lary Dodd - Last Filed: 06/14/17 14:23> Subjective - Date & Time of Evaluation Date of Evaluation: 06/14/17 Time of Evaluation: 07:30 - Subjective Subjective: Patient seen and examined at bedside. Patient resting comfortably in bed with no new complaints at this time. No acute events overnight per nursing. Patient says her arm feels much better after PT. She is still having difficulty drinking water and is agreeable to the modified barium swallow study. She has still not had a BM despite the dose of Relistor yesterday. She denies chest pain , SOB, abdominal pain, n/v/d, LE pain/swelling. Objective - Vital Signs/Intake and Output Vital Signs (last 24 hours): Temp Pulse Resp BP Pulse Ox 98.5 F 127 H 17 141/95 H 93 L 06/14/17 12:00 06/14/17 12:00 06/14/17 12:00 06/14/17 12:00 06/14/17 12:00 Intake and Output: 06/14/17 06/14/17 06:59 18:59 Intake Total 575 895 Output Total 250 Balance 325 895 - Medications Medications: Current Medications Albuterol/Ipratropium (Duoneb 3 Mg/0.5 Mg (3 Ml) Ud) 3 ml IH [id number] PRN PRN Reason: Shortness of Breath Darbepoetin Joe (Aranesp) 100 mcg IVP MON [facility] Last Admin: 06/11/17 17:17 Dose: 100 mcg Dexamethasone (Decadron Inj) 4 mg IVP Q12 [facility] Last Admin: 06/14/17 09:27 Dose: 4 mg Famotidine (Pepcid) 40 mg PO HS [facility] Last Admin: 06/13/17 22:49 Dose: 40 mg Heparin Sodium (Porcine) (Heparin) 5,000 units SC Q8 [facility] PRN Reason: Protocol Last Admin: 06/14/17 05:55 Dose: 5,000 units Hydromorphone HCl (Dilaudid) 2 mg IVP Q2H PRN PRN Reason: Pain, moderate (4-7) Last Admin: 06/14/17 11:23 Dose: 2 mg Hydromorphone HCl (Dilaudid) 2 mg IVP Q2H PRN PRN Reason: Pain, moderate (4-7) Sodium Chloride (Sodium Chloride 0.9%) 1,000 mls @ 100 mls/hr IV .Q10H [facility] Last Admin: 06/13/17 10:22 Dose: 100 mls/hr Meropenem (Merrem Iv 1 Gm Premix) 50 mls @ 100 mls/hr IVPB Q8 [facility] PRN Reason: Protocol Stop: 06/19/17 14:01 Last Admin: 06/14/17 01:45 Dose: 100 mls/hr Vancomycin HCl (Vancomycin 1gm) 1 gm in 250 mls @ 167 mls/hr IVPB Q12H [facility] PRN Reason: Protocol Stop: 06/19/17 10:46 Last Admin: 06/14/17 11:08 Dose: 167 mls/hr Potassium Chloride (Potassium Chloride 20 Meq/100 Ml) 20 meq in 100 mls @ 50 mls/hr IVPB Q2H [facility] Stop: 06/14/17 17:14 Nystatin (Nystop Topical Powder) 1 gm TOP DAILY [facility] Last Admin: 06/14/17 09:28 Dose: 1 appl Polyethylene Glycol (Miralax) 17 gm PO BID [facility] Last Admin: 06/14/17 09:46 Dose: Not Given - Labs Labs: 06/14/17 08:30 06/14/17 08:30 PT 13.1 SECONDS (9.4-12.5) H 06/10/17 07:10 INR 1.14 (0.93-1.08) H 06/10/17 07:10 APTT 30.1 Seconds (25.1-36.5) 06/10/17 07:10 - Additional Findings Additional findings: - Constitutional Appears: Non-toxic, No Acute Distress - Head Exam Head Exam: ATRAUMATIC, NORMAL INSPECTION, NORMOCEPHALIC - Eye Exam Eye Exam: EOMI, Normal appearance, PERRL - ENT Exam ENT Exam: Mucous Membranes Moist - Respiratory Exam Respiratory Exam: Clear to Ausculation Bilateral. absent: Accessory Muscle Use , Rales, Rhonchi, Wheezes, Respiratory Distress Additional comments: breath sounds decreased on the left side - Cardiovascular Exam Cardiovascular Exam: Tachycardia, REGULAR RHYTHM, +S1, +S2. absent: Murmur - GI/Abdominal Exam GI & Abdominal Exam: Soft, Normal Bowel Sounds. absent: Distended, Tenderness - Extremities Exam Extremities Exam: Tenderness (LUE ). absent: Calf Tenderness, Pedal Edema Additional comments: Left arm lymphedema, pulses palpable in both arms - Neurological Exam Neurological Exam: Alert, Awake, Oriented x3 - Psychiatric Exam Psychiatric exam: Normal Affect, Normal Mood - Skin Skin Exam: Dry, Intact, Normal Color, Warm Assessment and Plan - Assessment and Plan (Free Text) Assessment: 51 year old female with PMH of metastatic breast CA to lung and bone who was admitted for evaluation and treatment of chest discomfort and dysphagia/ hoarseness of voice. CT chest showed left sided pleural effusion vs possible empyema which was drained 06/11/17. Plan: Dysphagia, Hoarseness of Voice - head CT- No acute findings - soft tissue neck CT- Left clavicular lymphadenopathy. Edema of the left trapezius muscle and surrounding fat. Heterogeneity C7 and T1 vertebrae - barium swallow study done today, will follow up results - pureed with thin liquids recommended per speech - GI consulted (Michael), recs appreciated * possible EGD if anemia improved * pRBCs transfused x2 06/14/17 - ENT consulted (Ledy), recs appreciated Empyema vs pleural effusion - tachycadia, leukocytosis, elevated lactic acid - currently afebrile - blood cultures negative x 2, - urine culture negative - procal elevated at 0.80 (06/10/17) - IVF NS @ 100 - UA not indicative of urinary infection - CT surgery consulted (Dr. Balderrama), recs Pulm consult, IR to diagnostic tap to confirm if empyema; if positive for empyema will likely require thoracotomy; dysphagia/odonophagia likely requires EGD, defer to GI for this * Pleural fluid appeared dark brown and cloudy , awaiting protein and LDH for Light's criteria * follow up CXRs have shown improvement from prior to thoracentesis -IR consilted (Dr. Pool), recs appreciated - Infectious disease consulted, recs appreciated * Currently on Vanc/Merrem - Pulm consulted (Mary Anne), recs appreciated Chest Pain - ACS ruled out - EKG reviewed and appreciated - sinus tachycardia, low voltage QRS, HR 129, Qtc 436; repeat EKG today shows sinus tachy to 139 - trops x3 negative - lipid profile reviewed, elevated TG at 270, HDL low at 30 -A1C 5.4 - CT angiography- No pleural embolism, Bilateral breast implants. Loculated left pleural effusion with surrounding rim raising the possibility of empyema. Small right pleural effusion. Left axillary edema and soft tissue density. Left lower chest wall edema extending into the upper abdomen. Right lung nodules. Mediastinal and left hilar lymph nodes. Compression fractures age indeterminate. - echo shows EF 55-60% Anemia - stable - Hgb low but stable * will follow with H&H - Pt refusing blood transfusion - iron studies: iron 51, TIBC 206, %sat 25, transferrin 147.44, Ferritin 1800 - vit B12 >1000 and folate 5.4 - Heme/Onc (Beckie) consulted, recs appreciated * started Aranesp 100 mg weekly - continue to monitor Rash - continue nystatin Stage IV Breast Cancer - hematology/oncology consulted- appreciate recommendations - prognosis is poor, palliative consulted due to lack of patient insight - per pt, was pending another chemotherapy tx on Sunday06/13/17; will likely need to be deferred given possible empyema -pain control: dilaudid and percocet Lymphedema of LUE -secondary to above -palpable pulses -compression stocking for LUE -elevation - venous duplex normal - arterial doppler: PVR waveforms blunted but discussed with IR and currently ok to observe since she has good pulses -pain control as above Constipation -likely 2/2 chronic opiate use -patient having difficulty tolerating miralax -relestor x1 dose 06/13/17, will monitor for BM Hypokalemia - repleted but remains low, additional potassium ordered - continue to monitor Elevated LFTs - stable - essentially unchanged from admission, continue to monitor - avoid hepatotoxins Disposition: Tele; pending palliative care will re-evaluate since patient was too emotional at first evaluation Ppx: Protonix for GI, Heparin for DVT Patient seen, reviewed, and discussed with attending, Dr. Greer <Christi Greer - Last Filed: 06/14/17 15:04> Objective - Vital Signs/Intake and Output Vital Signs (last 24 hours): Temp Pulse Resp BP Pulse Ox 98.5 F 127 H 17 141/95 H 93 L 06/14/17 12:00 06/14/17 12:00 06/14/17 12:00 06/14/17 12:00 06/14/17 12:00 Intake and Output: 06/14/17 06/14/17 06:59 18:59 Intake Total 575 895 Output Total 250 Balance 325 895 - Medications Medications: Current Medications Albuterol/Ipratropium (Duoneb 3 Mg/0.5 Mg (3 Ml) Ud) 3 ml IH [id number] PRN PRN Reason: Shortness of Breath Darbepoetin Joe (Aranesp) 100 mcg IVP MON [facility] Last Admin: 06/11/17 17:17 Dose: 100 mcg Dexamethasone (Decadron Inj) 4 mg IVP Q12 [facility] Last Admin: 06/14/17 09:27 Dose: 4 mg Famotidine (Pepcid) 40 mg PO HS [facility] Last Admin: 06/13/17 22:49 Dose: 40 mg Heparin Sodium (Porcine) (Heparin) 5,000 units SC Q8 [facility] PRN Reason: Protocol Last Admin: 06/14/17 14:46 Dose: 5,000 units Hydromorphone HCl (Dilaudid) 2 mg IVP Q2H PRN PRN Reason: Pain, moderate (4-7) Last Admin: 06/14/17 14:45 Dose: 2 mg Hydromorphone HCl (Dilaudid) 2 mg IVP Q2H PRN PRN Reason: Pain, moderate (4-7) Sodium Chloride (Sodium Chloride 0.9%) 1,000 mls @ 100 mls/hr IV .Q10H [facility] Last Admin: 06/13/17 10:22 Dose: 100 mls/hr Vancomycin HCl (Vancomycin 1gm) 1 gm in 250 mls @ 167 mls/hr IVPB Q12H [facility] PRN Reason: Protocol Stop: 06/19/17 10:46 Last Admin: 06/14/17 11:08 Dose: 167 mls/hr Potassium Chloride (Potassium Chloride 20 Meq/100 Ml) 20 meq in 100 mls @ 50 mls/hr IVPB Q2H [facility] Stop: 06/14/17 17:14 Last Admin: 06/14/17 14:46 Dose: 50 mls/hr Meropenem/Sodium Chloride (Meropenem 1g/Ns 100ml Ivpb) 1 gm in 100 mls @ 100 mls/hr IVPB Q8 [facility] PRN Reason: Protocol Stop: 06/19/17 14:01 Nystatin (Nystop Topical Powder) 1 gm TOP DAILY [facility] Last Admin: 06/14/17 09:28 Dose: 1 appl Polyethylene Glycol (Miralax) 17 gm PO BID [facility] Last Admin: 06/14/17 09:46 Dose: Not Given - Labs Labs: 06/14/17 08:30 06/14/17 08:30 PT 13.1 SECONDS (9.4-12.5) H 06/10/17 07:10 INR 1.14 (0.93-1.08) H 06/10/17 07:10 APTT 30.1 Seconds (25.1-36.5) 06/10/17 07:10 Attending/Attestation - Attestation I have personally seen and examined this patient.: Yes I have fully participated in the care of the patient.: Yes I have reviewed all pertinent clinical information, including history, physical exam and plan: Yes Notes (Text): 06/14/17 15:03 51 year old female with past medical history of metastatic breast cancer who presented with dysphagia and chest discomfort. CT chest was obtained which showed left sided pleural effusion vs possible empyema. She is s/p thoracocentesis. She is currently on iv antibiotics as per ID. CT surgery and pulmonary are following. GI and ENT are following the patient as well and patient is pending barium swallow study today. Her anemia has improved after prbc transfusion. Will continue to monitor. Will replete and repeat potassium. Continue to monitor LFTs closely. She is on miralax for constipation and also received relistor yesterday. Overall prognosis is poor; palliative evaluation evaluation was appreciated. Christi Greer MD Hospitalist.
--- NOTE | 2017-06-14 15:56 | RAD ---
PROCEDURE: Modified barium video swallow HISTORY: dysphagia COMPARISON: Not available TECHNIQUE: Swallowing of barium mixtures of varying viscosity was monitored fluoroscopically. The procedure was performed by a member of the speech therapy department. Total time of fluoroscopy was 125.0 seconds. FINDINGS: There was no laryngeal penetration or aspiration witnessed during this examination. Please see report from speech therapy for full evaluation. IMPRESSION: No aspiration. Please see report from speech therapy for full evaluation. .
--- NOTE | 2017-06-14 17:01 | CP.PCM.PN ---
Subjective - Date & Time of Evaluation Date of Evaluation: 06/14/17 Time of Evaluation: 11:40 - Subjective Subjective: Still with arm pain but less, no fevers, with occasional shortness of breath. Objective - Vital Signs/Intake and Output Vital Signs (last 24 hours): Temp Pulse Resp BP Pulse Ox 99.2 F 119 H 20 149/99 H 97 06/14/17 08:10 06/14/17 08:10 06/14/17 08:10 06/14/17 08:10 06/14/17 06:00 Intake and Output: 06/14/17 06/14/17 06:59 18:59 Intake Total 575 895 Output Total 250 Balance 325 895 - Medications Medications: Current Medications Albuterol/Ipratropium (Duoneb 3 Mg/0.5 Mg (3 Ml) Ud) 3 ml IH [id number] PRN PRN Reason: Shortness of Breath Darbepoetin Joe (Aranesp) 100 mcg IVP MON [facility] Last Admin: 06/11/17 17:17 Dose: 100 mcg Dexamethasone (Decadron Inj) 4 mg IVP Q12 [facility] Last Admin: 06/14/17 09:27 Dose: 4 mg Famotidine (Pepcid) 40 mg PO HS [facility] Last Admin: 06/13/17 22:49 Dose: 40 mg Heparin Sodium (Porcine) (Heparin) 5,000 units SC Q8 [facility] PRN Reason: Protocol Last Admin: 06/14/17 05:55 Dose: 5,000 units Hydromorphone HCl (Dilaudid) 2 mg IVP Q2H PRN PRN Reason: Pain, moderate (4-7) Last Admin: 06/14/17 08:47 Dose: 2 mg Sodium Chloride (Sodium Chloride 0.9%) 1,000 mls @ 100 mls/hr IV .Q10H [facility] Last Admin: 06/13/17 10:22 Dose: 100 mls/hr Meropenem (Merrem Iv 1 Gm Premix) 50 mls @ 100 mls/hr IVPB Q8 [facility] PRN Reason: Protocol Stop: 06/19/17 14:01 Last Admin: 06/14/17 01:45 Dose: 100 mls/hr Vancomycin HCl (Vancomycin 1gm) 1 gm in 250 mls @ 167 mls/hr IVPB Q12H [facility] PRN Reason: Protocol Stop: 06/19/17 10:46 Last Admin: 06/14/17 02:28 Dose: 167 mls/hr Nystatin (Nystop Topical Powder) 1 gm TOP DAILY [facility] Last Admin: 06/14/17 09:28 Dose: 1 appl Polyethylene Glycol (Miralax) 17 gm PO BID [facility] Last Admin: 06/14/17 09:46 Dose: Not Given - Labs Labs: 06/14/17 08:30 06/14/17 08:30 PT 13.1 SECONDS (9.4-12.5) H 06/10/17 07:10 INR 1.14 (0.93-1.08) H 06/10/17 07:10 APTT 30.1 Seconds (25.1-36.5) 06/10/17 07:10 - Constitutional Appears: Chronically Ill - Head Exam Head Exam: NORMAL INSPECTION - Neck Exam Neck Exam: absent: Meningismus - Respiratory Exam Respiratory Exam: Decreased Breath Sounds - Cardiovascular Exam Cardiovascular Exam: +S1, +S2 - GI/Abdominal Exam GI & Abdominal Exam: Soft. absent: Tenderness - Extremities Exam Additional comments: left arm with swelling Assessment and Plan - Assessment and Plan (Free Text) Plan: Assessment Sepsis due to left arm cellulitis in this patient with chronic lymphedema and left sided HCAP breasst cancer stage 4 S/P bilateral mastectomy S/P chest port placement DM HTN Plan Blood cx are negative; continue Vancomycin and Merrem day 5 up to 7 days of therapy will continue to monitor clinical response overall prognosis is poor
[2017-06-14] MEDS: Sodium Chloride 0.9% 1,000 ML IV SCH ×2 (17:22→22:31)
--- NOTE | 2017-06-14 17:58 | PN ---
DATE: 06/14/2017 SUBJECTIVE: Patient is lying in bed. She remains weak. She continues to have poor appetite due to difficulty swallowing. MEDICATIONS: Include Aranesp 100 mcg IV once a day, Decadron injection 4 mg IV q. 12 hours, Dilaudid 2 mg IV q. 2 hours p.r.n. pain, albuterol inhaler 3 mL q. 6 hours as needed, meropenem 1 g IV q. 8 hours, polyethylene glycol 17 g twice a day, Pepcid 40 mg at bedtime, potassium chloride 20 mEq IV, vancomycin 1 g IV q. 12 hours. OBJECTIVE: VITAL SIGNS: Reveal temperature of 98.5, blood pressure 141/95, and heart rate of 127. HEENT: Reveal sclerae to be white. There is no oral candidiasis. NECK: Supple. CHEST: Reveals distant breath sounds at the left base. HEART: Exam reveals a tachycardia. No murmur. ABDOMEN: Soft, nontender. EXTREMITIES: Show 2+ edema of the left arm. LABORATORY DATA: Revealed white blood cell count 33.6, hemoglobin 10.7, and platelet count of 396,000. Chemistries reveal potassium 3.4. AST 53, ALT 28, and alkaline phosphatase of 130. Culture of pleural effusion shows no growth. IMPRESSION: 1. Stage IV breast cancer with widespread metastasis. 2. Oropharyngeal dysphagia. 3. Loculated pleural effusion. 4. Anemia. 5. Leukocytosis most likely systemic inflammatory response syndrome. RECOMMENDATIONS: 1. Await modified barium swallow. 2. We will defer endoscopy for now given the patient's poor overall condition. Her prognosis is extremely poor. The patient is considering palliative care. Jesus Rodriguez MD [facility]
[2017-06-14] MEDS: Meropenem 1g/NS 100mL IVPB 1 GM/100 ML PIGGYBACK IVPB SCH (22:32)
--- NOTE | 2017-06-15 00:27 | PN ---
DATE: 06/14/2017 PULMONARY PROGRESS NOTE REFERRING PHYSICIAN: Dr. Greer. SUBJECTIVE: Patient is lying in the bed, head at 45 degrees, elevated left upper extremity. Brother is at bedside. Night was unremarkable. Asking if she could be given pain medication every 2 hours because of severe pain. No headache, no rhinitis, no nausea, no vomiting, no diarrhea. OBJECTIVE: GENERAL: Mild distress secondary to pain. VITAL SIGNS: Temperature 98, heart rate 118, respiratory rate is 20, blood pressure 134/89, pulse ox 96% on room air. HEENT: Moist mucous membrane. Crowded airway. NECK: Supple. No JVD. LUNGS: Has decreased breath sound at the left lung. Has a left upper extremity lymphedema. HEART: S1 and S2. Tachy. ABDOMEN: Soft, nontender, no organomegaly. EXTREMITIES: No edema of the lower extremity. NEUROLOGICAL: Awake, alert, follows simple command. MEDICATIONS: She is on Aricept 100 mcg IV weekly, Decadron 4 mg q. 12 hour, Dilaudid 2 mg q. 2 hours p.r.n., DuoNeb q. 6 hours p.r.n., heparin 5000 units subcu q. 8 hours, meropenem 1 g IV q. 8 hours, MiraLax 17 g twice a day, Pepcid 40 mg daily, IV fluid normal saline 100 mL per hour, vancomycin 1 g IV q. 12 hours. LABORATORY DATA: Shows hemoglobin 10.7, hematocrit 34.7, WBC 33, platelet is 396. Sodium 147, potassium 3.4, chloride 107, bicarbonate 25, BUN 10, creatinine 0.3, glucose 84, calcium is 7.7. Total bili 0.7, AST 43, ALT 28, alk phos is 130, albumin is 3.2. Procalcitonin is 0.36. Microbiology: Pleural fluid, there is no growth. Blood cultures, no growth. Urine, there is no growth. She has a modified barium swallow done today, shows no aspiration. There was no laryngeal penetration or aspiration witnessed during the examination. IMPRESSION AND PLAN: Metastatic breast cancer, recurrent pleural effusion, status post thoracentesis. Has a lymphedema of the left upper extremity, severe pain. Dilaudid has been changed to q. 2 hours. Keep head at 45 degree, bronchodilator, aspiration precaution, elevate left upper extremity over the pillow, physical therapy. Overall, poor prognosis. Gastric and deep venous thrombosis prophylaxis. Thank you and we will follow with you. Jermaine North MD
[2017-06-15] MEDS: Meropenem 1g/NS 100mL IVPB 1 GM/100 ML PIGGYBACK IVPB SCH ×3 (05:08→21:15)
[2017-06-15 08:19] LABS: BASO # 0.07 K/mm3 (0.0-2.0); BASO % 0.2 % (0.0-3.0); GRAN # 29.38 (1.4-6.5); GRAN % 94.5 % (50.0-68.0); LYMPH # 0.2 (1.2-3.4); LYMPH % 0.7 % (22.0-35.0); MEAN CELL VOLUME 87.2 fl (80.0-105.0); MEAN CORPUSCULAR HEMOGLOBIN 26.6 pg (25.0-35.0); MEAN CORPUSCULAR HGB CONC 30.5 g/dl (31.0-37.0); MEAN PLATELET VOLUME 8.8 fl (7.0-11.0); MONO # 1.4 (0.1-0.6); MONO % 4.6 % (1.0-6.0); RBC 4.14 10^6/uL (3.5-6.1); RED CELL DISTRIBUTION WIDTH 22.7 % (11.5-14.5)
[2017-06-15 08:23] LABS: WHITE BLOOD COUNT 31.1 10^3/ul (4.5-11.0)
[2017-06-15 08:28] LABS: ALB/GLOB RATIO 1.2 (1.1-1.8); ALBUMIN 3.1 g/dL (3.0-4.8); ALT/SGPT 24 U/L (7-56); AST/SGOT 55 U/L (14-36); BLOOD UREA NITROGEN 10 mg/dL (7-21); CALCIUM 7.6 mg/dL (8.4-10.5); GFR AFRICAN-AMERICAN > 60; GFR NON-AFRICAN AMERICAN > 60
[2017-06-15] MEDS: POLYETHYLENE GLYCOL 3350 17 GM/Dose PACKET PO SCH ×2 (10:15→17:29)
[2017-06-15] MEDS: Nystatin 100,000 Units/gm Topical Pow(15 gm) TOP SCH (10:15)
[2017-06-15] MEDS: Dexamethasone 4 mg/1 ml IVP SCH ×2 (10:17→21:37)
[2017-06-15] MEDS: Vancomycin 1gm in NS 250ml 1 GM/250 ML BAG IVPB SCH ×2 (10:19→22:09)
--- NOTE | 2017-06-15 13:12 | CP.PCM.PN ---
<Lary Dodd - Last Filed: 06/15/17 13:09> Subjective - Date & Time of Evaluation Date of Evaluation: 06/15/17 Time of Evaluation: 07:30 - Subjective Subjective: Patient seen and examined at bedside. Patient resting comfortably in bed with no new complaints at this time. Patient says her arm pain is improved with PT and she has been up walking around which helps with her buttock pain. Patient has still not had a BM and is requesting an enema. She also feels short of breath which is unchanged since the thoracentesis. Patient's friend is at bedside and says she noticed some mild swelling of the right thigh. Patient denies pain in the area. Patient denies chest pain, dizziness, abdominal pain, n /v/d, LE pain/swelling/numbness. Objective - Vital Signs/Intake and Output Vital Signs (last 24 hours): Temp Pulse Resp BP Pulse Ox 98.3 F 117 H 21 137/59 L 93 L 06/15/17 06:00 06/15/17 06:00 06/15/17 06:00 06/15/17 06:00 06/15/17 06:00 Intake and Output: 06/15/17 06/15/17 06:59 18:59 Intake Total 1726 Output Total 350 Balance 1726 -350 - Medications Medications: Current Medications Albuterol/Ipratropium (Duoneb 3 Mg/0.5 Mg (3 Ml) Ud) 3 ml IH [id number] PRN PRN Reason: Shortness of Breath Darbepoetin Joe (Aranesp) 100 mcg IVP MON [facility] Last Admin: 06/11/17 17:17 Dose: 100 mcg Dexamethasone (Decadron Inj) 4 mg IVP Q12 [facility] Last Admin: 06/15/17 10:17 Dose: 4 mg Famotidine (Pepcid) 40 mg PO HS [facility] Last Admin: 06/14/17 22:34 Dose: 40 mg Heparin Sodium (Porcine) (Heparin) 5,000 units SC Q8 [facility] PRN Reason: Protocol Last Admin: 06/15/17 05:08 Dose: 5,000 units Hydromorphone HCl (Dilaudid) 2 mg IVP Q2H PRN PRN Reason: Pain, moderate (4-7) Last Admin: 06/15/17 11:01 Dose: 2 mg Sodium Chloride (Sodium Chloride 0.9%) 1,000 mls @ 100 mls/hr IV .Q10H [facility] Last Admin: 06/14/17 22:31 Dose: 100 mls/hr Vancomycin HCl (Vancomycin 1gm) 1 gm in 250 mls @ 167 mls/hr IVPB Q12H [facility] PRN Reason: Protocol Stop: 06/19/17 10:46 Last Admin: 06/15/17 10:19 Dose: 167 mls/hr Meropenem/Sodium Chloride (Meropenem 1g/Ns 100ml Ivpb) 1 gm in 100 mls @ 100 mls/hr IVPB Q8 [facility] PRN Reason: Protocol Stop: 06/19/17 14:01 Last Admin: 06/15/17 05:08 Dose: 100 mls/hr Nystatin (Nystop Topical Powder) 1 gm TOP DAILY [facility] Last Admin: 06/15/17 10:15 Dose: 1 appl Polyethylene Glycol (Miralax) 17 gm PO BID [facility] Last Admin: 06/15/17 10:15 Dose: 17 gm - Labs Labs: 06/15/17 08:00 06/15/17 08:00 PT 13.1 SECONDS (9.4-12.5) H 06/10/17 07:10 INR 1.14 (0.93-1.08) H 06/10/17 07:10 APTT 30.1 Seconds (25.1-36.5) 06/10/17 07:10 - Additional Findings Additional findings: - Constitutional Appears: Non-toxic, No Acute Distress - Head Exam Head Exam: ATRAUMATIC, NORMAL INSPECTION, NORMOCEPHALIC - Eye Exam Eye Exam: EOMI, Normal appearance, PERRL - ENT Exam ENT Exam: Mucous Membranes Moist - Respiratory Exam Respiratory Exam: Clear to Ausculation Bilateral. absent: Accessory Muscle Use , Rales, Rhonchi, Wheezes, Respiratory Distress Additional comments: breath sounds L<R - Cardiovascular Exam Cardiovascular Exam: Tachycardia, REGULAR RHYTHM, +S1, +S2. absent: Murmur - GI/Abdominal Exam GI & Abdominal Exam: Soft, Normal Bowel Sounds. absent: Distended, Tenderness - Extremities Exam Extremities Exam: Tenderness (LUE ). absent: Calf Tenderness, Pedal Edema Additional comments: Left arm lymphedema Mild swelling of right thigh - Neurological Exam Neurological Exam: Alert, Awake, Oriented x3 - Psychiatric Exam Psychiatric exam: Normal Affect, Normal Mood - Skin Skin Exam: Dry, Intact, Normal Color, Warm Assessment and Plan - Assessment and Plan (Free Text) Assessment: 51 year old female with PMH of metastatic breast CA to lung and bone who was admitted for evaluation and treatment of chest discomfort and dysphagia/ hoarseness of voice. CT chest showed left sided exudative pleural effusion which was drained 06/11/17. Plan: Dysphagia, Hoarseness of Voice - head CT- No acute findings - soft tissue neck CT- Left clavicular lymphadenopathy. Edema of the left trapezius muscle and surrounding fat. Heterogeneity C7 and T1 vertebrae - barium swallow study showing moderate dysphagia with risk for aspiration - pureed with thin liquids recommended per speech - GI consulted (Michael), recs appreciated * no plan fofr EGD at this time - ENT consulted (Ledy), recs appreciated Exudative pleural effusion - Lights criteria met for exudative effusion - CT surgery consulted (Dr. Balderrama), recs Pulm consult, IR to diagnostic tap to confirm if empyema; if positive for empyema will likely require thoracotomy; dysphagia/odonophagia likely requires EGD, defer to GI for this * Pleural fluid appeared dark brown and cloudy * Light's criteria: * Pleural/serum protein: 0.53 * Pleural/serum LDH: 1.2 * Pleural LDH: 1360 * Pleural pH: 10 * follow up CXRs have shown improvement from prior to thoracentesis -IR consilted (Dr. Pool), recs appreciated - Infectious disease consulted, recs appreciated * Currently on Vanc/Merrem - Pulm consulted (Mary Anne), recs appreciated * Patient remains SOB, help appreciated Chest Pain - ACS ruled out - EKG reviewed and appreciated - sinus tachycardia, low voltage QRS, HR 129, Qtc 436; repeat EKG today shows sinus tachy to 139 - trops x3 negative - lipid profile reviewed, elevated TG at 270, HDL low at 30 -A1C 5.4 - CT angiography- No pleural embolism, Bilateral breast implants. Loculated left pleural effusion with surrounding rim raising the possibility of empyema. Small right pleural effusion. Left axillary edema and soft tissue density. Left lower chest wall edema extending into the upper abdomen. Right lung nodules. Mediastinal and left hilar lymph nodes. Compression fractures age indeterminate. - echo shows EF 55-60% Anemia - stable - pRBCs transfused x2 06/14/17 - iron studies: iron 51, TIBC 206, %sat 25, transferrin 147.44, Ferritin 1800 - vit B12 >1000 and folate 5.4 - Heme/Onc (Beckie) consulted, recs appreciated * started Aranesp 100 mg weekly - continue to monitor Rash - continue nystatin Stage IV Breast Cancer - hematology/oncology consulted- appreciate recommendations - prognosis is poor, palliative consulted due to lack of patient insight -pain control: dilaudid and percocet Lymphedema of LUE -secondary to above -palpable pulses -compression stocking for LUE -elevation - venous duplex normal - arterial doppler: PVR waveforms blunted but discussed with IR and currently ok to observe since she has good pulses -pain control as above -continue PT Constipation -likely 2/2 chronic opiate use -patient having difficulty tolerating miralax -consider daily relestor -will give enema today and monitor for BM Hypokalemia - repleted but remains low, additional potassium ordered - continue to monitor Elevated LFTs - stable - essentially unchanged from admission, continue to monitor - avoid hepatotoxins Disposition: d/c tele today; pending palliative care will re-evaluate since patient was too emotional at first evaluation Ppx: Protonix for GI, Heparin for DVT Patient seen, reviewed, and discussed with attending, Dr. Greer <Christi Greer - Last Filed: 06/15/17 14:17> Objective - Vital Signs/Intake and Output Vital Signs (last 24 hours): Temp Pulse Resp BP Pulse Ox 98.8 F 126 H 20 136/95 H 93 L 06/15/17 12:00 06/15/17 12:00 06/15/17 12:00 06/15/17 12:00 06/15/17 06:00 Intake and Output: 06/15/17 06/15/17 06:59 18:59 Intake Total 1726 Output Total 350 Balance 1726 -350 - Medications Medications: Current Medications Albuterol/Ipratropium (Duoneb 3 Mg/0.5 Mg (3 Ml) Ud) 3 ml IH [id number] PRN PRN Reason: Shortness of Breath Darbepoetin Joe (Aranesp) 100 mcg IVP MON [facility] Last Admin: 06/11/17 17:17 Dose: 100 mcg Dexamethasone (Decadron Inj) 4 mg IVP Q12 [facility] Last Admin: 06/15/17 10:17 Dose: 4 mg Famotidine (Pepcid) 40 mg PO HS [facility] Last Admin: 06/14/17 22:34 Dose: 40 mg Heparin Sodium (Porcine) (Heparin) 5,000 units SC Q8 [facility] PRN Reason: Protocol Last Admin: 06/15/17 05:08 Dose: 5,000 units Hydromorphone HCl (Dilaudid) 2 mg IVP Q2H PRN PRN Reason: Pain, moderate (4-7) Last Admin: 06/15/17 11:01 Dose: 2 mg Sodium Chloride (Sodium Chloride 0.9%) 1,000 mls @ 100 mls/hr IV .Q10H [facility] Last Admin: 06/14/17 22:31 Dose: 100 mls/hr Vancomycin HCl (Vancomycin 1gm) 1 gm in 250 mls @ 167 mls/hr IVPB Q12H [facility] PRN Reason: Protocol Stop: 06/19/17 10:46 Last Admin: 06/15/17 10:19 Dose: 167 mls/hr Meropenem/Sodium Chloride (Meropenem 1g/Ns 100ml Ivpb) 1 gm in 100 mls @ 100 mls/hr IVPB Q8 [facility] PRN Reason: Protocol Stop: 06/19/17 14:01 Last Admin: 06/15/17 05:08 Dose: 100 mls/hr Potassium Chloride (Potassium Chloride 20 Meq/100 Ml) 20 meq in 100 mls @ 50 mls/hr IVPB Q2H [facility] Stop: 06/15/17 17:44 Nystatin (Nystop Topical Powder) 1 gm TOP DAILY [facility] Last Admin: 06/15/17 10:15 Dose: 1 appl Polyethylene Glycol (Miralax) 17 gm PO BID [facility] Last Admin: 06/15/17 10:15 Dose: 17 gm - Labs Labs: 06/15/17 08:00 06/15/17 08:00 PT 13.1 SECONDS (9.4-12.5) H 06/10/17 07:10 INR 1.14 (0.93-1.08) H 06/10/17 07:10 APTT 30.1 Seconds (25.1-36.5) 06/10/17 07:10 Attending/Attestation - Attestation I have personally seen and examined this patient.: Yes I have fully participated in the care of the patient.: Yes I have reviewed all pertinent clinical information, including history, physical exam and plan: Yes Notes (Text): 06/15/17 14:15 51 year old female with past medical history of metastatic breast cancer who presented with dysphagia and chest discomfort. CT chest showed left sided pleural effusion vs possible empyema. She is s/p thoracocentesis. Continue with iv antibiotics as per ID. CT surgery and pulmonary are following. She was evaluated by GI and ENT as well. Barium swallow study was reviewed. Her anemia has improved after prbc transfusion. Will continue to monitor. Will replete and repeat potassium. Continue to monitor LFTs closely. She is on miralax for constipation and also received relistor earlier this week. Consider repeat relistor vs enema for today. Overall prognosis is poor; palliative evaluation evaluation was appreciated. Christi Greer MD Hospitalist.
--- NOTE | 2017-06-15 14:06 | CP.PCM.PN ---
Subjective - Date & Time of Evaluation Date of Evaluation: 06/15/17 Time of Evaluation: 11:45 - Subjective Subjective: Left arm is less swollen, no fevers, no SOB at rest currently. Objective - Vital Signs/Intake and Output Vital Signs (last 24 hours): Temp Pulse Resp BP Pulse Ox 98.3 F 117 H 21 137/59 L 93 L 06/15/17 06:00 06/15/17 06:00 06/15/17 06:00 06/15/17 06:00 06/15/17 06:00 Intake and Output: 06/15/17 06/15/17 06:59 18:59 Intake Total 1726 Balance 1726 - Medications Medications: Current Medications Albuterol/Ipratropium (Duoneb 3 Mg/0.5 Mg (3 Ml) Ud) 3 ml IH [id number] PRN PRN Reason: Shortness of Breath Darbepoetin Joe (Aranesp) 100 mcg IVP MON [facility] Last Admin: 06/11/17 17:17 Dose: 100 mcg Dexamethasone (Decadron Inj) 4 mg IVP Q12 [facility] Last Admin: 06/15/17 10:17 Dose: 4 mg Famotidine (Pepcid) 40 mg PO HS [facility] Last Admin: 06/14/17 22:34 Dose: 40 mg Heparin Sodium (Porcine) (Heparin) 5,000 units SC Q8 [facility] PRN Reason: Protocol Last Admin: 06/15/17 05:08 Dose: 5,000 units Hydromorphone HCl (Dilaudid) 2 mg IVP Q2H PRN PRN Reason: Pain, moderate (4-7) Last Admin: 06/15/17 11:01 Dose: 2 mg Sodium Chloride (Sodium Chloride 0.9%) 1,000 mls @ 100 mls/hr IV .Q10H [facility] Last Admin: 06/14/17 22:31 Dose: 100 mls/hr Vancomycin HCl (Vancomycin 1gm) 1 gm in 250 mls @ 167 mls/hr IVPB Q12H [facility] PRN Reason: Protocol Stop: 06/19/17 10:46 Last Admin: 06/15/17 10:19 Dose: 167 mls/hr Meropenem/Sodium Chloride (Meropenem 1g/Ns 100ml Ivpb) 1 gm in 100 mls @ 100 mls/hr IVPB Q8 [facility] PRN Reason: Protocol Stop: 06/19/17 14:01 Last Admin: 06/15/17 05:08 Dose: 100 mls/hr Nystatin (Nystop Topical Powder) 1 gm TOP DAILY [facility] Last Admin: 06/15/17 10:15 Dose: 1 appl Polyethylene Glycol (Miralax) 17 gm PO BID [facility] Last Admin: 06/15/17 10:15 Dose: 17 gm - Labs Labs: 06/15/17 08:00 06/15/17 08:00 PT 13.1 SECONDS (9.4-12.5) H 06/10/17 07:10 INR 1.14 (0.93-1.08) H 06/10/17 07:10 APTT 30.1 Seconds (25.1-36.5) 06/10/17 07:10 - Constitutional Appears: Chronically Ill - Head Exam Head Exam: NORMAL INSPECTION - Respiratory Exam Respiratory Exam: Decreased Breath Sounds - Cardiovascular Exam Cardiovascular Exam: +S1, +S2 - GI/Abdominal Exam GI & Abdominal Exam: Soft. absent: Tenderness - Extremities Exam Additional comments: left arm swelling with sleeve in place Assessment and Plan - Assessment and Plan (Free Text) Plan: Assessment Sepsis due to left arm cellulitis in this patient with chronic lymphedema and left sided HCAP breasst cancer stage 4 S/P bilateral mastectomy S/P chest port placement DM HTN Plan Blood cx are negative; continue Vancomycin and Merrem day 6 up to 7 days of therapy will continue to monitor clinical response overall prognosis is poor
--- NOTE | 2017-06-16 00:47 | PN ---
DATE: 06/15/2017 PULMONARY PROGRESS NOTE REFERRING PHYSICIAN: Dr. Greer. SUBJECTIVE: She is lying in the bed, mother is at bedside, head at 45 degrees, able to move left upper extremity with the help of right hand, getting Dilaudid q. 2 hour, breathing ease with occasional shortness of breath on minimal exertion. No nausea, no vomiting, no diarrhea. No leg pain or leg swelling. OBJECTIVE: PHYSICAL EXAMINATION: GENERAL: In no acute distress. VITAL SIGNS: Temperature is 98, heart rate is 122, respiratory rate is 20, blood pressure 138/98, pulse ox 96% on nasal cannula. HEENT: Moist mucous membrane. Crowded airway. NECK: Supple. No JVD. He has a significant lymphedema of the left upper extremity, and because of that still cannot lift that much. LUNGS: Decreased breath sounds at the left lung. HEART: S1 and S2. Tachycardic. ABDOMEN: Soft, nontender. No organomegaly. EXTREMITIES: No edema of the lower extremity. NEUROLOGICALLY: Awake, alert, follows simple commands. MEDICATIONS: She is on Aranesp 100 mcg weekly, Decadron 4 mg q. 12 hour, Dilaudid 2 mg q. 2 hours p.r.n., DuoNeb q. 6 hours p.r.n., heparin 5000 units subcu q. 8 hours, meropenem is 1 g IV q. 8 hours, MiraLax 17 g twice a day, Pepcid 40 mg daily, IV fluid normal saline 100 mL per hour, vancomycin 1 g IV q. 12 hours. LABORATORY DATA: Shows hemoglobin 11.0, hematocrit 36.1, WBC 31,000, platelet is 398. Sodium 145, potassium 3.5, chloride 107, bicarbonate 26, BUN 10, creatinine 0.4, glucose 90, calcium is 7.6. AST 55, ALT 24, alkaline phosphatase is 162, albumin is 3.1. IMPRESSION AND PLAN: Metastatic breast cancer, recurrent pleural effusion, status post thoracentesis, and lymphedema of the left upper extremity with chronic pain. Spoke to the patient and her mother at bedside. All the questions answered. Continue pain management, keep head at 45 degrees, incentive spirometer, bronchodilator, antibiotics as per Infectious Disease. Gastric prophylaxis and deep venous thrombosis prophylaxis. Physical therapy, especially draining left upper extremity lymphedema. Continue supportive care. Thank you and we will follow with you. Jermaine North MD
[2017-06-16] MEDS: Meropenem 1g/NS 100mL IVPB 1 GM/100 ML PIGGYBACK IVPB SCH ×3 (05:04→21:36)
[2017-06-16] MEDS: Sodium Chloride 0.9% 1,000 ML IV SCH ×2 (05:05→09:53)
[2017-06-16 06:29] LABS: ALB/GLOB RATIO 1.1 (1.1-1.8); ALBUMIN 2.8 g/dL (3.0-4.8); ALT/SGPT 25 U/L (7-56); AST/SGOT 48 U/L (14-36); BLOOD UREA NITROGEN 8 mg/dL (7-21); CALCIUM 7.4 mg/dL (8.4-10.5); GFR AFRICAN-AMERICAN > 60; GFR NON-AFRICAN AMERICAN > 60
[2017-06-16 07:43] LABS: HEMOGLOBIN 10.2 g/dL (12.0-16.0); MEAN CELL VOLUME 88.1 fl (80.0-105.0); MEAN CORPUSCULAR HEMOGLOBIN 26.5 pg (25.0-35.0); MEAN CORPUSCULAR HGB CONC 30.1 g/dl (31.0-37.0); MEAN PLATELET VOLUME 9.3 fl (7.0-11.0); PLATELET COUNT 413 10^3/uL (120.0-450.0); RBC 3.85 10^6/uL (3.5-6.1); RED CELL DISTRIBUTION WIDTH 23.1 % (11.5-14.5)
[2017-06-16 07:44] LABS: WHITE BLOOD COUNT 26.8 10^3/ul (4.5-11.0)
[2017-06-16] MEDS: Dexamethasone 4 mg/1 ml IVP SCH ×3 (09:45→21:31)
[2017-06-16] MEDS: POLYETHYLENE GLYCOL 3350 17 GM/Dose PACKET PO SCH ×3 (09:48→17:27)
[2017-06-16] MEDS: Nystatin 100,000 Units/gm Topical Pow(15 gm) TOP SCH (09:48)
[2017-06-16] MEDS: Vancomycin 1gm in NS 250ml 1 GM/250 ML BAG IVPB SCH ×2 (09:56→22:46)
--- NOTE | 2017-06-16 15:35 | CP.PCM.PN ---
<Lary Dodd - Last Filed: 06/16/17 15:30> Subjective - Date & Time of Evaluation Date of Evaluation: 06/16/17 Time of Evaluation: 15:31 - Subjective Subjective: Patient seen and examined at bedside. Patient resting comfortably in bed with no new complaints at this time. Patient asking about her bandage from the thoracentesis and when it can come off. I told her I would change it and check for any leakage, and if no leakage we could take it off. She is also still not having a BM but is feeling not ready for the enema per nursing. She is still having mild arm/chest/back pain that is controlled with dilaudid, as well as dysphagia. Patient knows she is at risk for aspiration and is being careful with drinking water. Patient otherwise denies dizziness, abdominal pain, n/v/d, LE pain/swelling/numbness. Objective - Vital Signs/Intake and Output Vital Signs (last 24 hours): Temp Pulse Resp BP Pulse Ox 99.6 F 116 H 18 127/85 96 06/16/17 06:00 06/16/17 06:00 06/16/17 06:00 06/16/17 06:00 06/16/17 06:00 Intake and Output: 06/16/17 06/16/17 06:59 18:59 Intake Total 480 Balance 480 - Medications Medications: Current Medications Albuterol/Ipratropium (Duoneb 3 Mg/0.5 Mg (3 Ml) Ud) 3 ml IH [id number] PRN PRN Reason: Shortness of Breath Darbepoetin Joe (Aranesp) 100 mcg IVP MON [facility] Last Admin: 06/11/17 17:17 Dose: 100 mcg Dexamethasone (Decadron Inj) 2 mg IVP Q12 [facility] Famotidine (Pepcid) 40 mg PO HS [facility] Last Admin: 06/15/17 21:26 Dose: 40 mg Heparin Sodium (Porcine) (Heparin) 5,000 units SC Q8 [facility] PRN Reason: Protocol Last Admin: 06/16/17 14:34 Dose: 5,000 units Hydromorphone HCl (Dilaudid) 2 mg IVP Q3H PRN PRN Reason: Pain, moderate (4-7) Sodium Chloride (Sodium Chloride 0.9%) 1,000 mls @ 100 mls/hr IV .Q10H [facility] Last Admin: 06/16/17 09:53 Dose: 100 mls/hr Vancomycin HCl (Vancomycin 1gm) 1 gm in 250 mls @ 167 mls/hr IVPB Q12H [facility] PRN Reason: Protocol Stop: 06/19/17 10:46 Last Admin: 06/16/17 09:56 Dose: 167 mls/hr Meropenem/Sodium Chloride (Meropenem 1g/Ns 100ml Ivpb) 1 gm in 100 mls @ 100 mls/hr IVPB Q8 [facility]I PRN Reason: Protocol Stop: 06/19/17 14:01 Last Admin: 06/16/17 14:40 Dose: 100 mls/hr Methylnaltrexone [place] (Relistor) 8 mg SC DAILY [facility] Nystatin (Nystop Topical Powder) 1 gm TOP DAILY [facility] Last Admin: 06/16/17 09:48 Dose: 1 appl Polyethylene Glycol (Miralax) 17 gm PO BID [facility] Last Admin: 06/16/17 10:01 Dose: Not Given - Labs Labs: 06/16/17 05:50 06/16/17 05:55 PT 13.1 SECONDS (9.4-12.5) H 06/10/17 07:10 INR 1.14 (0.93-1.08) H 06/10/17 07:10 APTT 30.1 Seconds (25.1-36.5) 06/10/17 07:10 - Additional Findings Additional findings: - Constitutional Appears: Non-toxic, No Acute Distress - Head Exam Head Exam: ATRAUMATIC, NORMAL INSPECTION, NORMOCEPHALIC - Eye Exam Eye Exam: EOMI, Normal appearance, PERRL - ENT Exam ENT Exam: Mucous Membranes Moist - Respiratory Exam Respiratory Exam: Clear to Ausculation Bilateral. absent: Accessory Muscle Use , Rales, Rhonchi, Wheezes, Respiratory Distress Additional comments: breath sounds L<R - Cardiovascular Exam Cardiovascular Exam: Tachycardia, REGULAR RHYTHM, +S1, +S2. absent: Murmur - GI/Abdominal Exam GI & Abdominal Exam: Soft, Normal Bowel Sounds. absent: Distended, Tenderness - Extremities Exam Extremities Exam: Tenderness (LUE ). absent: Calf Tenderness, Pedal Edema Additional comments: Left arm lymphedema Mild swelling of right thigh - Neurological Exam Neurological Exam: Alert, Awake, Oriented x3 - Psychiatric Exam Psychiatric exam: Normal Affect, Normal Mood - Skin Skin Exam: Dry, Intact, Normal Color, Warm Assessment and Plan - Assessment and Plan (Free Text) Assessment: 51 year old female with PMH of metastatic breast CA to lung and bone who was admitted for evaluation and treatment of chest discomfort and dysphagia/ hoarseness of voice. CT chest showed left sided exudative pleural effusion which was drained 06/11/17. Plan: Dysphagia, Hoarseness of Voice - head CT- No acute findings - soft tissue neck CT- Left clavicular lymphadenopathy. Edema of the left trapezius muscle and surrounding fat. Heterogeneity C7 and T1 vertebrae - barium swallow study showing moderate dysphagia with risk for aspiration - pureed with thin liquids recommended per speech - GI consulted (Michael), recs appreciated * no plan for EGD at this time - ENT consulted (Ledy), recs appreciated -Will taper off decadron Exudative pleural effusion - Lights criteria met for exudative effusion - CT surgery consulted (Dr. Balderrama), recs Pulm consult, IR to diagnostic tap to confirm if empyema; if positive for empyema will likely require thoracotomy; dysphagia/odonophagia likely requires EGD, defer to GI for this * Pleural fluid appeared dark brown and cloudy * Light's criteria: * Pleural/serum protein: 0.53 * Pleural/serum LDH: 1.2 * Pleural LDH: 1360 * Pleural pH: 10 * follow up CXRs have shown improvement from prior to thoracentesis -IR consilted (Dr. Pool), recs appreciated - Infectious disease consulted, recs appreciated * Currently on Vanc/Merrem, patient does not need further antibiotics upon discharge which will likely be tomorrow - Pulm consulted (Mary Anne), recs appreciated * Patient remains SOB, help appreciated * recommends tapering off of decadron - will decrease to 2 mg tonight Chest Pain - ACS ruled out - EKG reviewed and appreciated - sinus tachycardia, low voltage QRS, HR 129, Qtc 436; repeat EKG today shows sinus tachy to 139 - trops x3 negative - lipid profile reviewed, elevated TG at 270, HDL low at 30 -A1C 5.4 - CT angiography- No pleural embolism, Bilateral breast implants. Loculated left pleural effusion with surrounding rim raising the possibility of empyema. Small right pleural effusion. Left axillary edema and soft tissue density. Left lower chest wall edema extending into the upper abdomen. Right lung nodules. Mediastinal and left hilar lymph nodes. Compression fractures age indeterminate. - echo shows EF 55-60% Anemia - stable - pRBCs transfused x2 06/14/17 - iron studies: iron 51, TIBC 206, %sat 25, transferrin 147.44, Ferritin 1800 - vit B12 >1000 and folate 5.4 - Heme/Onc (Beckie) consulted, recs appreciated * started Aranesp 100 mg weekly - continue to monitor Rash - continue nystatin Stage IV Breast Cancer - hematology/oncology consulted- appreciate recommendations - prognosis is poor, palliative consulted due to lack of patient insight -pain control: dilaudid, will continue percocet at discharge Lymphedema of LUE -secondary to above -palpable pulses -compression stocking for LUE -elevation - venous duplex normal - arterial doppler: PVR waveforms blunted but discussed with IR and currently ok to observe since she has good pulses -pain control as above -continue PT Constipation -likely 2/2 chronic opiate use -patient having difficulty tolerating miralax -daily relestor -will give enema today if patient accepts and monitor for BM Hypokalemia - repleted but remains low, additional potassium ordered - continue to monitor Elevated LFTs - stable - essentially unchanged from admission, continue to monitor - avoid hepatotoxins Ppx: Protonix for GI, Heparin for DVT Patient seen, reviewed, and discussed with attending, Dr. Greer <Christi Greer - Last Filed: 06/16/17 20:47> Objective - Vital Signs/Intake and Output Vital Signs (last 24 hours): Temp Pulse Resp BP Pulse Ox 98.4 F 127 H 19 128/82 95 06/16/17 17:33 06/16/17 17:33 06/16/17 17:33 06/16/17 17:33 06/16/17 17:33 - Medications Medications: Current Medications Albuterol/Ipratropium (Duoneb 3 Mg/0.5 Mg (3 Ml) Ud) 3 ml IH [id number] PRN PRN Reason: Shortness of Breath Darbepoetin Joe (Aranesp) 100 mcg IVP MON [facility] Last Admin: 06/11/17 17:17 Dose: 100 mcg Dexamethasone (Decadron Inj) 2 mg IVP Q12 [facility] Famotidine (Pepcid) 40 mg PO HS [facility] Last Admin: 06/15/17 21:26 Dose: 40 mg Heparin Sodium (Porcine) (Heparin) 5,000 units SC Q8 [facility] PRN Reason: Protocol Last Admin: 06/16/17 14:34 Dose: 5,000 units Hydromorphone HCl (Dilaudid) 2 mg IVP Q3H PRN PRN Reason: Pain, moderate (4-7) Last Admin: 06/16/17 20:03 Dose: 2 mg Sodium Chloride (Sodium Chloride 0.9%) 1,000 mls @ 100 mls/hr IV .Q10H [facility] Last Admin: 06/16/17 09:53 Dose: 100 mls/hr Vancomycin HCl (Vancomycin 1gm) 1 gm in 250 mls @ 167 mls/hr IVPB Q12H [facility] PRN Reason: Protocol Stop: 06/19/17 10:46 Last Admin: 06/16/17 09:56 Dose: 167 mls/hr Meropenem/Sodium Chloride (Meropenem 1g/Ns 100ml Ivpb) 1 gm in 100 mls @ 100 mls/hr IVPB Q8 [facility]I PRN Reason: Protocol Stop: 06/19/17 14:01 Last Admin: 06/16/17 14:40 Dose: 100 mls/hr Methylnaltrexone [place] (Relistor) 8 mg SC DAILY [facility] Nystatin (Nystop Topical Powder) 1 gm TOP DAILY [facility] Last Admin: 06/16/17 09:48 Dose: 1 appl Polyethylene Glycol (Miralax) 17 gm PO BID [facility] Last Admin: 06/16/17 17:27 Dose: 17 gm - Labs Labs: 06/16/17 05:50 06/16/17 05:55 PT 13.1 SECONDS (9.4-12.5) H 06/10/17 07:10 INR 1.14 (0.93-1.08) H 06/10/17 07:10 APTT 30.1 Seconds (25.1-36.5) 06/10/17 07:10 Attending/Attestation - Attestation I have personally seen and examined this patient.: Yes I have fully participated in the care of the patient.: Yes I have reviewed all pertinent clinical information, including history, physical exam and plan: Yes Notes (Text): 06/16/17 20:44 51 year old female with past medical history of metastatic breast cancer who presented with dysphagia and chest discomfort. CT chest showed left sided pleural effusion vs possible empyema. She is s/p thoracocentesis. She was seen by pulmonary and CT surgery. Continue with iv antibiotics as per ID. She was evaluated by GI and ENT as well. Barium swallow study was reviewed. Her anemia has improved after prbc transfusion. Will continue to monitor. Will replete and repeat potassium. Continue to monitor LFTs closely. Leukocytosis is improving. Will give relistor vs enema today for constipation. Will begin to taper dilaudid and decadron for d/c planning. Overall prognosis is poor; palliative evaluation evaluation was appreciated. Christi Greer MD Hospitalist.
--- NOTE | 2017-06-17 00:23 | PN ---
DATE: 06/16/2017 SUBJECTIVE: The patient is in bed, in no acute distress. PHYSICAL EXAMINATION: VITAL SIGNS: Temperature of 98, blood pressure is 120/70, respiratory rate of 16. HEENT: Unremarkable. NECK: Supple. LUNGS: Have decreased breath sounds. HEART: Normal S1 and S2. ABDOMEN: Soft and nontender. LABORATORY DATA: Reveals a white count of 26,000, hemoglobin of 10, platelets of 430. BUN of 8 and creatinine of 0.4. Procalcitonin is 0.36. Serology is negative. Microbiology, no growth. ASSESSMENT AND PLAN: A 51-year-old female with sepsis, with left arm cellulitis, chronic lymphedema,left-sided health-care associated pneumonia, breast cancer, lateral mastectomy. Cultures negative, today is day #7 of vancomycin and meropenem. The patient's procalcitonin is noted to be negative. Concern about the persistent leukocytosis. We will enquire Neupogen, although the patient is on Decadron at this time, on vanco and meropenem. Arthur Rodriguez MD
--- NOTE | 2017-06-17 03:51 | PN ---
DATE: 06/16/2017 REFERRING PHYSICIAN: Dr. Greer. SUBJECTIVE: She is lying in the bed, head at 45 degrees. Family is at bedside. Night was unremarkable. No cough. No sputum production. Still has a left-sided chest and a left upper extremity lymphedema and pain. No nausea, no vomiting, no diarrhea. No leg pain, no leg swelling. OBJECTIVE: GENERAL: In no acute distress. VITAL SIGNS: Temperature is 98, heart rate is 120, respiratory rate is 20, blood pressure 128/82, pulse ox 95% room air. HEENT: Moist mucous membranes. Crowded airway. NECK: Supple. No JVD. LUNGS: Has a decreased breath on the left lung. HEART: S1, S2. ABDOMEN: Soft, nontender, no organomegaly. EXTREMITIES: Left upper extremity has lymphedema. NEUROLOGIC: Awake, alert, follows simple commands. MEDICATIONS: She is on Aranesp 100 mcg IV weekly, Decadron 2 mg q.2h., Dilaudid 2 mg IV q. 3 hours p.r.n., DuoNeb q.6h. p.r.n., heparin 5000 units subcu q.8h., meropenem 1 g IV q.8h., MiraLax 17 g twice a day, Pepcid 40 mg at bedtime, methylnaltrexone 8 mg subcu daily, IV fluid normal saline 100 mL per hour, vancomycin 1 g IV q. 12 hours. LABORATORY DATA: Shows hemoglobin 10.2, hematocrit 33.9, WBC 26.8, platelet is 413. Sodium 147, potassium 3.1, chloride 106, bicarbonate 26, BUN 8, creatinine 0.4, glucose 86, calcium is 7.4, AST 48, ALT 25, alk phos is 121. Albumin is 2.8. Microbiology; pleural fluid, so far there is no growth. IMPRESSION AND PLAN: Metastatic breast cancer, recurrent pleural effusion - status post thoracentesis, left upper extremity lymphedema, chronic pain syndrome. Spoke to the patient and family at bedside. All the questions answered. Spoke about prognosis and future expectation. Seems like the patient and family has no understanding of the disease and prognosis. We should get Palliative consult and also Oncology need to speak to the patient about prognosis and expectation. For now, continue supportive care, bronchodilator, pain management, antibiotics. Spoke to medical coordinator pesticide use. May taper off steroids. From a pulmonary point of view, does not need steroids. Thank you and we will follow with you. Jermaine North MD
[2017-06-17] MEDS: Meropenem 1g/NS 100mL IVPB 1 GM/100 ML PIGGYBACK IVPB SCH ×2 (06:00→14:21)
[2017-06-17 07:45] LABS: BASO # 0.03 K/mm3 (0.0-2.0); BASO % 0.1 % (0.0-3.0); GRAN # 22.54 (1.4-6.5); GRAN % 93.2 % (50.0-68.0); HEMOGLOBIN 10.4 g/dL (12.0-16.0); LYMPH # 0.3 (1.2-3.4); LYMPH % 1.2 % (22.0-35.0); MEAN CELL VOLUME 88.6 fl (80.0-105.0); MEAN CORPUSCULAR HEMOGLOBIN 26.4 pg (25.0-35.0); MEAN CORPUSCULAR HGB CONC 29.8 g/dl (31.0-37.0); MEAN PLATELET VOLUME 9.4 fl (7.0-11.0); MONO # 1.3 (0.1-0.6); MONO % 5.5 % (1.0-6.0); PLATELET COUNT 398 10^3/uL (120.0-450.0); RBC 3.94 10^6/uL (3.5-6.1); RED CELL DISTRIBUTION WIDTH 23.4 % (11.5-14.5); WHITE BLOOD COUNT 24.2 10^3/ul (4.5-11.0)
[2017-06-17 08:36] LABS: ALB/GLOB RATIO 1.1 (1.1-1.8); ALBUMIN 2.8 g/dL (3.0-4.8); ALT/SGPT 30 U/L (7-56); AST/SGOT 53 U/L (14-36); BLOOD UREA NITROGEN 5 mg/dL (7-21); CALCIUM 7.5 mg/dL (8.4-10.5); GFR AFRICAN-AMERICAN > 60; GFR NON-AFRICAN AMERICAN > 60; MAGNESIUM 1.7 mg/dL (1.7-2.2)
[2017-06-17] MEDS: Dexamethasone 4 mg/1 ml IVP SCH ×2 (09:25→21:10)
[2017-06-17] MEDS: POLYETHYLENE GLYCOL 3350 17 GM/Dose PACKET PO SCH ×2 (09:27→17:56)
[2017-06-17] MEDS: Sodium Chloride 0.9% 1,000 ML IV SCH ×3 (09:28→12:14)
[2017-06-17 09:52] LABS: BAND 2 % (0-2); HYPOCHROMIA SLIGHT; LYMPHOCYTE 2 % (22.0-35.0); MONOCYTE 2 % (1.0-6.0); NEUTROPHIL 94 % (50.0-70.0); NUCLEATED RED BLOOD CELL 2 %; PLATELET ESTIMATE NORMAL (NORMAL); POIKILOCYTOSIS SLIGHT
[2017-06-17 09:53] LABS: ANISOCYTOSIS 1+; BURR CELLS SLIGHT; LARGE PLATELETS PRESENT; OVALOCYTES SLIGHT; TEAR DROP CELLS SLIGHT
[2017-06-17] MEDS: Nystatin 100,000 Units/gm Topical Pow(15 gm) TOP SCH (11:05)
[2017-06-17] MEDS: Vancomycin 1gm in NS 250ml 1 GM/250 ML BAG IVPB SCH (11:06)
--- NOTE | 2017-06-17 12:24 | CP.PCM.PN ---
<Lary Dodd - Last Filed: 06/17/17 12:21> Subjective - Date & Time of Evaluation Date of Evaluation: 06/17/17 Time of Evaluation: 07:30 - Subjective Subjective: Patient seen and examined at bedside. No acute events overnight per nursing. Patient resting comfortably in bed with no new complaints at this time. Patient says she had a BM yesterday after having the enema. She is concerned about PT and having this once she is discharged, as well as when she can resume chemotherapy. She denies SOB, abdominal pain, n/v/d, LE pain/swelling/numbness. Objective - Vital Signs/Intake and Output Vital Signs (last 24 hours): Temp Pulse Resp BP Pulse Ox 97.7 F 129 H 20 156/103 H 97 06/17/17 06:00 06/17/17 06:00 06/17/17 06:00 06/17/17 06:00 06/17/17 06:00 Intake and Output: 06/17/17 06/17/17 06:59 18:59 Intake Total 1355 Output Total 1200 Balance 155 - Medications Medications: Current Medications Albuterol/Ipratropium (Duoneb 3 Mg/0.5 Mg (3 Ml) Ud) 3 ml IH [id number] PRN PRN Reason: Shortness of Breath Darbepoetin Joe (Aranesp) 100 mcg IVP MON [facility] Last Admin: 06/11/17 17:17 Dose: 100 mcg Dexamethasone (Decadron Inj) 2 mg IVP Q12 [facility] Last Admin: 06/17/17 09:25 Dose: 2 mg Famotidine (Pepcid) 40 mg PO HS [facility] Last Admin: 06/16/17 21:37 Dose: 40 mg Heparin Sodium (Porcine) (Heparin) 5,000 units SC Q8 [facility] PRN Reason: Protocol Last Admin: 06/17/17 06:06 Dose: 5,000 units Hydromorphone HCl (Dilaudid) 2 mg IVP Q3H PRN PRN Reason: Pain, moderate (4-7) Last Admin: 06/17/17 12:17 Dose: 2 mg Sodium Chloride (Sodium Chloride 0.9%) 1,000 mls @ 100 mls/hr IV .Q10H [facility] Last Admin: 06/17/17 12:14 Dose: 100 mls/hr Vancomycin HCl (Vancomycin 1gm) 1 gm in 250 mls @ 167 mls/hr IVPB Q12H [facility] PRN Reason: Protocol Stop: 06/19/17 10:46 Last Admin: 06/17/17 11:06 Dose: 167 mls/hr Meropenem/Sodium Chloride (Meropenem 1g/Ns 100ml Ivpb) 1 gm in 100 mls @ 100 mls/hr IVPB Q8 [facility] PRN Reason: Protocol Stop: 06/19/17 14:01 Last Admin: 06/17/17 06:00 Dose: 100 mls/hr Potassium Chloride (Potassium Chloride 20 Meq/100 Ml) 20 meq in 100 mls @ 50 mls/hr IVPB Q2H [facility] Stop: 06/17/17 16:59 Last Admin: 06/17/17 11:05 Dose: 50 mls/hr Methylnaltrexone [place] (Relistor) 8 mg SC DAILY [facility] Last Admin: 06/17/17 11:01 Dose: 8 mg Nystatin (Nystop Topical Powder) 1 gm TOP DAILY [facility] Last Admin: 06/17/17 11:05 Dose: 1 appl Polyethylene Glycol (Miralax) 17 gm PO BID [facility] Last Admin: 06/17/17 09:27 Dose: 17 gm - Labs Labs: 06/17/17 07:00 06/17/17 07:00 PT 13.1 SECONDS (9.4-12.5) H 06/10/17 07:10 INR 1.14 (0.93-1.08) H 06/10/17 07:10 APTT 30.1 Seconds (25.1-36.5) 06/10/17 07:10 - Additional Findings Additional findings: - Constitutional Appears: Non-toxic, No Acute Distress - Head Exam Head Exam: ATRAUMATIC, NORMAL INSPECTION, NORMOCEPHALIC - Eye Exam Eye Exam: EOMI, Normal appearance, PERRL - ENT Exam ENT Exam: Mucous Membranes Moist - Respiratory Exam Respiratory Exam: Clear to Ausculation Bilateral. absent: Accessory Muscle Use , Rales, Rhonchi, Wheezes, Respiratory Distress Additional comments: breath sounds L<R - Cardiovascular Exam Cardiovascular Exam: Tachycardia, REGULAR RHYTHM, +S1, +S2. absent: Murmur - GI/Abdominal Exam GI & Abdominal Exam: Soft, Normal Bowel Sounds. absent: Distended, Tenderness - Extremities Exam Extremities Exam: Tenderness (LUE ). absent: Calf Tenderness, Pedal Edema Additional comments: Left arm lymphedema Mild swelling of right thigh - Neurological Exam Neurological Exam: Alert, Awake, Oriented x3 - Psychiatric Exam Psychiatric exam: Normal Affect, Normal Mood - Skin Skin Exam: Dry, Intact, Normal Color, Warm Assessment and Plan - Assessment and Plan (Free Text) Assessment: 51 year old female with PMH of metastatic breast CA to lung and bone who was admitted for evaluation and treatment of chest discomfort and dysphagia/ hoarseness of voice. CT chest showed left sided exudative pleural effusion which was drained 06/11/17. Plan: Disposition: Patient will need to be discharged to [facility] or to home with home physical therapy per PT recommendations. She will need to follow up with Dr. Butts in regards to when chemotherapy can be resumed as well as for pain management which she says she currently gets through Dr. Butts. Will continue to taper decadron and likely stop relistor since patient had a BM. Plan for discharge this week. Dysphagia, Hoarseness of Voice - head CT- No acute findings - soft tissue neck CT- Left clavicular lymphadenopathy. Edema of the left trapezius muscle and surrounding fat. Heterogeneity C7 and T1 vertebrae - barium swallow study showing moderate dysphagia with risk for aspiration - pureed with thin liquids recommended per speech - GI consulted (Michael), recs appreciated * no plan for EGD at this time - ENT consulted (Ledy), recs appreciated -Will taper off decadron Exudative pleural effusion - Lights criteria met for exudative effusion - CT surgery consulted (Dr. Balderrama), recs Pulm consult, IR to diagnostic tap to confirm if empyema; if positive for empyema will likely require thoracotomy; dysphagia/odonophagia likely requires EGD, defer to GI for this * Pleural fluid appeared dark brown and cloudy * Light's criteria: * Pleural/serum protein: 0.53 * Pleural/serum LDH: 1.2 * Pleural LDH: 1360 * Pleural pH: 10 * follow up CXRs have shown improvement from prior to thoracentesis -IR consilted (Dr. Pool), recs appreciated - Infectious disease consulted, recs appreciated * Currently on Vanc/Merrem, patient does not need further antibiotics upon discharge which will likely be tomorrow - Pulm consulted (Mary Anne), recs appreciated * Patient remains SOB, help appreciated * recommends tapering off of decadron - will decrease to 1 mg tonight Chest Pain - ACS ruled out - EKG reviewed and appreciated - sinus tachycardia, low voltage QRS, HR 129, Qtc 436; repeat EKG today shows sinus tachy to 139 - trops x3 negative - lipid profile reviewed, elevated TG at 270, HDL low at 30 -A1C 5.4 - CT angiography- No pleural embolism, Bilateral breast implants. Loculated left pleural effusion with surrounding rim raising the possibility of empyema. Small right pleural effusion. Left axillary edema and soft tissue density. Left lower chest wall edema extending into the upper abdomen. Right lung nodules. Mediastinal and left hilar lymph nodes. Compression fractures age indeterminate. - echo shows EF 55-60% Anemia - stable - pRBCs transfused x2 06/14/17 - iron studies: iron 51, TIBC 206, %sat 25, transferrin 147.44, Ferritin 1800 - vit B12 >1000 and folate 5.4 - Heme/Onc (Beckie) consulted, recs appreciated * started Aranesp 100 mg weekly - continue to monitor Rash - continue nystatin Stage IV Breast Cancer - hematology/oncology consulted- appreciate recommendations - prognosis is poor, palliative consulted due to lack of patient insight -pain control: dilaudid, will continue percocet at discharge Lymphedema of LUE -secondary to above -palpable pulses -compression stocking for LUE -elevation - venous duplex normal - arterial doppler: PVR waveforms blunted but discussed with IR and currently ok to observe since she has good pulses -pain control as above -continue PT Constipation -likely 2/2 chronic opiate use -miralax Hypokalemia - repleted but remains low, additional potassium ordered - continue to monitor Elevated LFTs - stable - essentially unchanged from admission, continue to monitor - avoid hepatotoxins Ppx: Protonix for GI, Heparin for DVT Patient seen, reviewed, and discussed with attending, Dr. Greer <Christi Greer - Last Filed: 06/17/17 13:05> Objective - Vital Signs/Intake and Output Vital Signs (last 24 hours): Temp Pulse Resp BP Pulse Ox 97.7 F 129 H 20 156/103 H 97 06/17/17 06:00 06/17/17 06:00 06/17/17 06:00 06/17/17 06:00 06/17/17 06:00 Intake and Output: 06/17/17 06/17/17 06:59 18:59 Intake Total 1355 Output Total 1200 Balance 155 - Medications Medications: Current Medications Albuterol/Ipratropium (Duoneb 3 Mg/0.5 Mg (3 Ml) Ud) 3 ml IH [id number] PRN PRN Reason: Shortness of Breath Darbepoetin Joe (Aranesp) 100 mcg IVP MON [facility] Last Admin: 06/11/17 17:17 Dose: 100 mcg Dexamethasone (Decadron Inj) 1 mg IVP Q12 [facility] Famotidine (Pepcid) 40 mg PO HS [facility] Last Admin: 06/16/17 21:37 Dose: 40 mg Heparin Sodium (Porcine) (Heparin) 5,000 units SC Q8 [facility] PRN Reason: Protocol Last Admin: 06/17/17 06:06 Dose: 5,000 units Hydromorphone HCl (Dilaudid) 2 mg IVP Q3H PRN PRN Reason: Pain, moderate (4-7) Last Admin: 06/17/17 12:17 Dose: 2 mg Sodium Chloride (Sodium Chloride 0.9%) 1,000 mls @ 100 mls/hr IV .Q10H [facility] Last Admin: 06/17/17 12:14 Dose: 100 mls/hr Vancomycin HCl (Vancomycin 1gm) 1 gm in 250 mls @ 167 mls/hr IVPB Q12H [facility] PRN Reason: Protocol Stop: 06/19/17 10:46 Last Admin: 06/17/17 11:06 Dose: 167 mls/hr Meropenem/Sodium Chloride (Meropenem 1g/Ns 100ml Ivpb) 1 gm in 100 mls @ 100 mls/hr IVPB Q8 [facility] PRN Reason: Protocol Stop: 06/19/17 14:01 Last Admin: 06/17/17 06:00 Dose: 100 mls/hr Potassium Chloride (Potassium Chloride 20 Meq/100 Ml) 20 meq in 100 mls @ 50 mls/hr IVPB Q2H [facility] Stop: 06/17/17 16:59 Last Admin: 06/17/17 11:05 Dose: 50 mls/hr Nystatin (Nystop Topical Powder) 1 gm TOP DAILY [facility] Last Admin: 06/17/17 11:05 Dose: 1 appl Polyethylene Glycol (Miralax) 17 gm PO BID [facility] Last Admin: 06/17/17 09:27 Dose: 17 gm - Labs Labs: 06/17/17 07:00 06/17/17 07:00 PT 13.1 SECONDS (9.4-12.5) H 06/10/17 07:10 INR 1.14 (0.93-1.08) H 06/10/17 07:10 APTT 30.1 Seconds (25.1-36.5) 06/10/17 07:10 Attending/Attestation - Attestation I have personally seen and examined this patient.: Yes I have fully participated in the care of the patient.: Yes I have reviewed all pertinent clinical information, including history, physical exam and plan: Yes Notes (Text): 06/17/17 13:03 51 year old female with past medical history of metastatic breast cancer who presented with dysphagia and chest discomfort. CT chest showed left sided pleural effusion vs possible empyema. She is s/p thoracocentesis. She was seen by pulmonary and CT surgery. Continue with iv antibiotics as per ID. She was evaluated by GI and ENT as well. Barium swallow study was reviewed. Her anemia has improved after prbc transfusion. Will continue to monitor. Will replete and repeat potassium. Continue to monitor LFTs closely. Leukocytosis is improving. Overall prognosis is poor; palliative evaluation evaluation was appreciated. Will request PT follow up as well as heme/onc follow up today for d/c planning. Christi Greer MD Hospitalist.
--- NOTE | 2017-06-17 22:00 | PN ---
DATE: 06/17/2017 SUBJECTIVE: Patient is in bed, in no acute distress, nontoxic. PHYSICAL EXAMINATION: VITAL SIGNS: Temperature is 97, blood pressure is 156/100, respiratory rate 20, heart rate of 120. HEENT: Unremarkable. NECK: Supple. LUNGS: Decreased breath sounds. HEART: Normal S1 and S2. ABDOMEN: Soft, nontender. LABORATORY DATA: Reveals white count is down to 24,200, hemoglobin of 10, platelets of 398. Chemistries reveal BUN of 5 and creatinine of 0.3. Patient's procalcitonin, the last one is 0.36. Urinalysis is noted and serology is noted. HIV is negative. Microbiology reveals the pleural cultures were negative. Blood cultures were negative. Dr. Greer's note is reviewed and Dr. North's note is reviewed. MEDICATIONS: Patient is on Decadron and being tapered off slowly on vancomycin and meropenem. ASSESSMENT AND PLAN: This is a 51-year-old female with sepsis, left arm cellulitis, chronic lymphedema, healthcare associated pneumonia, metastatic breast cancer, bilateral mastectomy. Patient had 8 days of vancomycin and meropenem. Leukocytosis is improving Decadron is being tapered off. We will discontinue the antibiotics. No further antibiotics are necessary. Patient and patient's mother was at the bedside. I have explained that the patient has had adequate antibiotic therapy, will be discontinuing the antibiotics. They understand and agree. Patient has risk for developing nosocomial infections. Arthur Rodriguez MD
--- NOTE | 2017-06-17 22:25 | PN ---
DATE: 06/17/2017 PULMONARY PROGRESS NOTE REFERRING PHYSICIAN: Jermaine Carrion MD. SUBJECTIVE: She is lying in the bed, head at 45 degrees. Night was unremarkable. Mother is bedside. Mother wants her to eat regular diet. There is no much cough, no sputum production. Has a left upper extremity lymphedema with stiffness. No nausea. No vomiting, diarrhea, leg pain, leg swelling. OBJECTIVE: GENERAL: In no acute distress. VITAL SIGNS: Temp is 98, heart rate is 120, respiratory rate is 20, blood pressure 166/103, pulse ox 97% on room air. HEENT: Moist mucous membrane. Crowded airway. NECK: Supple. No JVD. LUNGS: Have decreased breath sounds in the left lung. HEART: S1 and S2. ABDOMEN: Soft, nontender. No organomegaly. EXTREMITIES: No edema of the lower extremities. Left upper extremity has lymphedema. NEUROLOGICAL: Awake and alert. Follows simple command. LABORATORY DATA: Shows hemoglobin 10.4, hematocrit 34.9, WBC 24,000, platelet is 398. Sodium 145, potassium 2.6, chloride 102, bicarbonate 25, BUN 5, creatinine 0.3, glucose 54, calcium is 7.5. AST 53, ALT 30, alk phos is 147, albumin is 2.8. MEDICATIONS: She is on Aranesp 100 mcg IV weekly, Decadron 1 mg q. 12 hours, Dilaudid 2 mg q. 3 hours p.r.n., DuoNeb q. 6 hours, heparin 5000 units subcu q. 8 hours, MiraLax 17 g twice a day, nystatin powder to affected area daily, Pepcid 40 mg daily, IV fluid normal saline 100 mL per hour. IMPRESSION AND PLAN: Metastatic breast cancer, recurrent pleural effusions, status post thoracentesis, left upper extremity lymphedema, chronic pain syndrome, hypokalemia. Spoke to the patient and the patient's mother at bedside. All their questions answered. Mother wishing her daughter to go to subacute. Need to replace potassium. Continue pain management, bronchodilator, incentive spirometer. Overall, poor prognosis. We will follow with you. Jermaine North MD [facility] # [id number]
[2017-06-18] MEDS: Sodium Chloride 0.9% 1,000 ML IV SCH (04:30)
--- NOTE | 2017-06-18 09:39 | PN ---
DATE: 06/15/2017 SUBJECTIVE: The patient is lying in bed. She remains weak. She states that her appetite has improved somewhat, she was able to take some pureed foods this morning. She continues to complain of some shortness of breath and cough. MEDICATIONS: Include; Decadron 4 mg IV q.12 hours, Dilaudid 2 mg IV q.2 hours as needed for pain, DuoNeb inhaler, meropenem 1 g IV q.8 hours, MiraLax 17 g twice a day, nystatin powder 1 g topically daily, Pepcid 40 mg at night and vancomycin 1 g IV q.12 hours. PHYSICAL EXAMINATION: VITAL SIGNS: Reveal temperature of 98.3, blood pressure of 137/59 and heart rate of 117. HEENT: Reveal sclerae to be white. Conjunctivae pale. NECK: Supple. CHEST: Reveal decreased breath sounds at the left base. HEART: Reveals a mild tachycardia. ABDOMEN: Soft and nontender. EXTREMITIES: Show 2+ pitting edema of her left arm. LABORATORY DATA: Reveal white blood cell count 31.1, hemoglobin of 11 and platelet count of 398,000. Chemistries revealed potassium at 3.5, AST 55, ALT 24 and alkaline phosphatase 162. IMPRESSION: 1. Stage IV breast cancer with diffuse metastasis. 2. Loculated left pleural effusion. 3. Oropharyngeal dysphagia. Note; the patient had a modified video barium swallow yesterday, which is negative for aspiration or pooling of food in her hypopharynx. 4. Anemia. 5. Leukocytosis, probable systemic inflammatory response syndrome. RECOMMENDATIONS: 1. Continue pureed diet. 2. Continue supportive care. The patient's prognosis is extremely poor and decision on palliative care is being awaited. Jesus Rodriguez MD
[2017-06-18] MEDS ORDERED: Darbepoetin Alfa 100 mcg/ml Inj IVP SCH (10:00)
[2017-06-18] MEDS: Dexamethasone 4 mg/1 ml IVP SCH (10:18)
[2017-06-18] MEDS: Darbepoetin Alfa 100 mcg/ml Inj IVP SCH (10:20)
[2017-06-18] MEDS: Nystatin 100,000 Units/gm Topical Pow(15 gm) TOP SCH (10:23)
[2017-06-18] MEDS: POLYETHYLENE GLYCOL 3350 17 GM/Dose PACKET PO SCH ×2 (10:23→18:40)
[2017-06-18] MEDS: oxyCODONE 10 mg Immediate Release Tab PO PRN ×2 (13:06→18:39)
[2017-06-18 13:18] LABS: BLOOD UREA NITROGEN 5 mg/dL (7-21); CALCIUM 7.3 mg/dL (8.4-10.5); GFR AFRICAN-AMERICAN > 60; GFR NON-AFRICAN AMERICAN > 60
--- NOTE | 2017-06-18 14:03 | PN ---
DATE: 06/18/2017 REFERRING PHYSICIAN: Dr. Greer. SUBJECTIVE: She is out of bed to chair, elevated left upper extremity, short of breath with exertion. No nausea, no diarrhea. No leg pain or leg swelling. OBJECTIVE GENERAL: In no acute distress. VITAL SIGNS: Temperature is 98, heart rate is 97, respiratory rate is 20, blood pressure 133/91, pulse ox 97% on room air. HEENT: Moist mucous membrane. Crowded airway. NECK: Supple. No JVD. LUNGS: Have decreased breath sounds at the left lung. HEART: S1 and S2. ABDOMEN: Soft, nontender. No organomegaly. EXTREMITIES: No edema. There is significant lymphedema of the left upper extremity. NEUROLOGICALLY: Awake, alert, follows simple commands. MEDICATIONS: She is on Aranesp 100 mcg weekly, also getting Decadron 1 mg q. 12 hours, Dilaudid 2 mg q. 3 hours p.r.n., DuoNeb q. 6 hours p.r.n., aspirin weight based protocol, MiraLax 17 g twice a day, nystatin powder to affected area daily, Pepcid 40 mg at bedtime. LABORATORY DATA: Shows no new lab is available since yesterday. IMPRESSION AND PLAN: Metastatic breast cancer with recurrent pleural effusions, requiring thoracentesis; left upper extremity lymphedema; chronic pain syndrome; hypokalemia. Pulmonary point of view, doing okay. I spoke to the patient, mother, and sister at bedside. All their questions answered. Continue therapy. Keep left upper extremity elevated, incentive spirometer, bronchodilator, pain management. Overall, poor prognosis. May benefit with the therapy. We will order electrolytes for today to assure the stability of potassium. Thank you and we will follow with you. Jermaine North MD
[2017-06-18] MEDS: Potassium Chloride 40 mEq/30 ml LIQ UD PO ONE ×2 (14:25→14:42)
--- NOTE | 2017-06-18 14:25 | CP.PCM.PN ---
<Enzo Lieberman - Last Filed: 06/18/17 14:11> Subjective - Date & Time of Evaluation Date of Evaluation: 06/18/17 Time of Evaluation: 07:50 - Subjective Subjective: Medicine Progress note. Dr. Major Pt seen and examined at bedside. No acute events overnight. No new complaints. Still c/o left back, Right hip pain. Denies F/C. No CP. Mild SOB after she obtains physical therapy. Decreased appetite. Objective - Vital Signs/Intake and Output Vital Signs (last 24 hours): Temp Pulse Resp BP Pulse Ox 98.5 F 97 H 18 133/91 H 97 06/18/17 08:39 06/18/17 08:39 06/18/17 08:39 06/18/17 08:39 06/18/17 08:39 Intake and Output: 06/18/17 06/18/17 06:59 18:59 Intake Total 1330 Output Total 900 Balance 430 - Medications Medications: Current Medications Albuterol/Ipratropium (Duoneb 3 Mg/0.5 Mg (3 Ml) Ud) 3 ml IH [id number] PRN PRN Reason: Shortness of Breath Darbepoetin Joe (Aranesp) 100 mcg IVP MON [facility] Last Admin: 06/18/17 10:20 Dose: 100 mcg Dexamethasone (Decadron) 1 mg PO BID [facility] Docusate Sodium (Colace) 100 mg PO DAILY [facility] Famotidine (Pepcid) 40 mg PO HS [facility] Last Admin: 06/17/17 21:12 Dose: 40 mg Fentanyl (Duragesic) 1 patch TD Q72H [facility] Last Admin: 06/18/17 13:05 Dose: 1 patch Heparin Sodium (Porcine) (Heparin) 5,000 units SC Q8 [facility] PRN Reason: Protocol Last Admin: 06/18/17 06:24 Dose: 5,000 units Potassium Chloride (Potassium Chloride 10 Meq/100 Ml) 10 meq in 100 mls @ 50 mls/hr IVPB ONCE ONE Stop: 06/18/17 15:27 Potassium Chloride (Potassium Chloride 10 Meq/100 Ml) 10 meq in 100 mls @ 50 mls/hr IVPB ONCE ONE Stop: 06/18/17 16:29 Nystatin (Nystop Topical Powder) 1 gm TOP DAILY [facility] Last Admin: 02/05/18 10:23 Dose: 1 appl Oxycodone HCl (Oxycodone Immediate Release Tab) 10 mg PO Q6H PRN PRN Reason: Pain, moderate (4-7) Last Admin: 06/18/17 13:06 Dose: 10 mg Polyethylene Glycol (Miralax) 17 gm PO BID [facility] Last Admin: 06/18/17 10:23 Dose: 17 gm Potassium Chloride (Potassium Chloride Oral Soln) 40 meq PO ONCE ONE Stop: 06/18/17 17:31 - Labs Labs: 06/17/17 07:00 06/18/17 12:35 PT 13.1 SECONDS (9.4-12.5) H 06/10/17 07:10 INR 1.14 (0.93-1.08) H 06/10/17 07:10 APTT 30.1 Seconds (25.1-36.5) 06/10/17 07:10 - Constitutional Appears: Non-toxic, No Acute Distress, Older Than Stated Age, Chronically Ill - Head Exam Head Exam: ATRAUMATIC, NORMAL INSPECTION, NORMOCEPHALIC - Eye Exam Eye Exam: EOMI, Normal appearance - ENT Exam ENT Exam: Mucous Membranes Moist - Respiratory Exam Respiratory Exam: Decreased Breath Sounds (left sided decreased breath sounds), NORMAL BREATHING PATTERN. absent: Wheezes - Cardiovascular Exam Cardiovascular Exam: RRR. absent: JVD - GI/Abdominal Exam GI & Abdominal Exam: Soft. absent: Distended, Firm, Guarding, Rigid, Tenderness - Extremities Exam Extremities Exam: Normal Inspection. absent: Calf Tenderness - Neurological Exam Neurological Exam: Alert, Awake, Oriented x3 - Skin Skin Exam: Dry, Intact, Normal Color, Warm Assessment and Plan - Assessment and Plan (Free Text) Assessment: 51yo F with PMH of metastatic breast CA to lung and bone who was admitted for evaluation and treatment of chest discomfort and dysphagia/hoarseness of voice. Disposition: Discharge pending [facility] acceptance. Dr. Butts to discuss treatment options with the patient today and she will continue f/u as out-patient. Transition to PO meds. D/C Tele. Advance to pureed and thin liquids. Encourage diet 1. Dysphagia, Hoarseness of Voice - head CT- No acute findings - soft tissue neck CT- Left clavicular lymphadenopathy. Edema of the left trapezius muscle and surrounding fat. Heterogeneity C7 and T1 vertebrae - barium swallow study showing moderate dysphagia with risk for aspiration - tolerating pureed with thin liquids as recommended per speech - GI consulted (Michael), recs appreciated * no plan for EGD at this time - ENT consulted (Ledy), recs appreciated -Will taper off decadron: 1mg PO BID starting today. 2. Exudative pleural effusion - Lights criteria met for exudative effusion - CT surgery consulted (Dr. Balderrama), -No plans from CT surgery standpoint at this time. - Diagnostic Thoracenthesis on 06/11 by IR - Pleural fluid appeared dark brown and cloudy - Light's criteria: * Pleural/serum protein: 0.53 * Pleural/serum LDH: 1.2 * Pleural LDH: 1360 * Pleural pH: 10 - Infectious disease consulted, recs appreciated * Completed vanc/merrem. No need for continuing abx - Pulm consulted (Mary Anne), recs appreciated 3. Chest Pain - ACS ruled out - EKG reviewed and appreciated - trops x3 negative - lipid profile reviewed, elevated TG at 270, HDL low at 30 - HbA1C 5.4 - CT angiography- No pleural embolism, Bilateral breast implants. Loculated left pleural effusion with surrounding rim raising the possibility of empyema. Small right pleural effusion. Left axillary edema and soft tissue density. Left lower chest wall edema extending into the upper abdomen. Right lung nodules. Mediastinal and left hilar lymph nodes. Compression fractures age indeterminate. - echo shows EF 55-60% 4. Anemia - stable - pRBCs transfused x2 06/14/17 - iron studies: iron 51, TIBC 206, %sat 25, transferrin 147.44, Ferritin 1800 - vit B12 >1000 and folate 5.4 - Heme/Onc (Beckie) consulted, recs appreciated * started Aranesp 100 mg weekly - continue to monitor 5. Rash - continue nystatin 6. Hx of Stage IV Breast Cancer - hematology/oncology consulted- appreciate recommendations - prognosis is poor, palliative consulted due to lack of patient insight - pain control: Switched to oxycodone and fentanyl patch 7. Hx of Lymphedema of LUE -secondary to above -palpable pulses -compression stocking for LUE -elevation - venous duplex normal - arterial doppler: PVR waveforms blunted but discussed with IR and currently ok to observe since she has good pulses -pain control as above -continue PT 8. Constipation -likely 2/2 chronic opiate use -miralax; Will add colace today 9. Electrolyte imbalance monitor and replete as needed 10. Elevated LFTs - stable - essentially unchanged from admission, continue to monitor - avoid hepatotoxins Ppx: Protonix for GI, Heparin for DVT Further recs as per Dr. Pedrito Lieberman PGY1 <Jermaine Major - Last Filed: 06/22/17 15:22> Objective - Vital Signs/Intake and Output Vital Signs (last 24 hours): Temp Pulse Resp BP Pulse Ox 98.9 F 120 H 20 119/81 90 L 06/21/17 16:00 06/21/17 18:00 06/21/17 16:00 06/21/17 16:00 06/21/17 16:00 - Labs Labs: 06/21/17 05:50 06/21/17 05:50 PT 13.1 SECONDS (9.4-12.5) H 06/10/17 07:10 INR 1.14 (0.93-1.08) H 06/10/17 07:10 APTT 30.1 Seconds (25.1-36.5) 06/10/17 07:10 Attending/Attestation - Attestation I have personally seen and examined this patient.: Yes I have fully participated in the care of the patient.: Yes I have reviewed all pertinent clinical information, including history, physical exam and plan: Yes Notes (Text): 06/22/17 15:18 Patient was seen and examined with medical scribe. Agreed with assessment and plan. 51 year old female with PMH of of metastatic breast cancer who presented with dysphagia and chest discomfort. CT chest showed left sided pleural effusion . She is s/p thoracocentesis. She was seen by pulmonary and CT surgery. She has completed treatment for HCAP Pneumonia She is afebrile, . Leukocytosis is improving. She was evaluated by GI and ENT as well.She is on Puree diet, oral intake is very poor. Her anemia has improved after prbc transfusion. Will continue to monitor. Hypokalemia/Hypomagnasemia , Will replete and repeat potassium. Continue to monitor LFTs closely. Overall prognosis is poor; palliative evaluation evaluation was appreciated. [facility] acute rehab has been recommended,Case management is working on disposition. Management plan was discussed in detail with patient. Education was provided.
[2017-06-18] MEDS ORDERED: Potassium Chloride 40 mEq/30 ml LIQ UD PO ONE (17:30)
[2017-06-19] MEDS: oxyCODONE 10 mg Immediate Release Tab PO PRN ×6 (00:07→23:54)
[2017-06-19 06:24] LABS: HEMOGLOBIN 10.3 g/dL (12.0-16.0); MEAN CELL VOLUME 86.9 fl (80.0-105.0); MEAN CORPUSCULAR HGB CONC 29.9 g/dl (31.0-37.0); MEAN PLATELET VOLUME 9.2 fl (7.0-11.0); RBC 3.96 10^6/uL (3.5-6.1); RED CELL DISTRIBUTION WIDTH 23.2 % (11.5-14.5); WHITE BLOOD COUNT 22.8 10^3/ul (4.5-11.0)
[2017-06-19 06:39] LABS: BLOOD UREA NITROGEN 3 mg/dL (7-21); CALCIUM 7.2 mg/dL (8.4-10.5); GFR AFRICAN-AMERICAN > 60; GFR NON-AFRICAN AMERICAN > 60; MAGNESIUM 1.5 mg/dL (1.7-2.2)
[2017-06-19] MEDS ORDERED: Magnesium Sulfate 2 GM in Sodium Chloride 0.9% 100 ML IVPB ONE (06:45)
[2017-06-19] MEDS: Potassium Chloride 20 mEq ER Tab PO SCH ×3 (08:10→16:11)
--- NOTE | 2017-06-19 08:57 | CP.PCM.PN ---
<Lary Dodd - Last Filed: 06/19/17 12:18> Subjective - Date & Time of Evaluation Date of Evaluation: 06/19/17 Time of Evaluation: 08:54 - Subjective Subjective: Patient seen and examined at bedside. No acute events overnight. Patient resting comfortably in bed but complaining of new onset urinary frequency. Still having mild chest pain, back pain, and left arm pain/swelling. Denies SOB , abdominal pain, n/v/d. Objective - Vital Signs/Intake and Output Vital Signs (last 24 hours): Temp Pulse Resp BP Pulse Ox 98.6 F 110 H 22 131/84 97 06/19/17 08:04 06/19/17 08:04 06/19/17 08:04 06/19/17 08:04 06/19/17 08:04 Intake and Output: 06/19/17 06/19/17 06:59 18:59 Intake Total 480 Output Total 400 Balance 80 - Medications Medications: Current Medications Albuterol/Ipratropium (Duoneb 3 Mg/0.5 Mg (3 Ml) Ud) 3 ml IH [id number] PRN PRN Reason: Shortness of Breath Darbepoetin Joe (Aranesp) 100 mcg IVP MON [facility] Last Admin: 06/18/17 10:20 Dose: 100 mcg Dexamethasone (Decadron) 1 mg PO BID [facility] Last Admin: 06/18/17 19:53 Dose: 1 mg Docusate Sodium (Colace) 100 mg PO DAILY [facility] Famotidine (Pepcid) 40 mg PO HS [facility] Last Admin: 06/18/17 21:45 Dose: 40 mg Fentanyl (Duragesic) 1 patch TD Q72H [facility] Last Admin: 06/18/17 13:05 Dose: 1 patch Heparin Sodium (Porcine) (Heparin) 5,000 units SC Q8 [facility] PRN Reason: Protocol Last Admin: 06/19/17 05:28 Dose: 5,000 units Potassium Chloride (Potassium Chloride 10 Meq/100 Ml) 10 meq in 100 mls @ 50 mls/hr IVPB ONCE ONE Stop: 06/19/17 10:44 Nystatin (Nystop Topical Powder) 1 gm TOP DAILY [facility] Last Admin: 06/18/17 10:23 Dose: 1 appl Oxycodone HCl (Oxycodone Immediate Release Tab) 10 mg PO Q6H PRN PRN Reason: Pain, moderate (4-7) Last Admin: 06/19/17 05:28 Dose: 10 mg Polyethylene Glycol (Miralax) 17 gm PO BID [facility] Last Admin: 06/18/17 18:40 Dose: 17 gm Potassium Chloride (K-Dur 20 Meq Er Tab) 40 meq PO Q4 [facility] Stop: 06/19/17 16:01 Last Admin: 06/19/17 08:10 Dose: 40 meq - Labs Labs: 06/19/17 05:30 06/19/17 05:30 PT 13.1 SECONDS (9.4-12.5) H 06/10/17 07:10 INR 1.14 (0.93-1.08) H 06/10/17 07:10 APTT 30.1 Seconds (25.1-36.5) 06/10/17 07:10 - Constitutional Appears: Non-toxic, No Acute Distress, Chronically Ill - Head Exam Head Exam: ATRAUMATIC, NORMAL INSPECTION, NORMOCEPHALIC - Eye Exam Eye Exam: EOMI, Normal appearance, PERRL - ENT Exam ENT Exam: Mucous Membranes Moist - Respiratory Exam Respiratory Exam: Clear to Ausculation Bilateral, NORMAL BREATHING PATTERN Additional comments: breath sounds R>L - Cardiovascular Exam Cardiovascular Exam: RRR, +S1, +S2 - GI/Abdominal Exam GI & Abdominal Exam: Soft, Normal Bowel Sounds. absent: Distended, Tenderness - Extremities Exam Extremities Exam: absent: Calf Tenderness, Pedal Edema Additional comments: L arm swelling - Neurological Exam Neurological Exam: Alert, Awake, Oriented x3 - Psychiatric Exam Psychiatric exam: Normal Affect, Normal Mood - Skin Skin Exam: Dry, Intact, Normal Color, Warm Assessment and Plan - Assessment and Plan (Free Text) Assessment: 51yo F with PMH of metastatic breast CA to lung and bone who was admitted for evaluation and treatment of chest discomfort and dysphagia/hoarseness of voice. Plan: Disposition: Discharge pending [facility] acceptance. Awaiting Dr. Butts to see and discuss options with patient. Will need to start oral potassium replacement daily. Will monitor on tele until K>3. 1. Dysphagia, Hoarseness of Voice - head CT- No acute findings - soft tissue neck CT- Left clavicular lymphadenopathy. Edema of the left trapezius muscle and surrounding fat. Heterogeneity C7 and T1 vertebrae - barium swallow study showing moderate dysphagia with risk for aspiration - tolerating pureed with thin liquids as recommended per speech - GI consulted (Michael), recs appreciated * no plan for EGD at this time - ENT consulted (Ledy), recs appreciated -Will taper off decadron: 1mg PO BID starting today. 2. Exudative pleural effusion - Lights criteria met for exudative effusion - CT surgery consulted (Dr. Balderrama), -No plans from CT surgery standpoint at this time. - Diagnostic Thoracenthesis on 06/11 by IR - Pleural fluid appeared dark brown and cloudy - Light's criteria: * Pleural/serum protein: 0.53 * Pleural/serum LDH: 1.2 * Pleural LDH: 1360 * Pleural pH: 10 - Infectious disease consulted, recs appreciated * Completed vanc/merrem. No need for continuing abx - Pulm consulted (Mary Anne), recs appreciated 3. Chest Pain - ACS ruled out - EKG reviewed and appreciated - trops x3 negative - lipid profile reviewed, elevated TG at 270, HDL low at 30 - HbA1C 5.4 - CT angiography- No pleural embolism, Bilateral breast implants. Loculated left pleural effusion with surrounding rim raising the possibility of empyema. Small right pleural effusion. Left axillary edema and soft tissue density. Left lower chest wall edema extending into the upper abdomen. Right lung nodules. Mediastinal and left hilar lymph nodes. Compression fractures age indeterminate. - echo shows EF 55-60% 4. Anemia - stable - pRBCs transfused x2 06/14/17 - iron studies: iron 51, TIBC 206, %sat 25, transferrin 147.44, Ferritin 1800 - vit B12 >1000 and folate 5.4 - Heme/Onc (Beckie) consulted, recs appreciated * started Aranesp 100 mg weekly - continue to monitor 5. Rash - continue nystatin 6. Hx of Stage IV Breast Cancer - hematology/oncology consulted- appreciate recommendations - prognosis is poor, palliative consulted due to lack of patient insight - pain control: Switched to oxycodone and fentanyl patch 7. Hx of Lymphedema of LUE -secondary to above -palpable pulses -compression stocking for LUE -elevation - venous duplex normal - arterial doppler: PVR waveforms blunted but discussed with IR and currently ok to observe since she has good pulses -pain control as above -continue PT 8. Constipation -likely 2/2 chronic opiate use -miralax; Will add colace today 9. Hypokalemia -place on tele until potassium >3 -follow up BMP after replacement 10. Elevated LFTs - stable - essentially unchanged from admission, continue to monitor - avoid hepatotoxins Ppx: Protonix for GI, Heparin for DVT Further recs as per Dr. Major <Jermaine Major - Last Filed: 06/22/17 15:26> Objective - Vital Signs/Intake and Output Vital Signs (last 24 hours): Temp Pulse Resp BP Pulse Ox 98.9 F 120 H 20 119/81 90 L 06/21/17 16:00 06/21/17 18:00 06/21/17 16:00 06/21/17 16:00 06/21/17 16:00 - Labs Labs: 06/21/17 05:50 06/21/17 05:50 PT 13.1 SECONDS (9.4-12.5) H 06/10/17 07:10 INR 1.14 (0.93-1.08) H 06/10/17 07:10 APTT 30.1 Seconds (25.1-36.5) 06/10/17 07:10 Attending/Attestation - Attestation I have personally seen and examined this patient.: Yes I have fully participated in the care of the patient.: Yes I have reviewed all pertinent clinical information, including history, physical exam and plan: Yes Notes (Text): 06/22/17 15:23 Patient was seen and examined with certified medical coding specialist. Agreed with assessment and plan. 51 year old female with PMH of of metastatic breast cancer who presented with dysphagia and chest discomfort. CT chest showed left sided pleural effusion . She is s/p thoracocentesis. She was seen by pulmonary and CT surgery. She has completed treatment for HCAP Pneumonia She is afebrile, . She was evaluated by GI and ENT as well.She is on Puree diet, oral intake is very poor. Her anemia has improved after prbc transfusion. Will continue to monitor.Hemoglobin is stable. Hypokalemia/Hypomagnasemia , Will replete and repeat potassium and magnesium We will order urine electrolyte Patient pain medications has been adjusted, Avoid constipation. [facility] acute rehab has been recommended,Case management is working on disposition Overall prognosis is poor; . Management plan was discussed in detail with patient. Education was provided.
[2017-06-19] MEDS ORDERED: oxyCODONE 10 mg Immediate Release Tab PO PRN (10:21)
[2017-06-19] MEDS ORDERED: Magnesium Oxide 400 mg Tab UD PO ONE (10:39)
[2017-06-19] MEDS: POLYETHYLENE GLYCOL 3350 17 GM/Dose PACKET PO SCH ×2 (11:02→17:29)
[2017-06-19] MEDS: Nystatin 100,000 Units/gm Topical Pow(15 gm) TOP SCH (11:04)
--- NOTE | 2017-06-19 12:22 | CARD ---
APPROVED REPORT EKG Measurement Heart [id number] <Conclusion> Sinus tachycardia with short MA Low voltage QRS T wave abnormality, consider inferior ischemia T wave abnormality, consider anterior ischemia Abnormal ECG
[2017-06-19 14:58] LABS: BLOOD UREA NITROGEN 4 mg/dL (7-21); CALCIUM 7.3 mg/dL (8.4-10.5); GFR AFRICAN-AMERICAN > 60; GFR NON-AFRICAN AMERICAN > 60
--- NOTE | 2017-06-19 15:12 | PN ---
DATE: 06/19/2017 SUBJECTIVE: The patient is lying in bed. Complaining of pain once again. Current regimen of pain is not alleviating any of her arm pain as well as her back pain. She denies any other complaints at this point. She still has difficulty swallowing, but is able to tolerate her breakfast this morning. PHYSICAL EXAMINATION: VITAL SIGNS: Reveal a temperature of 98.6, pulse of 110, respiratory rate of 22 and a blood pressure of 131/84. GENERAL: The patient is a middle-aged -[place] female, lying in bed, in no acute distress. HEENT: Head and neck normocephalic, atraumatic. Eyes: Pupils equal, round and reactive to light and accommodation. Extraocular muscles are intact. There is some pallor. No icterus is noted. NECK: Supple without adenopathy. No JVD. No thyromegaly. LUNGS: Decreased breath sounds bilaterally, left more than right. CARDIOVASCULAR: S1 and S2 are heard. The patient is tachycardic and tachypneic. ABDOMEN: Positive bowel sounds, soft, nontender and nondistended. No organomegaly is palpated. EXTREMITIES: There is bilateral lower extremity edema as well as lymphedema in the left upper extremity. LABORATORY DATA: Her labs reveal a white count of 22.8 and hemoglobin of 10.3, hematocrit 34.4, MCV of 86.9 and platelet count of 352. Chemistries are within normal limits except for a markedly low potassium of 2.3. ASSESSMENT AND PLAN: Middle-aged female with widely metastatic breast cancer, now with progressive disease. She has failed multiple chemotherapy. She has triple-negative disease. She is also not a candidate for any clinical trials. At this point, she has had several opinions including [facility] as well as [facility]. Unfortunately, she does not qualify for any current clinical trials. Overall prognosis is guarded. Has had multiple discussions with the patient regarding overall terminal nature of the disease. Continue pain management aggressively. The patient to be transferred to subacute today for further management. Thank you for the consult. We will follow. Duyen Butts MD
[2017-06-19] MEDS ORDERED: Potassium Chloride 20 mEq ER Tab PO ONE (15:26)
--- NOTE | 2017-06-20 00:54 | PN ---
DATE: 06/19/2017 REFERRING PHYSICIAN: Dr. Greer. SUBJECTIVE: She is lying in the bed, head at 45 degree. Mother is at the bedside. Night was unremarkable. Short of breath with exertion. No nausea, no vomiting, or diarrhea. No leg pain or leg swelling. She has significant lymphedema of the left upper extremity. PHYSICAL EXAMINATION: GENERAL: In no acute distress. VITAL SIGNS: Temperature 99, heart rate 110, respiratory rate 22, blood pressure 139/84, pulse ox 97% on room air. HEENT: Moist mucous membrane. Crowded airway. NECK: Supple. No JVD. Left upper extremity lymphedema. HEART: S1 and S2. CHEST: Decreased breath sounds in the left lung. ABDOMEN: Soft, nontender. No organomegaly. EXTREMITIES: No edema. NEUROLOGICAL: Awake, alert, follows simple commands. MEDICATIONS: She is on Aranesp 100 mcg weekly, Colace 100 mg daily, Decadron 1 mg twice a day, DuoNeb q. 6 hours, Duragesic patch q. 72 hours, heparin 5000 units subcutaneously q. 8 hours, MiraLax 17 g twice a day, nystatin 1 g daily, oxycodone immediate release 10 mg q. 4 hour p.r.n., Pepcid 40 mg at bedtime, potassium 20 mEq daily. LABORATORY DATA: Hemoglobin 10.3, hematocrit 34.4, WBC 22.8, platelet is 352. Sodium 141, potassium 2.2, chloride 95, bicarbonate 28, BUN 4, creatinine 0.4, glucose 75, calcium 7.3, and magnesium is 1.5. Microbiology: Pleural fluid, there is no growth. IMPRESSION AND PLAN: Metastatic breast cancer, recurrent pleural effusions - requiring thoracentesis, left upper extremity lymphedema, chronic pain syndrome, hypokalemia, very poor p.o. intake, may be one of the cause. We will continue pain management. Keep head elevated at 45 degrees, supplemental oxygen. Overall poor prognosis. Pain management. SCDs to lower extremities, deep vein thrombosis prophylaxis. Thank you and we will follow with you. Jermaine North MD
[2017-06-20] MEDS: oxyCODONE 10 mg Immediate Release Tab PO PRN ×5 (05:26→22:46)
[2017-06-20 08:36] LABS: BASO # 0.03 K/mm3 (0.0-2.0); BASO % 0.1 % (0.0-3.0); GRAN # 23.95 (1.4-6.5); HEMOGLOBIN 10.4 g/dL (12.0-16.0); LYMPH # 0.4 (1.2-3.4); LYMPH % 1.6 % (22.0-35.0); MEAN CELL VOLUME 87.2 fl (80.0-105.0); MEAN CORPUSCULAR HEMOGLOBIN 26.7 pg (25.0-35.0); MEAN CORPUSCULAR HGB CONC 30.6 g/dl (31.0-37.0); MEAN PLATELET VOLUME 9.2 fl (7.0-11.0); MONO # 0.8 (0.1-0.6); MONO % 3.3 % (1.0-6.0); PLATELET COUNT 354 10^3/uL (120.0-450.0); RED CELL DISTRIBUTION WIDTH 22.9 % (11.5-14.5)
[2017-06-20 08:55] LABS: ALB/GLOB RATIO 1.1 (1.1-1.8); ALBUMIN 2.7 g/dL (3.0-4.8); ALT/SGPT 26 U/L (7-56); AST/SGOT 49 U/L (14-36); BLOOD UREA NITROGEN 4 mg/dL (7-21); CALCIUM 7.1 mg/dL (8.4-10.5); GFR AFRICAN-AMERICAN > 60; GFR NON-AFRICAN AMERICAN > 60; MAGNESIUM 1.7 mg/dL (1.7-2.2)
[2017-06-20 09:07] LABS: WHITE BLOOD COUNT 25.2 10^3/ul (4.5-11.0)
[2017-06-20] MEDS: Potassium Chloride 20 mEq ER Tab PO SCH ×4 (09:48→20:53)
[2017-06-20] MEDS: POLYETHYLENE GLYCOL 3350 17 GM/Dose PACKET PO SCH ×2 (09:49→17:26)
[2017-06-20] MEDS: Nystatin 100,000 Units/gm Topical Pow(15 gm) TOP SCH (09:49)
[2017-06-20 09:58] LABS: LYMPHOCYTE 2 % (22.0-35.0); MONOCYTE 2 % (1.0-6.0); NEUTROPHIL 96 % (50.0-70.0); PLATELET ESTIMATE NORMAL (NORMAL)
[2017-06-20 09:59] LABS: ANISOCYTOSIS 1+; HYPOCHROMIA SLIGHT
[2017-06-20] MEDS ORDERED: Potassium Chloride 40 MEQ in Dextrose 5%/0.9% NS 1,000 ML IV SCH (11:45)
[2017-06-20] MEDS: Magnesium Oxide 400 mg Tab UD PO SCH (11:48)
--- NOTE | 2017-06-20 13:05 | CP.PCM.PN ---
<Lary Dodd - Last Filed: 06/20/17 13:02> Subjective - Date & Time of Evaluation Date of Evaluation: 06/20/17 Time of Evaluation: 13:02 - Subjective Subjective: Patient seen and examined at bedside. Patient resting comfortably in bed with no new complaints at this time. Patient is not eating well because she wants more than pureed food and is asking for a soft diet. She says her swallowing is improving. Denies chest pain, SOB, abdominal pain, N&V, diarrhea, leg pain/ swelling. Objective - Vital Signs/Intake and Output Vital Signs (last 24 hours): Temp Pulse Resp BP Pulse Ox 98.6 F 115 H 22 138/90 97 06/20/17 08:32 06/20/17 10:00 06/20/17 08:32 06/20/17 08:32 06/20/17 08:32 Intake and Output: 06/20/17 06/20/17 06:59 18:59 Intake Total 300 Balance 300 - Medications Medications: Current Medications Albuterol/Ipratropium (Duoneb 3 Mg/0.5 Mg (3 Ml) Ud) 3 ml IH [id number] PRN PRN Reason: Shortness of Breath Darbepoetin Joe (Aranesp) 100 mcg IVP MON [facility] Last Admin: 06/18/17 10:20 Dose: 100 mcg Dexamethasone (Decadron) 1 mg PO BID [facility] Last Admin: 06/20/17 09:48 Dose: 1 mg Docusate Sodium (Colace) 100 mg PO DAILY [facility] Last Admin: 06/20/17 09:48 Dose: 100 mg Famotidine (Pepcid) 40 mg PO HS [facility] Last Admin: 06/19/17 21:37 Dose: 40 mg Fentanyl (Duragesic) 1 patch TD Q72H [facility] Last Admin: 06/19/17 11:00 Dose: 1 patch Heparin Sodium (Porcine) (Heparin) 5,000 units SC Q8 [facility] PRN Reason: Protocol Last Admin: 06/20/17 05:27 Dose: 5,000 units Potassium Chloride (Potassium Chloride 20 Meq/100 Ml) 20 meq in 100 mls @ 50 mls/hr IVPB Q2H [facility] Stop: 06/20/17 14:59 Last Admin: 06/20/17 11:49 Dose: 50 mls/hr Potassium Chloride 40 meq/ (Dextrose/Sodium Chloride) 1,020 mls @ 70 mls/hr IV .[id number] [facility] Magnesium Oxide (Mag-Ox) 400 mg PO DAILY [facility] Stop: 06/22/17 10:01 Last Admin: 06/20/17 11:48 Dose: 400 mg Nystatin (Nystop Topical Powder) 1 gm TOP DAILY [facility] Last Admin: 06/20/17 09:49 Dose: 1 appl Oxycodone HCl (Oxycodone Immediate Release Tab) 10 mg PO Q4H PRN PRN Reason: Pain, moderate (4-7) Last Admin: 06/20/17 09:48 Dose: 10 mg Polyethylene Glycol (Miralax) 17 gm PO BID [facility] Last Admin: 06/20/17 09:49 Dose: 17 gm Potassium Chloride (K-Dur 20 Meq Er Tab) 20 meq PO BRK [facility] Last Admin: 06/20/17 09:48 Dose: 20 meq Potassium Chloride (K-Dur 20 Meq Er Tab) 40 meq PO Q4 [facility] Stop: 06/20/17 20:01 Last Admin: 06/20/17 11:48 Dose: 40 meq - Labs Labs: 06/20/17 08:25 06/20/17 12:00 PT 13.1 SECONDS (9.4-12.5) H 06/10/17 07:10 INR 1.14 (0.93-1.08) H 06/10/17 07:10 APTT 30.1 Seconds (25.1-36.5) 06/10/17 07:10 - Additional Findings Additional findings: - Constitutional Appears: Non-toxic, No Acute Distress, Chronically Ill - Head Exam Head Exam: ATRAUMATIC, NORMAL INSPECTION, NORMOCEPHALIC - Eye Exam Eye Exam: EOMI, Normal appearance, PERRL - ENT Exam ENT Exam: Mucous Membranes Moist - Respiratory Exam Respiratory Exam: Clear to Ausculation Bilateral, NORMAL BREATHING PATTERN Additional comments: breath sounds R>L - Cardiovascular Exam Cardiovascular Exam: RRR, +S1, +S2 - GI/Abdominal Exam GI & Abdominal Exam: Soft, Normal Bowel Sounds. absent: Distended, Tenderness - Extremities Exam Extremities Exam: absent: Calf Tenderness, Pedal Edema Additional comments: L arm swelling - Neurological Exam Neurological Exam: Alert, Awake, Oriented x3 - Psychiatric Exam Psychiatric exam: Normal Affect, Normal Mood - Skin Skin Exam: Dry, Intact, Normal Color, Warm Assessment and Plan - Assessment and Plan (Free Text) Assessment: 51yo F with PMH of metastatic breast CA to lung and bone who was admitted for evaluation and treatment of chest discomfort and dysphagia/hoarseness of voice. Plan: Disposition: Potassium remains low despite large amount repleated. Will conitnue to repleat and monitor on tele until K>3. Started on D5NS + 40 meq K and advanced diet to soft. 1. Dysphagia, Hoarseness of Voice - head CT- No acute findings - soft tissue neck CT- Left clavicular lymphadenopathy. Edema of the left trapezius muscle and surrounding fat. Heterogeneity C7 and T1 vertebrae - barium swallow study showing moderate dysphagia with risk for aspiration - started soft diet 05/20/17 since patient refusing to eat with pureed foods - GI consulted (Michael), recs appreciated * no plan for EGD at this time - ENT consulted (Ledy), recs appreciated -Will taper off decadron: 1mg PO BID starting today. 2. Exudative pleural effusion - Lights criteria met for exudative effusion - CT surgery consulted (Dr. Balderrama), -No plans from CT surgery standpoint at this time. - Diagnostic Thoracenthesis on 06/11 by IR - Pleural fluid appeared dark brown and cloudy - Light's criteria: * Pleural/serum protein: 0.53 * Pleural/serum LDH: 1.2 * Pleural LDH: 1360 * Pleural pH: 10 - Infectious disease consulted, recs appreciated * Completed vanc/merrem. No need for continuing abx - Pulm consulted (Mary Anne), recs appreciated 3. Chest Pain - ACS ruled out - EKG reviewed and appreciated - trops x3 negative - lipid profile reviewed, elevated TG at 270, HDL low at 30 - HbA1C 5.4 - CT angiography- No pleural embolism, Bilateral breast implants. Loculated left pleural effusion with surrounding rim raising the possibility of empyema. Small right pleural effusion. Left axillary edema and soft tissue density. Left lower chest wall edema extending into the upper abdomen. Right lung nodules. Mediastinal and left hilar lymph nodes. Compression fractures age indeterminate. - echo shows EF 55-60% 4. Anemia - stable - pRBCs transfused x2 06/14/17 - iron studies: iron 51, TIBC 206, %sat 25, transferrin 147.44, Ferritin 1800 - vit B12 >1000 and folate 5.4 - Heme/Onc (Beckie) consulted, recs appreciated * started Aranesp 100 mg weekly - continue to monitor 5. Rash - continue nystatin 6. Hx of Stage IV Breast Cancer - hematology/oncology consulted- appreciate recommendations - prognosis is poor, palliative consulted due to lack of patient insight - pain control: Switched to oxycodone and fentanyl patch 7. Hx of Lymphedema of LUE -secondary to above -palpable pulses -compression stocking for LUE -elevation - venous duplex normal - arterial doppler: PVR waveforms blunted but discussed with IR and currently ok to observe since she has good pulses -pain control as above -continue PT 8. Constipation -likely 2/2 chronic opiate use -miralax; Will add colace today 9. Hypokalemia -on tele until potassium >3 -follow up BMP after replacement -started on D5NS + 40 meq K -f/u urine electrolytes and consult nephrology if needed 10. Elevated LFTs - stable - essentially unchanged from admission, continue to monitor - avoid hepatotoxins Ppx: Protonix for GI, Heparin for DVT Further recs as per Dr. Major <Jermaine Major - Last Filed: 06/22/17 15:30> Objective - Vital Signs/Intake and Output Vital Signs (last 24 hours): Temp Pulse Resp BP Pulse Ox 98.9 F 120 H 20 119/81 90 L 06/21/17 16:00 06/21/17 18:00 06/21/17 16:00 06/21/17 16:00 06/21/17 16:00 - Labs Labs: 06/21/17 05:50 06/21/17 05:50 PT 13.1 SECONDS (9.4-12.5) H 06/10/17 07:10 INR 1.14 (0.93-1.08) H 06/10/17 07:10 APTT 30.1 Seconds (25.1-36.5) 06/10/17 07:10 Attending/Attestation - Attestation I have personally seen and examined this patient.: Yes I have fully participated in the care of the patient.: Yes I have reviewed all pertinent clinical information, including history, physical exam and plan: Yes Notes (Text): 06/22/17 15:27 Patient was seen and examined with district medical examiner. Agreed with assessment and plan. 51 year old female with PMH of of metastatic breast cancer who presented with dysphagia and chest discomfort. CT chest showed left sided pleural effusion . Patient is s/p thoracocentesis. She was seen by pulmonary and CT surgery. She has completed treatment for HCAP Pneumonia She is afebrile, She was evaluated by GI and ENT as well.She is tolerating soft mechanical diet. Her anemia has improved after prbc transfusion. Will continue to monitor.Hemoglobin is stable. Hypokalemia has improved , on replacement Patient pain medications has been adjusted,Pain is better controlled. Avoid constipation. Patient will be discharged to [facility] She will follow up with Oncology and Pulmonary as out patient. We will taperdown and discontinue steroid Overall prognosis is poor; . Management plan was discussed in detail with patient. Education was provided.
[2017-06-20 15:50] LABS: BLOOD UREA NITROGEN 5 mg/dL (7-21); CALCIUM 7.5 mg/dL (8.4-10.5); GFR AFRICAN-AMERICAN > 60; GFR NON-AFRICAN AMERICAN > 60
--- NOTE | 2017-06-20 16:21 | PN ---
DATE: 06/20/2017 PULMONARY PROGRESS NOTE REFERRING PHYSICIAN: Dr. Greer. SUBJECTIVE: She is lying in the bed, sleepy, arousable, elevated left upper extremity over the pillow. Night was unremarkable. No cough, no sputum production, no hemoptysis, no hematemesis, no hematuria, no diarrhea reported. OBJECTIVE: GENERAL: In no acute distress. VITAL SIGNS: Temp is , heart rate is 120, respiratory rate is 22, blood pressure 138/90, pulse ox 97% on room air. HEENT: Moist mucous membrane. No ulcer or thrush. NECK: Supple. No JVD. LUNGS: Decreased breath sound in the left lung. HEART: S1, S2. ABDOMEN: Soft, nontender. No organomegaly. EXTREMITIES: No edema. She has a left upper extremity lymphedema. NEUROLOGIC: Sleepy, arousable, follow simple commands. MEDICATIONS: She is on Aranesp 100 mcg weekly, Colace 100 mg daily, Decadron 1 mg twice a day, DuoNeb q. 6 hours p.r.n., Duragesic patch q. 72 hours, heparin 5000 units subcu q. 8 hours, potassium 20 mEq daily, magnesium oxide 400 mg daily, MiraLax 17 g twice a day, oxycodone immediate release 10 mg q. 4 hours p.r.n., Pepcid mg at bedtime, potassium IV 40 mL per hour. LABORATORY DATA: Shows hemoglobin 10.4, hematocrit 34.7, WBC 25, platelet is 354. Sodium 141, potassium 2.4, chloride 95, bicarbonate 30, BUN 4, creatinine 0.3, glucose is 68, calcium is 7.1, magnesium 1.7, AST 49, ALT 26, alk phos is 107, albumin is 2.7. IMPRESSION AND PLAN: Metastatic breast cancer, recurrent pleural effusion requiring thoracentesis, left upper extremity lymphedema, chronic pain syndrome, persistent hypokalemia. Spoke to patient's brother and mother at bedside. All the questions answered. Continue bronchodilator, keep head at 45 degrees, incentive spirometry, encourage p.o. intake, potassium replacement as per primary team, being followed by Dr. Butts Oncology point of view. Overall poor prognosis. Continue supportive care and pain management. Thank you and we will follow with you. Jermaine North MD [facility] # [phone]
[2017-06-20 19:33] LABS: BLOOD UREA NITROGEN 5 mg/dL (7-21); CALCIUM 7.5 mg/dL (8.4-10.5); GFR AFRICAN-AMERICAN > 60; GFR NON-AFRICAN AMERICAN > 60; MAGNESIUM 1.8 mg/dL (1.7-2.2)
[2017-06-21] MEDS: oxyCODONE 10 mg Immediate Release Tab PO PRN ×5 (02:46→18:29)
[2017-06-21 07:09] LABS: ALB/GLOB RATIO 1.1 (1.1-1.8); ALBUMIN 2.8 g/dL (3.0-4.8); ALT/SGPT 26 U/L (7-56); AST/SGOT 52 U/L (14-36); BASO # 0.03 K/mm3 (0.0-2.0); BASO % 0.1 % (0.0-3.0); BLOOD UREA NITROGEN 4 mg/dL (7-21); CALCIUM 7.6 mg/dL (8.4-10.5); GFR AFRICAN-AMERICAN > 60; GFR NON-AFRICAN AMERICAN > 60; GRAN # 21.93 (1.4-6.5); GRAN % 93.9 % (50.0-68.0); HEMOGLOBIN 10.3 g/dL (12.0-16.0); LYMPH # 0.3 (1.2-3.4); LYMPH % 1.3 % (22.0-35.0); MAGNESIUM 1.7 mg/dL (1.7-2.2); MEAN CELL VOLUME 88.6 fl (80.0-105.0); MEAN CORPUSCULAR HEMOGLOBIN 26.1 pg (25.0-35.0); MEAN CORPUSCULAR HGB CONC 29.4 g/dl (31.0-37.0); MEAN PLATELET VOLUME 9.9 fl (7.0-11.0); MONO # 1.1 (0.1-0.6); MONO % 4.7 % (1.0-6.0); RBC 3.95 10^6/uL (3.5-6.1); RED CELL DISTRIBUTION WIDTH 23.3 % (11.5-14.5); WHITE BLOOD COUNT 23.4 10^3/ul (4.5-11.0)
[2017-06-21 08:46] VITALS: RESP 20
[2017-06-21] MEDS: Potassium Chloride 20 mEq ER Tab PO SCH (10:20)
[2017-06-21] MEDS: POLYETHYLENE GLYCOL 3350 17 GM/Dose PACKET PO SCH ×2 (10:20→18:29)
[2017-06-21] MEDS: Magnesium Oxide 400 mg Tab UD PO SCH (10:21)
[2017-06-21] MEDS: Nystatin 100,000 Units/gm Topical Pow(15 gm) TOP SCH (10:42)
--- NOTE | 2017-06-21 15:17 | CP.PCM.PN ---
<Lary Dodd - Last Filed: 06/21/17 15:15> Subjective - Date & Time of Evaluation Date of Evaluation: 06/21/17 Time of Evaluation: 07:30 - Subjective Subjective: Patient seen and examined at bedside. Patient resting comfortably in bed with no new complaints at this time. Patient is tolerating new soft diet. Denies chest pain, SOB, abdominal pain, N&V, diarrhea, leg pain/swelling. Objective - Vital Signs/Intake and Output Vital Signs (last 24 hours): Temp Pulse Resp BP Pulse Ox 98.1 F 125 H 20 125/85 97 06/21/17 08:45 06/21/17 14:00 06/21/17 08:45 06/21/17 08:45 06/21/17 08:45 Intake and Output: 06/21/17 06/21/17 06:59 18:59 Intake Total 920 Output Total 300 Balance 620 - Medications Medications: Current Medications Albuterol/Ipratropium (Duoneb 3 Mg/0.5 Mg (3 Ml) Ud) 3 ml IH [id number] PRN PRN Reason: Shortness of Breath Darbepoetin Joe (Aranesp) 100 mcg IVP MON [facility] Last Admin: 06/18/17 10:20 Dose: 100 mcg Dexamethasone (Decadron) 1 mg PO BID [facility] Last Admin: 06/21/17 10:20 Dose: 1 mg Docusate Sodium (Colace) 100 mg PO DAILY [facility] Last Admin: 06/21/17 10:21 Dose: Not Given Famotidine (Pepcid) 40 mg PO HS [facility] Last Admin: 06/20/17 22:38 Dose: 40 mg Fentanyl (Duragesic) 1 patch TD Q72H [facility] Last Admin: 06/19/17 11:00 Dose: 1 patch Heparin Sodium (Porcine) (Heparin) 5,000 units SC Q8 [facility] PRN Reason: Protocol Last Admin: 06/21/17 14:31 Dose: 5,000 units Potassium Chloride 40 meq/ (Dextrose/Sodium Chloride) 1,020 mls @ 70 mls/hr IV .[id number] [facility] Last Admin: 06/20/17 17:12 Dose: 70 mls/hr Magnesium Oxide (Mag-Ox) 400 mg PO DAILY [facility] Stop: 06/22/17 10:01 Last Admin: 06/21/17 10:21 Dose: 400 mg Nystatin (Nystop Topical Powder) 1 gm TOP DAILY [facility] Last Admin: 06/21/17 10:42 Dose: 1 appl Oxycodone HCl (Oxycodone Immediate Release Tab) 10 mg PO Q4H PRN PRN Reason: Pain, moderate (4-7) Last Admin: 06/21/17 14:31 Dose: 10 mg Polyethylene Glycol (Miralax) 17 gm PO BID [facility] Last Admin: 06/21/17 10:20 Dose: 17 gm Potassium Chloride (K-Dur 20 Meq Er Tab) 40 meq PO BID [facility] - Labs Labs: 06/21/17 05:50 06/21/17 05:50 PT 13.1 SECONDS (9.4-12.5) H 06/10/17 07:10 INR 1.14 (0.93-1.08) H 06/10/17 07:10 APTT 30.1 Seconds (25.1-36.5) 06/10/17 07:10 - Additional Findings Additional findings: - Constitutional Appears: Non-toxic, No Acute Distress, Chronically Ill - Head Exam Head Exam: ATRAUMATIC, NORMAL INSPECTION, NORMOCEPHALIC - Eye Exam Eye Exam: EOMI, Normal appearance, PERRL - ENT Exam ENT Exam: Mucous Membranes Moist - Respiratory Exam Respiratory Exam: Clear to Ausculation Bilateral, NORMAL BREATHING PATTERN Additional comments: breath sounds R>L - Cardiovascular Exam Cardiovascular Exam: RRR, +S1, +S2 - GI/Abdominal Exam GI & Abdominal Exam: Soft, Normal Bowel Sounds. absent: Distended, Tenderness - Extremities Exam Extremities Exam: absent: Calf Tenderness, Pedal Edema Additional comments: L arm swelling - Neurological Exam Neurological Exam: Alert, Awake, Oriented x3 - Psychiatric Exam Psychiatric exam: Normal Affect, Normal Mood - Skin Skin Exam: Dry, Intact, Normal Color, Warm Assessment and Plan - Assessment and Plan (Free Text) Assessment: 51yo F with PMH of metastatic breast CA to lung and bone who was admitted for evaluation and treatment of chest discomfort and dysphagia/hoarseness of voice. Plan: Disposition: Potassium improved to >3 today, can d/c telemetry. Awaiting [facility] placement. 1. Dysphagia, Hoarseness of Voice - head CT- No acute findings - soft tissue neck CT- Left clavicular lymphadenopathy. Edema of the left trapezius muscle and surrounding fat. Heterogeneity C7 and T1 vertebrae - barium swallow study showing moderate dysphagia with risk for aspiration - started soft diet 05/20/17 since patient refusing to eat with pureed foods - GI consulted (Michael), recs appreciated * no plan for EGD at this time - ENT consulted (Ledy), recs appreciated -Will taper off decadron: 1mg PO BID starting today. 2. Exudative pleural effusion - Lights criteria met for exudative effusion - CT surgery consulted (Dr. Balderrama), -No plans from CT surgery standpoint at this time. - Diagnostic Thoracenthesis on 06/11 by IR - Pleural fluid appeared dark brown and cloudy - Light's criteria: * Pleural/serum protein: 0.53 * Pleural/serum LDH: 1.2 * Pleural LDH: 1360 * Pleural pH: 10 - Infectious disease consulted, recs appreciated * Completed vanc/merrem. No need for continuing abx - Pulm consulted (Mary Anne), recs appreciated 3. Chest Pain - ACS ruled out - EKG reviewed and appreciated - trops x3 negative - lipid profile reviewed, elevated TG at 270, HDL low at 30 - HbA1C 5.4 - CT angiography- No pleural embolism, Bilateral breast implants. Loculated left pleural effusion with surrounding rim raising the possibility of empyema. Small right pleural effusion. Left axillary edema and soft tissue density. Left lower chest wall edema extending into the upper abdomen. Right lung nodules. Mediastinal and left hilar lymph nodes. Compression fractures age indeterminate. - echo shows EF 55-60% 4. Anemia - stable - pRBCs transfused x2 06/14/17 - iron studies: iron 51, TIBC 206, %sat 25, transferrin 147.44, Ferritin 1800 - vit B12 >1000 and folate 5.4 - Heme/Onc (Beckie) consulted, recs appreciated * started Aranesp 100 mg weekly - continue to monitor 5. Rash - continue nystatin 6. Hx of Stage IV Breast Cancer - hematology/oncology consulted- appreciate recommendations - prognosis is poor, palliative consulted due to lack of patient insight - pain control: Switched to oxycodone and fentanyl patch 7. Hx of Lymphedema of LUE -secondary to above -palpable pulses -compression stocking for LUE -elevation - venous duplex normal - arterial doppler: PVR waveforms blunted but discussed with IR and currently ok to observe since she has good pulses -pain control as above -continue PT 8. Constipation -likely 2/2 chronic opiate use -miralax; Will add colace today 9. Hypokalemia -on tele until potassium >3 -follow up BMP after replacement -started on D5NS + 40 meq K -f/u urine electrolytes and consult nephrology if needed 10. Elevated LFTs - stable - essentially unchanged from admission, continue to monitor - avoid hepatotoxins Ppx: Protonix for GI, Heparin for DVT Further recs as per Dr. Major <Jermaine Major - Last Filed: 06/22/17 15:31> Objective - Vital Signs/Intake and Output Vital Signs (last 24 hours): Temp Pulse Resp BP Pulse Ox 98.9 F 120 H 20 119/81 90 L 06/21/17 16:00 06/21/17 18:00 06/21/17 16:00 06/21/17 16:00 06/21/17 16:00 - Labs Labs: 06/21/17 05:50 06/21/17 05:50 PT 13.1 SECONDS (9.4-12.5) H 06/10/17 07:10 INR 1.14 (0.93-1.08) H 06/10/17 07:10 APTT 30.1 Seconds (25.1-36.5) 06/10/17 07:10 Attending/Attestation - Attestation I have personally seen and examined this patient.: Yes I have fully participated in the care of the patient.: Yes I have reviewed all pertinent clinical information, including history, physical exam and plan: Yes Notes (Text): 06/22/17 15:31 Patient was seen and examined with district medical examiner. Agreed with assessment and plan. 51 year old female with PMH of of metastatic breast cancer who presented with dysphagia and chest discomfort. CT chest showed left sided pleural effusion . Patient is s/p thoracocentesis. She was seen by pulmonary and CT surgery. She has completed treatment for HCAP Pneumonia She is afebrile, She was evaluated by GI and ENT as well.She is tolerating soft mechanical diet. Her anemia has improved after prbc transfusion. Will continue to monitor.Hemoglobin is stable.Hypokalemia has improved , on replacement Patient pain medications has been adjusted,Pain is better controlled.Avoid constipation. Patient will be discharged to [facility] She will follow up with Oncology and Pulmonary as out patient. We will taper down and discontinue steroid Overall prognosis is poor; Management plan was discussed in detail with patient. Education was provided.
[2017-06-21] MEDS ORDERED: oxyCODONE 10 mg Immediate Release Tab PO STA (15:58)
[2017-06-21 16:35] VITALS: BP 119/81; TEMP 98.9; O2SAT 90
--- NOTE | 2017-06-21 16:46 | CP.PCM.PN ---
Subjective - Date & Time of Evaluation Date of Evaluation: 06/21/17 Time of Evaluation: 14:00 - Subjective Subjective: Alert, complaining of pain in right arm. Objective - Vital Signs/Intake and Output Vital Signs (last 24 hours): Temp Pulse Resp BP Pulse Ox 98.1 F 125 H 20 125/85 97 06/21/17 08:45 06/21/17 14:00 06/21/17 08:45 06/21/17 08:45 06/21/17 08:45 Intake and Output: 06/21/17 06/21/17 06:59 18:59 Intake Total 920 Output Total 300 Balance 620 - Medications Medications: Current Medications Albuterol/Ipratropium (Duoneb 3 Mg/0.5 Mg (3 Ml) Ud) 3 ml IH [id number] PRN PRN Reason: Shortness of Breath Darbepoetin Joe (Aranesp) 100 mcg IVP MON [facility] Last Admin: 06/18/17 10:20 Dose: 100 mcg Dexamethasone (Decadron) 1 mg PO BID [facility] Last Admin: 06/21/17 10:20 Dose: 1 mg Docusate Sodium (Colace) 100 mg PO DAILY [facility] Last Admin: 06/21/17 10:21 Dose: Not Given Famotidine (Pepcid) 40 mg PO HS [facility] Last Admin: 06/20/17 22:38 Dose: 40 mg Fentanyl (Duragesic) 1 patch TD Q72H [facility] Last Admin: 06/19/17 11:00 Dose: 1 patch Heparin Sodium (Porcine) (Heparin) 5,000 units SC Q8 [facility] PRN Reason: Protocol Last Admin: 06/21/17 14:31 Dose: 5,000 units Potassium Chloride 40 meq/ (Dextrose/Sodium Chloride) 1,020 mls @ 70 mls/hr IV .[id number] [facility] Last Admin: 06/20/17 17:12 Dose: 70 mls/hr Magnesium Oxide (Mag-Ox) 400 mg PO DAILY [facility] Stop: 06/22/17 10:01 Last Admin: 06/21/17 10:21 Dose: 400 mg Nystatin (Nystop Topical Powder) 1 gm TOP DAILY [facility] Last Admin: 06/21/17 10:42 Dose: 1 appl Oxycodone HCl (Oxycodone Immediate Release Tab) 10 mg PO Q4H PRN PRN Reason: Pain, moderate (4-7) Last Admin: 06/21/17 14:31 Dose: 10 mg Polyethylene Glycol (Miralax) 17 gm PO BID [facility] Last Admin: 06/21/17 10:20 Dose: 17 gm Potassium Chloride (K-Dur 20 Meq Er Tab) 40 meq PO BID [facility] - Labs Labs: 06/21/17 05:50 06/21/17 05:50 PT 13.1 SECONDS (9.4-12.5) H 06/10/17 07:10 INR 1.14 (0.93-1.08) H 06/10/17 07:10 APTT 30.1 Seconds (25.1-36.5) 06/10/17 07:10 - Constitutional Appears: Chronically Ill - Eye Exam Eye Exam: Normal appearance, PERRL - ENT Exam ENT Exam: Mucous Membranes Moist - Neck Exam Neck Exam: Normal Inspection - Respiratory Exam Respiratory Exam: Decreased Breath Sounds, NORMAL BREATHING PATTERN - Cardiovascular Exam Cardiovascular Exam: REGULAR RHYTHM, +S1, +S2 - GI/Abdominal Exam GI & Abdominal Exam: Soft, Normal Bowel Sounds (right arm lymphedema) - Extremities Exam Additional comments: lypmphedema right arm - Neurological Exam Neurological Exam: Alert, Oriented x3 - Psychiatric Exam Psychiatric exam: Depressed - Skin Skin Exam: Dry, Warm Assessment and Plan - Assessment and Plan (Free Text) Assessment: 51 year old female with history of metastatic breast cancer who is admitted with pleural effusions s/p thoracentisis, lymphedema, chronic pain and hypokalemia. Kali MONCADA and I met with Ms. Cheng. She states that she just completed physical therapy treatment and is in pain. When asked how she has been tolerating treatments she states that she is fine. She also went on to say that she intended to go to [facility] so that she could rebuild her strength in order to continue chemotherapy. She is adamant that doctors will continue chemotherapy treatment in the future once she gets "stronger". She is not open to further discussion regarding her health or goals of care. When revisiting the topic of advance care planning she stated that she did not want to talk about these things. Patient only willing to discuss transition to [facility] at this time. Time spent in goals of care discussion, 20 minutes Plan: Palliative support in establishing goals of care
[2017-06-21] MEDS ORDERED: Potassium Chloride 20 mEq ER Tab PO SCH (18:00)
[2017-06-21 18:46] VITALS: PULSE 120
--- NOTE | 2017-06-21 23:59 | PN ---
DATE: 06/21/2017 PULMONARY PROGRESS NOTE REFERRING PHYSICIAN: Jermaine Major MD. SUBJECTIVE: She is sitting on side of the bed. Daughter is bedside. Night was unremarkable. Has some decreased swelling of the left upper extremity. No nausea. No vomiting, diarrhea, leg pain, leg swelling. OBJECTIVE: GENERAL: In no acute distress. VITAL SIGNS: Temperature is 98, heart rate 120, respiratory rate is 20, blood pressure 119/81, pulse ox 90% on room air. HEENT: Moist mucous membrane. Crowded airway. NECK: Supple. No JVD. LUNGS: Have fair airflow. Degree breath sounds on the left lung. HEART: S1 and S2. ABDOMEN: Soft, nontender. No organomegaly. EXTREMITIES: There is no edema of the lower extremity. Left upper extremity has lymphedema. NEUROLOGICAL: Awake, alert. Follows simple command. MEDICATIONS: She is on Aranesp 100 mcg weekly, Colace 100 mg daily, Decadron 1 mg twice a day, DuoNeb q. 6 hours p.r.n., Duragesic patch q. 72 hours. heparin 5000 units subcu q. 8 hours, potassium 20 mEq twice a day, mag oxide 400 mg daily, MiraLax 17 g twice a day, oxycodone immediate release 10 mg q. 4 hours p.r.n., Pepcid 40 mg daily, potassium with IV fluids. LABORATORY DATA: Shows hemoglobin 10.3, hematocrit 35.0, WBC 23,000, platelet is 381. INR 1.14, PTT is 30. Sodium 143, potassium 3.3, chloride 97, bicarbonate 32, BUN 4, creatinine 0.4, glucose 81, calcium is 7.6, magnesium 1.7, total bili 0.7, AST 42, ALT 26, alk phos is 120. Albumin is 2.8. IMPRESSION AND PLAN: Metastatic breast cancer; recurrent pleural effusion, requiring thoracentesis; left upper extremity lymphedema; chronic pain syndrome; electrolyte imbalance. I spoke to the patient on her bedside. All the questions answered. Continue incentive spirometer. Keep head at 45 degrees. Diuretics, pain management. Elevate left upper extremity. Gastric and deep venous thrombosis prophylaxis. Oncology followup. Thank you and we will follow with you. Jermaine North MD [facility] # [id number]
--- NOTE | 2017-06-22 10:44 | CP.PCM.DIS ---
<Lary Dodd - Last Filed: 06/22/17 10:25> Provider - Provider Date of Admission: 06/09/17 22:11 Attending physician: Jermaine Major MD Consults: Dr. Beckie North Time Spent in preparation of Discharge (in minutes): 35 Hospital Course - Lab Results Lab Results: Micro Results 06/11/17 18:30 Pleural Fluid Anaerobic Culture - Final NO ANAEROBES ISOLATED. 06/11/17 18:30 Pleural Fluid Body Fluid Culture - Final No growth. 06/09/17 23:15 Blood Blood Culture - Final NO GROWTH AFTER 5 DAYS 06/09/17 23:15 Blood Gram Stain - Final TEST NOT PERFORMED 06/11/17 18:30 Other: Please Indicate Mycobacterial Culture - Final 06/10/17 11:30 Urine Urine Culture - Final No Growth (<1,000 CFU/ML) Most Recent Lab Values WBC 23.4 10^3/ul (4.5-11.0) H 06/21/17 05:50 RBC 3.95 10^6/uL (3.5-6.1) 06/21/17 05:50 Hgb 10.3 g/dL (12.0-16.0) L 06/21/17 05:50 Hct 35.0 % (36.0-48.0) L 06/21/17 05:50 MCV 88.6 fl (80.0-105.0) 06/21/17 05:50 MCH 26.1 pg (25.0-35.0) 06/21/17 05:50 MCHC 29.4 g/dl (31.0-37.0) L 06/21/17 05:50 RDW 23.3 % (11.5-14.5) H 06/21/17 05:50 Plt Count 381 10^3/uL (120.0-450.0) 06/21/17 05:50 MPV 9.9 fl (7.0-11.0) 06/21/17 05:50 Gran % 93.9 % (50.0-68.0) H 06/21/17 05:50 Lymph % (Auto) 1.3 % (22.0-35.0) L 06/21/17 05:50 [place] % (Auto) 4.7 % (1.0-6.0) 06/21/17 05:50 Eos % (Auto) 0.0 % (1.5-5.0) L 06/21/17 05:50 Baso % (Auto) 0.1 % (0.0-3.0) 06/21/17 05:50 Gran # 21.93 (1.4-6.5) H 06/21/17 05:50 Lymph # (Auto) 0.3 (1.2-3.4) L 06/21/17 05:50 [place] # (Auto) 1.1 (0.1-0.6) H 06/21/17 05:50 Eos # (Auto) 0.0 (0.0-0.7) 06/21/17 05:50 Baso # (Auto) 0.03 K/mm3 (0.0-2.0) 06/21/17 05:50 Neutrophils % (Manual) 96 % (50.0-70.0) H 06/20/17 08:25 Band Neutrophils % 2 % (0-2) 06/17/17 07:00 Lymphocytes % (Manual) 2 % (22.0-35.0) L 06/20/17 08:25 Monocytes % (Manual) 2 % (1.0-6.0) 06/20/17 08:25 Nucleated RBC % 2 % 06/17/17 07:00 Toxic Granulation 1+ 06/13/17 06:30 Platelet Evaluation Normal (NORMAL) 06/20/17 08:25 Large Platelets Present 06/17/17 07:00 Polychromasia Slight 06/13/17 06:30 Hypochromasia Slight 06/20/17 08:25 Poikilocytosis (manual Slight 06/17/17 07:00 Anisocytosis (manual) 1+ 06/20/17 08:25 Tear Drop Cells Slight 06/17/17 07:00 Ovalocytes Slight 06/17/17 07:00 Helmet Cells Slight 06/13/17 06:30 [place] Cells Slight 06/17/17 07:00 PT 13.1 SECONDS (9.4-12.5) H 06/10/17 07:10 INR 1.14 (0.93-1.08) H 06/10/17 07:10 APTT 30.1 Seconds (25.1-36.5) 06/10/17 07:10 pO2 101 mm/Hg (30-55) H 06/12/17 06:14 VBG pH 7.38 (7.32-7.43) 06/12/17 06:14 VBG pCO2 46.0 (40-60) 06/12/17 06:14 VBG HCO3 27.2 mmol/l (21-28) 06/12/17 06:14 VBG Total CO2 28.6 mmol.L (22-28) H 06/12/17 06:14 VBG O2 Sat (Calc) 99.5 % (40-65) H 06/12/17 06:14 VBG Base Excess 1.5 mmol/L (0.0-2.0) 06/12/17 06:14 VBG Potassium 3.0 mmol/L (3.6-5.2) L 06/12/17 06:14 Sodium 144.0 mmol/L (132-148) 06/12/17 06:14 Chloride 108.0 mmol/L (98-107) H 06/12/17 06:14 Glucose 90 mg/dl (65-105) 06/12/17 06:14 Lactate 3.7 mmol/L (0.7-2.1) H 06/12/17 06:14 FiO2 21.0 % 06/12/17 06:14 Sodium 143 mmol/L (132-148) 06/21/17 05:50 Potassium 3.3 mmol/L (3.6-5.0) L 06/21/17 05:50 Chloride 97 mmol/L (98-107) L 06/21/17 05:50 Carbon Dioxide 32 mmol/L (21-33) 06/21/17 05:50 Anion Gap 18 (10-20) 06/21/17 05:50 BUN 4 mg/dL (7-21) L 06/21/17 05:50 Creatinine 0.4 mg/dl (0.7-1.2) L 06/21/17 05:50 Est GFR ( Amer) > 60 06/21/17 05:50 Est GFR (Non-Af Amer) > 60 06/21/17 05:50 POC Glucose (mg/dL) 61 mg/dL (65-110) L 06/10/17 00:18 Random Glucose 81 mg/dL (70-110) 06/21/17 05:50 Hemoglobin A1c 5.4 % (4.2-6.5) 06/10/17 07:10 Calcium 7.6 mg/dL (8.4-10.5) L 06/21/17 05:50 Phosphorus 2.3 mg/dL (2.5-4.5) L 06/10/17 07:10 Iron 51 ug/dL (45-180) 06/11/17 14:14 TIBC 206 ug/dL (265-497) L 06/11/17 14:14 % Saturation 25 % (20-55) 06/11/17 14:14 Transferrin 147.44 mg/dL (206-381) L 06/11/17 14:14 Magnesium 1.7 mg/dL (1.7-2.2) 06/21/17 05:50 Ferritin 1800.0 ng/mL 06/11/17 14:14 Total Bilirubin 0.7 mg/dL (0.2-1.3) 06/21/17 05:50 AST 52 U/L (14-36) H 06/21/17 05:50 ALT 26 U/L (7-56) 06/21/17 05:50 Alkaline Phosphatase 120 U/L (38-126) 06/21/17 05:50 Lactate Dehydrogenase 1110 U/L (333-699) H 06/11/17 18:35 Total Creatine Kinase 104 U/L (35-230) 06/10/17 15:40 Troponin I < 0.01 ng/mL 06/10/17 15:40 NT-Pro-B Natriuret Pep 228 pg/mL (0-450) 06/09/17 18:21 Total Protein 5.3 g/dL (5.8-8.3) L 06/21/17 05:50 Albumin 2.8 g/dL (3.0-4.8) L 06/21/17 05:50 Globulin 2.5 gm/dL 06/21/17 05:50 Albumin/Globulin Ratio 1.1 (1.1-1.8) 06/21/17 05:50 Triglycerides 270 mg/dL (35-160) H 06/10/17 07:10 Cholesterol 120 mg/dL (130-200) L 06/10/17 07:10 LDL Cholesterol Direct 47 mg/dL (0-129) 06/10/17 07:10 HDL Cholesterol 30 mg/dL (29-60) 06/10/17 07:10 Vitamin B12 > 1000 pg/mL (239-931) H 06/11/17 14:14 Folate 5.4 ng/mL 06/11/17 14:14 Procalcitonin 0.36 NG/ML (0.19-0.49) 06/14/17 08:30 Venous Blood Potassium 3.0 mmol/L (3.6-5.2) L 06/12/17 06:14 Urine Color Yellow (YELLOW) 06/10/17 06:30 Urine Appearance Clear (CLEAR) 06/10/17 06:30 Urine pH 6.5 (4.7-8.0) 06/10/17 06:30 Ur Specific [place] 1.010 (1.005-1.035) 06/10/17 06:30 Urine Protein Trace mg/dL (<30 mg/dL) H 06/10/17 06:30 Urine Glucose (UA) Negative mg/dL (NEGATIVE) 06/10/17 06:30 Urine Ketones >=80 mg/dL (NEGATIVE) 06/10/17 06:30 Urine Blood Negative (NEGATIVE) 06/10/17 06:30 Urine Nitrate Negative (NEGATIVE) 06/10/17 06:30 Urine Bilirubin Small (NEGATIVE) H 06/10/17 06:30 Urine Urobilinogen 0.2 E.U./dL (<1 E.U./dL) 06/10/17 06:30 Ur Leukocyte Esterase Negative [place]/uL (NEGATIVE) 06/10/17 06:30 Urine RBC Negative /hpf (0-2) 06/10/17 06:30 Urine WBC Negative /hpf (0-6) 06/10/17 06:30 Ur Epithelial Cells 0 - 2 /hpf (0-5) 06/10/17 06:30 Urine Bacteria Trace (NEG) 06/10/17 06:30 Urine Other Uyeast 06/10/17 06:30 Ur Random Sodium 101 meq/L 06/20/17 14:45 Ur Random Potassium 54.5 meq/L 06/20/17 14:45 Fluid Source Pleural 06/11/17 18:35 Fluid Appearance Cloudy (CLEAR) 06/11/17 18:35 Fluid WBC 11.0 /uL (0.0-300.0) 06/11/17 18:35 Fluid RBC 440.0 /uL (0.0-0.0) H 06/11/17 18:35 Fluid Tot Cell Count 100 (0-0) H 06/11/17 18:35 Fluid Neutrophils 80.0 % (0-0) H 06/11/17 18:35 Fluid Lymphocytes 20.0 % (0-0) H 06/11/17 18:35 Fld Monocyte/Macrophag 0 % (0-0) 06/11/17 18:35 Fluid Comment Dark brown color 06/11/17 18:35 Pleural pH 10.0 06/11/17 18:30 Pleural Total Protein 3.1 g/dL 06/11/17 18:30 Pleural LDH 1360 U/L 06/11/17 18:30 Pleural Glucose 50 mg/dL 06/11/17 18:35 HIV 1&2 Ag/Ab, 4th Gen Nonreactive (Nonreactive) 06/10/17 15:40 Blood Type O POSITIVE 06/13/17 11:05 Antibody Screen Negative 06/13/17 11:05 Crossmatch See Detail 06/13/17 11:05 BBK History Checked Patient has bt 06/13/17 11:05 - Hospital Course Hospital Course: Upon admission: Patient is a 51 year old female with past medical history of stage 4 breast who presents to the emergency department for evaluation and treatment of chest discomfort and dysphagia/hoarseness of voice. States the dysphagia/hoarseness of voice began 3 days ago and denies specific provoking events. Admits to progressive dysphagia starting with difficultly swallowing solids and progressing to fluids. Currently is undergoing chemotherapy, last session was 2 weeks ago. Also admits to chest discomfort that remains localized to parasternal region and is described as being dull/aching with associated with diaphoresis. Denies exacerbating/remitting factors. Also admits to chronic left sided tongue deviation since April 2017. Patient states that Dr. Butts is aware of the deviation and attributes it to radiation therapy. Admits to baseline dyspnea on exertion. Admits to fungal rash in left axillary region. Denies recent travel and sick contacts. Patient denies intractable headache, fever, chills, dizziness, blurry vision, ringing in the ears, abdominal pain, nausea, vomiting, diarrhea, constipation, and urinary symptoms. Hospital course: Patient was admitted for chest pain with dysphagia and possible pleural effusion vs empyema. ACS ruled out with negative troponins, EKG showing no ST changes. Lipid profile reviewed, showing elevated TG at 270, HDL low at 30. CT angio showed no pleural embolism, Bilateral breast implants, Loculated left pleural effusion with surrounding rim raising the possibility of empyema, Small right pleural effusion, Left axillary edema and soft tissue density, Left lower chest wall edema extending into the upper abdomen, Right lung nodules, Mediastinal and left hilar lymph nodes, Compression fractures age indeterminate. Dr. Pool was consulted and he performed thoracentesis. Dr. Das was consulted for possible thoracotomy if paracentesis revealed empyema, however it was found to be an exudative pleural effusion. For dysphagia, ENT and GI were consulted. Head CT was negative for acute findings. Soft tissue neck CT showed left clavicular lymphadenopathy, edema of the left trapezius muscle and surrounding fat, and heterogeneity C7 and T1 vertebrae. Barium swallow showed moderate dysphagia with risk for aspiration and patient was started on pureed diet which was eventually advanced to softs per patient wishes since her dysphagia was resolving. Patient was wound to have chronic anemia. pRBCs transfused x2 units on 06/14/17. Iron studies showed: iron 51, TIBC 206, %sat 25, transferrin 147.44, Ferritin 1800. Vitamin B12 >1000 and folate 5.4. Heme/Onc (Beckie) consulted and she recommended starting Aranesp 100 mg weekly. Palliative care was consulted for lac of patient insight about her cancer, however, patient was not wanting palliative/hospice care at this time. Patient continued to have hypokalemia which was continuously replaced and eventually improved. She was started on potassium by mouth twice daily and counseled on foods high in potassium. Upon discharge: Patient was discharged to [facility] and instructed to follow up with her oncologist as well as maintain soft diet. Please note that this is a summary of events. For more details, please see complete medical record. Discharge Exam - Head Exam Head Exam: ATRAUMATIC, NORMAL INSPECTION, NORMOCEPHALIC - Additional Findings Additional findings: see progress note Discharge Plan - Discharge Medications Prescriptions: Dexamethasone [Decadron] 1 mg PO DAILY #5 tab Docusate [Colace] 100 mg PO DAILY 15 Days #30 cap Famotidine [Pepcid] 40 mg PO HS #15 tab fentaNYL 50 mcg/hr [Duragesic Patch 50 mcg/hr] 1 patch TD Q72H #2 patch Nystatin [Nystop Topical Powder] 1 gm TOP DAILY #30 bottle oxyCODONE [oxyCODONE Immediate Release Tab] 10 mg PO Q4H PRN #12 tab PRN Reason: Pain, Moderate (4-7) Potassium Chloride [K-Dur 20 mEq ER Tab] 40 meq PO BID #10 tab - Follow Up Plan Condition: STABLE Disposition: REHAB FACILITY/REHAB UNIT Instructions: Chest Pain (DC), Chest Pain (GEN), Hypokalemia (DC), Hypokalemia (GEN) Additional Instructions: Diet .Soft diet with assistance Activity Fall Precaution Follow up Follow up with Oncology in one week Follow up with Pulmonary in one week BMP in one days to follow up Hypokalemia Avoid Constipation <Jermaine Major - Last Filed: 06/22/17 15:33> Provider - Provider Date of Admission: 06/09/17 22:11 Attending physician: Jermaine Major MD Hospital Course - Lab Results Lab Results: Micro Results 06/11/17 18:30 Pleural Fluid Anaerobic Culture - Final NO ANAEROBES ISOLATED. 06/11/17 18:30 Pleural Fluid Body Fluid Culture - Final No growth. 06/09/17 23:15 Blood Blood Culture - Final NO GROWTH AFTER 5 DAYS 06/09/17 23:15 Blood Gram Stain - Final TEST NOT PERFORMED 06/11/17 18:30 Other: Please Indicate Mycobacterial Culture - Final 06/10/17 11:30 Urine Urine Culture - Final No Growth (<1,000 CFU/ML) Most Recent Lab Values WBC 23.4 10^3/ul (4.5-11.0) H 06/21/17 05:50 RBC 3.95 10^6/uL (3.5-6.1) 06/21/17 05:50 Hgb 10.3 g/dL (12.0-16.0) L 06/21/17 05:50 Hct 35.0 % (36.0-48.0) L 06/21/17 05:50 MCV 88.6 fl (80.0-105.0) 06/21/17 05:50 MCH 26.1 pg (25.0-35.0) 06/21/17 05:50 MCHC 29.4 g/dl (31.0-37.0) L 06/21/17 05:50 RDW 23.3 % (11.5-14.5) H 06/21/17 05:50 Plt Count 381 10^3/uL (120.0-450.0) 06/21/17 05:50 MPV 9.9 fl (7.0-11.0) 06/21/17 05:50 Gran % 93.9 % (50.0-68.0) H 06/21/17 05:50 Lymph % (Auto) 1.3 % (22.0-35.0) L 06/21/17 05:50 [place] % (Auto) 4.7 % (1.0-6.0) 06/21/17 05:50 Eos % (Auto) 0.0 % (1.5-5.0) L 06/21/17 05:50 Baso % (Auto) 0.1 % (0.0-3.0) 06/21/17 05:50 Gran # 21.93 (1.4-6.5) H 06/21/17 05:50 Lymph # (Auto) 0.3 (1.2-3.4) L 06/21/17 05:50 [place] # (Auto) 1.1 (0.1-0.6) H 06/21/17 05:50 Eos # (Auto) 0.0 (0.0-0.7) 06/21/17 05:50 Baso # (Auto) 0.03 K/mm3 (0.0-2.0) 06/21/17 05:50 Neutrophils % (Manual) 96 % (50.0-70.0) H 06/20/17 08:25 Band Neutrophils % 2 % (0-2) 06/17/17 07:00 Lymphocytes % (Manual) 2 % (22.0-35.0) L 06/20/17 08:25 Monocytes % (Manual) 2 % (1.0-6.0) 06/20/17 08:25 Nucleated RBC % 2 % 06/17/17 07:00 Toxic Granulation 1+ 06/13/17 06:30 Platelet Evaluation Normal (NORMAL) 06/20/17 08:25 Large Platelets Present 06/17/17 07:00 Polychromasia Slight 06/13/17 06:30 Hypochromasia Slight 06/20/17 08:25 Poikilocytosis (manual Slight 06/17/17 07:00 Anisocytosis (manual) 1+ 06/20/17 08:25 Tear Drop Cells Slight 06/17/17 07:00 Ovalocytes Slight 06/17/17 07:00 Helmet Cells Slight 06/13/17 06:30 [place] Cells Slight 06/17/17 07:00 PT 13.1 SECONDS (9.4-12.5) H 06/10/17 07:10 INR 1.14 (0.93-1.08) H 06/10/17 07:10 APTT 30.1 Seconds (25.1-36.5) 06/10/17 07:10 pO2 101 mm/Hg (30-55) H 06/12/17 06:14 VBG pH 7.38 (7.32-7.43) 06/12/17 06:14 VBG pCO2 46.0 (40-60) 06/12/17 06:14 VBG HCO3 27.2 mmol/l (21-28) 06/12/17 06:14 VBG Total CO2 28.6 mmol.L (22-28) H 06/12/17 06:14 VBG O2 Sat (Calc) 99.5 % (40-65) H 06/12/17 06:14 VBG Base Excess 1.5 mmol/L (0.0-2.0) 06/12/17 06:14 VBG Potassium 3.0 mmol/L (3.6-5.2) L 06/12/17 06:14 Sodium 144.0 mmol/L (132-148) 06/12/17 06:14 Chloride 108.0 mmol/L (98-107) H 06/12/17 06:14 Glucose 90 mg/dl (65-105) 06/12/17 06:14 Lactate 3.7 mmol/L (0.7-2.1) H 06/12/17 06:14 FiO2 21.0 % 06/12/17 06:14 Sodium 143 mmol/L (132-148) 06/21/17 05:50 Potassium 3.3 mmol/L (3.6-5.0) L 06/21/17 05:50 Chloride 97 mmol/L (98-107) L 06/21/17 05:50 Carbon Dioxide 32 mmol/L (21-33) 06/21/17 05:50 Anion Gap 18 (10-20) 06/21/17 05:50 BUN 4 mg/dL (7-21) L 06/21/17 05:50 Creatinine 0.4 mg/dl (0.7-1.2) L 06/21/17 05:50 Est GFR ( Amer) > 60 06/21/17 05:50 Est GFR (Non-Af Amer) > 60 06/21/17 05:50 POC Glucose (mg/dL) 61 mg/dL (65-110) L 06/10/17 00:18 Random Glucose 81 mg/dL (70-110) 06/21/17 05:50 Hemoglobin A1c 5.4 % (4.2-6.5) 06/10/17 07:10 Calcium 7.6 mg/dL (8.4-10.5) L 06/21/17 05:50 Phosphorus 2.3 mg/dL (2.5-4.5) L 06/10/17 07:10 Iron 51 ug/dL (45-180) 06/11/17 14:14 TIBC 206 ug/dL (265-497) L 06/11/17 14:14 % Saturation 25 % (20-55) 06/11/17 14:14 Transferrin 147.44 mg/dL (206-381) L 06/11/17 14:14 Magnesium 1.7 mg/dL (1.7-2.2) 06/21/17 05:50 Ferritin 1800.0 ng/mL 06/11/17 14:14 Total Bilirubin 0.7 mg/dL (0.2-1.3) 06/21/17 05:50 AST 52 U/L (14-36) H 06/21/17 05:50 ALT 26 U/L (7-56) 06/21/17 05:50 Alkaline Phosphatase 120 U/L (38-126) 06/21/17 05:50 Lactate Dehydrogenase 1110 U/L (333-699) H 06/11/17 18:35 Total Creatine Kinase 104 U/L (35-230) 06/10/17 15:40 Troponin I < 0.01 ng/mL 06/10/17 15:40 NT-Pro-B Natriuret Pep 228 pg/mL (0-450) 06/09/17 18:21 Total Protein 5.3 g/dL (5.8-8.3) L 06/21/17 05:50 Albumin 2.8 g/dL (3.0-4.8) L 06/21/17 05:50 Globulin 2.5 gm/dL 06/21/17 05:50 Albumin/Globulin Ratio 1.1 (1.1-1.8) 06/21/17 05:50 Triglycerides 270 mg/dL (35-160) H 06/10/17 07:10 Cholesterol 120 mg/dL (130-200) L 06/10/17 07:10 LDL Cholesterol Direct 47 mg/dL (0-129) 06/10/17 07:10 HDL Cholesterol 30 mg/dL (29-60) 06/10/17 07:10 Vitamin B12 > 1000 pg/mL (239-931) H 06/11/17 14:14 Folate 5.4 ng/mL 06/11/17 14:14 Procalcitonin 0.36 NG/ML (0.19-0.49) 06/14/17 08:30 Venous Blood Potassium 3.0 mmol/L (3.6-5.2) L 06/12/17 06:14 Urine Color Yellow (YELLOW) 06/10/17 06:30 Urine Appearance Clear (CLEAR) 06/10/17 06:30 Urine pH 6.5 (4.7-8.0) 06/10/17 06:30 Ur Specific [place] 1.010 (1.005-1.035) 06/10/17 06:30 Urine Protein Trace mg/dL (<30 mg/dL) H 06/10/17 06:30 Urine Glucose (UA) Negative mg/dL (NEGATIVE) 06/10/17 06:30 Urine Ketones >=80 mg/dL (NEGATIVE) 06/10/17 06:30 Urine Blood Negative (NEGATIVE) 06/10/17 06:30 Urine Nitrate Negative (NEGATIVE) 06/10/17 06:30 Urine Bilirubin Small (NEGATIVE) H 06/10/17 06:30 Urine Urobilinogen 0.2 E.U./dL (<1 E.U./dL) 06/10/17 06:30 Ur Leukocyte Esterase Negative [place]/uL (NEGATIVE) 06/10/17 06:30 Urine RBC Negative /hpf (0-2) 06/10/17 06:30 Urine WBC Negative /hpf (0-6) 06/10/17 06:30 Ur Epithelial Cells 0 - 2 /hpf (0-5) 06/10/17 06:30 Urine Bacteria Trace (NEG) 06/10/17 06:30 Urine Other Uyeast 06/10/17 06:30 Ur Random Sodium 101 meq/L 06/20/17 14:45 Ur Random Potassium 54.5 meq/L 06/20/17 14:45 Fluid Source Pleural 06/11/17 18:35 Fluid Appearance Cloudy (CLEAR) 06/11/17 18:35 Fluid WBC 11.0 /uL (0.0-300.0) 06/11/17 18:35 Fluid RBC 440.0 /uL (0.0-0.0) H 06/11/17 18:35 Fluid Tot Cell Count 100 (0-0) H 06/11/17 18:35 Fluid Neutrophils 80.0 % (0-0) H 06/11/17 18:35 Fluid Lymphocytes 20.0 % (0-0) H 06/11/17 18:35 Fld Monocyte/Macrophag 0 % (0-0) 06/11/17 18:35 Fluid Comment Dark brown color 06/11/17 18:35 Pleural pH 10.0 06/11/17 18:30 Pleural Total Protein 3.1 g/dL 06/11/17 18:30 Pleural LDH 1360 U/L 06/11/17 18:30 Pleural Glucose 50 mg/dL 06/11/17 18:35 HIV 1&2 Ag/Ab, 4th Gen Nonreactive (Nonreactive) 06/10/17 15:40 Blood Type O POSITIVE 06/13/17 11:05 Antibody Screen Negative 06/13/17 11:05 Crossmatch See Detail 06/13/17 11:05 BBK History Checked Patient has bt 06/13/17 11:05 Attending/Attestation - Attestation I have personally seen and examined this patient.: Yes I have fully participated in the care of the patient.: Yes I have reviewed all pertinent clinical information, including history, physical exam and plan: Yes Notes (Text): 06/22/17 15:32 Patient was seen and examined with diploma medical assistant. Agreed with assessment and plan. 51 year old female with PMH of of metastatic breast cancer who presented with dysphagia and chest discomfort. CT chest showed left sided pleural effusion . Patient is s/p thoracocentesis. She was seen by pulmonary and CT surgery. She has completed treatment for HCAP Pneumonia She is afebrile, She was evaluated by GI and ENT as well.She is tolerating soft mechanical diet. Her anemia has improved after prbc transfusion. Will continue to monitor.Hemoglobin is stable.Hypokalemia has improved , on replacement Patient pain medications has been adjusted,Pain is better controlled.Avoid constipation. Patient will be discharged to [facility] She will follow up with Oncology and Pulmonary as out patient. We will taper down and discontinue steroid Overall prognosis is poor; Management plan was discussed in detail with patient. Education was provided.
== END 2017-06-21 22:01 | DRG 186 ==
LOC: ED 16:42 → ERH 22:11 → 3RSO 06-10 00:04 → 3RNO 06-15 14:59
PROVIDERS: ADMIT Internal Medicine; ATTEND Internal Medicine
PROC: 0W9B3ZZ Drainage of Left Pleural Cavity, Percutaneous Approach (ICD-10-PCS; principal; 2017-06-11 17:00)
PROC: 30233N1 Transfusion of Nonautologous Red Blood Cells into Peripheral Vein, Percutaneous Approach (ICD-10-PCS; 2017-06-13)
DX: J90 Pleural effusion, not elsewhere classified (principal); A41.9 Sepsis, unspecified organism; L03.114 Cellulitis of left upper limb; C79.51 Secondary malignant neoplasm of bone; C78.00 Secondary malignant neoplasm of unspecified lung; R13.12 Dysphagia, oropharyngeal phase; C50.912 Malignant neoplasm of unspecified site of left female breast; D64.9 Anemia, unspecified; E87.6 Hypokalemia; R21 Rash and other nonspecific skin eruption; R47.02 Dysphasia; I89.0 Lymphedema, not elsewhere classified; R49.0 Dysphonia; F12.90 Cannabis use, unspecified, uncomplicated; R63.0 Anorexia; K59.00 Constipation, unspecified; T40.2X5A Adverse effect of other opioids, initial encounter; K14.8 Other diseases of tongue; R59.1 Generalized enlarged lymph nodes; Z98.82 Breast implant status; G89.4 Chronic pain syndrome; Z90.13 Acquired absence of bilateral breasts and nipples; Z87.891 Personal history of nicotine dependence; Z80.3 Family history of malignant neoplasm of breast